=== PATIENT | female | born 1955 | race Caucasian/White ===

== ENCOUNTER 2017-07-12 09:55 | Emergency (ER) | payer OTHER, SELFPAY ==
[2017-07-12 10:14] VITALS: BP 141/66; PULSE 107; RESP 20; TEMP 37.5; O2SAT 97; BMI 23.5
[2017-07-12 10:26] LABS: UTC Influenza A Antigen Positive (Negative); UTC Influenza B Antigen Negative (Negative)
--- NOTE | 2017-07-12 11:08 | HMH.EDUTC ---
[facility] [place] Clinical Impression: Influenza A Disposition: Home, Self-Care Condition on Discharge: Good Instructions: DI for Influenza -- Adult Additional Instructions: * Start Tamiflu today if you are going to take it. Discussed risks, side effects, risk of allergic reaction, and possible benefits. We even discussed hallucinations and uncontrollable fevers. Encouraged to monitor closely.. * Lots of rest * Increase fluids, water, gatorade, powerade, pedialyte if /toddler/child * Monitor Temp. If fever develops, consider reevaluation since you have had no fever up until this point. Tylenol every 4 hours as needed no more then 5 times a day or 4000mg in 24 hours and/or ibuprofen every 6 hours as needed no more then 3200mg in 24 hours (as long as your primary care doctor has told you that it is ok to take both) for fever/aches/pain. ER if fever no less than 101 despite tylenol and Ibuprofen * OTC cold/flu/sinus medication is ok but pick one. Do not take multiple different ones as they have similar ingredients and you can overdose on cold medication. * You (or your child) are contagious until no fever, aches, chills x 24 hours without medication for symptoms. Prescriptions: Oseltamivir Phosphate [Tamiflu 75mg Capsule] 75 mg PO BID #10 cap Referrals: Colt Monge MD [Primary Care Provider] - (IMMEDIATELY for new or worsening symptoms, improvement followed by suddenly feeling worse OR no noticeable improvement over the next 48-72 hours. 911 for difficulty breathing ) Time of Disposition: 11:12 Medical Decision Making Vital Signs: 07/12/17 10:14 Temperature 99.5 F Temperature Source Temporal Artery Scan Pulse Rate [Right Brachial] 107 H Respiratory Rate 20 Blood Pressure [Right Arm] 141/66 Blood Pressure Mean [Right Arm] 91 Blood Pressure Source [Right Arm] Automatic Cuff Blood Pressure Position [Right Arm] Sitting 02 Sat by Pulse Oximetry 97 Oxygen Delivery Method Room Air - Lab Data Lab results reviewed: Yes: I reviewed the patient's lab results. Lab Results 07/12/17 10:11: Influenza Type A Ag Positive A, Influenza Type B Ag Negative - Charlie Inquiry Pt receiving controlled substance: No [facility] [place] - General Stated complaint: sick for 3 days weak achey Time Seen by Provider: 07/12/17 10:45 Mode of Arrival: Ambulatory Source of Information: Patient Limitations: No Limitations Description of Symptoms (Recalled from Triage Doc. by RN): Pt c/o flu-like symptoms x3 days HEENT Symptoms (Recalled from RN notes): No Resp Symptoms (Recalled from RN notes): Yes (Flu-like symptoms) Skin Symptoms (Recalled from RN notes): No MS Symptoms (Recalled from RN notes): No Functional Status (Recalled from RN notes): n/a - History of Present Illness Provider Complaint: c/o bodyaches, chills, fatigue since day before yesterday. I think I have the flu . Latanya with flu around 2-3 weeks ago. Robitussin and nyquil have helped. No fever. - Related Data Previous Rx's Medication Instructions Recorded Oseltamivir Phosphate [Tamiflu 75 mg PO BID #10 cap 07/12/17 75mg Capsule] - Worker's Comp Is this a Worker's Comp case?: No [facility] History I have reviewed the patient's past medical history: Yes Medical History: Denies:: Cancer, Diabetes Mellitus Type 1, Diabetes Mellitus Type 2, MRSA Other Medical History: Reports: Other (overactive bladder) Other Surgeries: Yes: No Previous Surgery Amputation: No Fractures: No - *Social History Smoking Status: Never smoker Alcohol Intake: never - Psychiatric History Expresses thoughts of harming self/others: None Suicide Plan Description: No Plan ROS Obtained: Yes Systems reviewed as appropriate & no additional complaints - Constitutional Constitutional: Reports as per HPI, Denies difficulty sleeping - Eyes Eyes: Denies eye discharge, Denies eye pain (eye pain) - ENT Ears, Nose, Mouth, and Throat: Denies difficulty swallowing, Denies otalgia, Reports na
--- NOTE | 2017-07-12 11:12 | ED_ITS ---
[facility] [place] Clinical Impression: Influenza A Disposition: Home, Self-Care Condition on Discharge: Good Instructions: DI for Influenza -- Adult Additional Instructions: * Start Tamiflu today if you are going to take it. Discussed risks, side effects , risk of allergic reaction, and possible benefits. We even discussed hallucinations and uncontrollable fevers. Encouraged to monitor closely.. * Lots of rest * Increase fluids, water, gatorade, powerade, pedialyte if infant/toddler/child * Monitor Temp. If fever develops, consider reevaluation since you have had no fever up until this point. Tylenol every 4 hours as needed no more then 5 times a day or 4000mg in 24 hours and/or ibuprofen every 6 hours as needed no more then 3200mg in 24 hours (as long as your primary care doctor has told you that it is ok to take both) for fever/aches/pain. ER if fever no less than 101 despite tylenol and Ibuprofen * OTC cold/flu/sinus medication is ok but pick one. Do not take multiple different ones as they have similar ingredients and you can overdose on cold medication. * You (or your child) are contagious until no fever, aches, chills x 24 hours without medication for symptoms. Prescriptions: Oseltamivir Phosphate [Tamiflu 75mg Capsule] 75 mg PO BID #10 cap Referrals: Colt Monge MD [Primary Care Provider] - (IMMEDIATELY for new or worsening symptoms, improvement followed by suddenly feeling worse OR no noticeable improvement over the next 48-72 hours. 911 for difficulty breathing ) Time of Disposition: 11:12 Medical Decision Making Vital Signs: 07/12/17 10:14 Temperature 99.5 F Temperature Source Temporal Artery Scan Pulse Rate [Right Brachial] 107 H Respiratory Rate 20 Blood Pressure [Right Arm] 141/66 Blood Pressure Mean [Right Arm] 91 Blood Pressure Source [Right Arm] Automatic Cuff Blood Pressure Position [Right Arm] Sitting 02 Sat by Pulse Oximetry 97 Oxygen Delivery Method Room Air - Lab Data Lab results reviewed: Yes: I reviewed the patient's lab results. Lab Results 07/12/17 10:11: Influenza Type A Ag Positive A, Influenza Type B Ag Negative - Charlie Inquiry Pt receiving controlled substance: No [facility] [place] - General Stated complaint: sick for 3 days weak achey Time Seen by Provider: 07/12/17 10:45 Mode of Arrival: Ambulatory Source of Information: Patient Limitations: No Limitations Description of Symptoms (Recalled from Triage Doc. by RN): Pt c/o flu-like symptoms x3 days HEENT Symptoms (Recalled from RN notes): No Resp Symptoms (Recalled from RN notes): Yes (Flu-like symptoms) Skin Symptoms (Recalled from RN notes): No MS Symptoms (Recalled from RN notes): No Functional Status (Recalled from RN notes): n/a - History of Present Illness Provider Complaint: c/o bodyaches, chills, fatigue since day before yesterday. I think I have the flu . Grandson with flu around 2-3 weeks ago. Robitussin and nyquil have helped. No fever. - Related Data Previous Rx's Medication Instructions Recorded Oseltamivir Phosphate [Tamiflu 75 mg PO BID #10 cap 07/12/17 75mg Capsule] - Worker's Comp Is this a Worker's Comp case?: No [facility] History I have reviewed the patient's past medical history: Yes Medical History: Denies:: Cancer, Diabetes Mellitus Type 1, Diabetes Mellitus Type 2, MRSA Other Medical History: Reports: Other (overactive bladder) Other Surgeries: Yes: No Previous Surgery Amp
[2017-07-12 11:17] VITALS: BP 128/82; PULSE 77; RESP 20; TEMP 37.1; O2SAT 99
== END 2017-07-12 11:18 | disposition home or self-care (01) ==
PROVIDERS: Emergency Provider Nurse Practitioner Family; Family Provider Family Medicine; PCP Family Medicine
DX: J10.1 Influenza due to other identified influenza virus with other respiratory manifestations (principal)
CPT/HCPCS: 87804; 99201

== ENCOUNTER → 2017-12-12 10:00 | Outpatient (CLI) | payer OTHER, SELFPAY ==
--- NOTE | 2017-12-12 10:08 | XR_ITS ---
XR knee LT 3V HISTORY: Pain and swelling following injury ITS.REASON: knee pain ORDERING PHYSICIAN: Maxwell Cruz MD PATIENT AGE: 62 years COMPARISON: None FINDINGS: There is mild osteoarthritis of the medial compartment. No fracture or dislocation. No lytic or blastic change. IMPRESSION: Mild osteoarthritis of the medial compartment, no acute fracture
== END ==
PROVIDERS: PCP Family Medicine; Visit Provider Emergency Medicine
DX: M25.562 Pain in left knee (principal)
CPT/HCPCS: 73562

== ENCOUNTER 2018-01-03 23:36 | Observation (INO) ==
[2018-01-04 00:13] LABS: Basophils # 0.1 K/mm3 (0-0.2); Basophils % 0.6 % (0.1-2.0); Eosinophils # 0.2 K/mm3 (0.0-0.4); Eosinophils % 1.4 % (0.1-12.0); Hematocrit 40.6 % (37.0-47.0); Hemoglobin 13.4 g/dL (12.2-16.2); Lymphocytes # 1.7 K/mm3 (0.7-4.5); Lymphocytes % 12.1 K/mm3 (10-50); Mean Corpuscular HGB Conc 33.1 g/dL (31.8-35.4); Mean Corpuscular Hemoglobin 29.5 pg (27.0-31.2); Mean Corpuscular Volume 89.2 fl (81-99); Mean Platelet Volume 6.9 fl (7.4-10.4); Monocytes # 0.5 K/mm3 (0.1-1.0); Monocytes % 3.7 % (1.7-9.3); Neutrophils # 11.7 K/mm3 (1.8-7.8); Neutrophils % 82.3 % (37.0-80.0); Platelet Count 323 K/mm3 (142-424); Red Blood Count 4.55 M/mm3 (4.20-5.40); Red Cell Distribution Width 12.7 % (11.5-17.5); White Blood Count 14.2 K/mm3 (4.8-10.8)
[2018-01-04 00:17] LABS: Appearance,Urine CLEAR (Clear); Bilirubin,Urine Negative (Negative); Blood, Urine Negative (Negative); Color,Urine YELLOW (Yellow); Glucose,Urine (UA) Negative (Negative); Ketones,Urine Negative (Negative); Leukocyte Esterase,Urine TRACE (Negative); Microscopic, Urine URINE MICROSCOPIC (MICROSCOPIC); PH,Urine 8.5 (5.0-8.5); Protein,Urine Negative (Negative); Specific Gravity, Urine 1.015 (1.005-1.030); Urobilinogen,Urine 0.2 EU/dl (0.2)
[2018-01-04 00:22] LABS: Albumin Level 4.2 gm/dL (3.4-5.0); Anion Gap 8.9 mEq/L (5-15); Bilirubin,Total 0.3 mg/dL (0.2-1.0); Calcium 9.3 mg/dL (8.5-10.1); Globulin 4.3 gm/dl (1.3-3.2); Potassium 3.9 mmoL/L (3.5-5.1); Total Protein,Serum 8.5 gm/dL (6.4-8.2)
[2018-01-04 00:27] LABS: Amorphous Sediment,Urine 1+ /lpf; Bacteria,Urine 1+ /lpf
--- NOTE | 2018-01-04 01:43 | Emergency Department Note ---
ED Disposition Clinical Impression: Appendicitis Qualifiers: Appendicitis type: acute appendicitis Acute appendicitis type: unspecified acute appendicitis type Qualified Code(s): K35.80 - Unspecified acute appendicitis Disposition: Admitted as Observation Condition on Discharge: Good Time of Disposition: 01:43 - Critical Care Critical Care Time: No Attestation: On 01/03/18, the high probability of a clinically significant, sudden or life threatening deterioration of the following system(s) required my full and direct attention, intervention and personal management. The time I documented below is in addition to time spent performing reported procedures but includes the following listed in this critical care notation. Medical Decision Making - Medical Records Medical records reviewed: Yes: I reviewed the patient's medical records. - Charlie Inquiry Pt receiving controlled substance: No Vital Signs: 01/03/18 23:43 01/04/18 01:19 01/04/18 01:53 Temperature 98.9 F 98.9 F Temperature Source Oral Pulse Rate 85 Pulse Rate [Right Brachial] 89 68 Respiratory Rate 16 16 16 Blood Pressure 175/89 Blood Pressure [Right Arm] 155/101 181/86 Blood Pressure Mean [Right Arm] 119 117 Blood Pressure Source [Right Arm] Automatic Cuff Blood Pressure Position [Right Arm] Sitting 02 Sat by Pulse Oximetry 99 99 Oxygen Delivery Method Room Air Room Air - Lab Data Lab results reviewed: Yes: I reviewed the patient's lab results. Lab Results 01/03/18 00:12: Urine Color Yellow, Urine Appearance Clear, Urine pH 8.5, Ur Specific [place] 1.015, Urine Protein Negative, Urine Glucose (UA) Negative, Urine Ketones Negative, Urine Blood Negative, Urine Nitrate Negative, Urine Bilirubin Negative, Urine Urobilinogen 0.2, Ur Leukocyte Esterase Trace, Urine WBC 3-5, Amorphous Sediment 1+, Urine Bacteria 1+ 01/03/18 23:55: WBC 14.2 H, RBC 4.55, Hgb 13.4, Hct 40.6, MCV 89.2, MCH 29.5, MCHC 33.1, RDW 12.7, Plt Count 323, MPV 6.9 L, Neut % (Auto) 82.3 H, Lymph % ( Auto) 12.1, [place] % (Auto) 3.7, Eos % (Auto) 1.4, Baso % (Auto) 0.6, Neut # (Auto ) 11.7 H, Lymph # (Auto) 1.7, [place] # (Auto) 0.5, Eos # (Auto) 0.2, Baso # (Auto ) 0.1 01/03/18 23:55: Sodium 136, Potassium 3.9, Chloride 101, Carbon Dioxide 30, Anion Gap 8.9, BUN 11, Creatinine 0.89, Estimated Creat Clear 76, Estimated GFR 65, Est GFR ( Amer) 78, Glucose 132 H, Calcium 9.3, Total Bilirubin 0.3, AST 10 L, ALT 20, Alkaline Phosphatase 123 H, Total Protein 8.5 H, Albumin 4.2, Globulin 4.3 H, Albumin/Globulin Ratio 1.0 L, Amylase 44, Lipase 159 01/04/18 00:00: Lactate 0.8 Result diagrams: 01/03/18 23:55 01/03/18 23:55 Orders (Tests/Meds): ED MEDICATIONS Generic Name Dose Route Start Last Admin Trade Name Freq PRN Reason Stop Dose Admin Piperacillin Sod/Tazobactam 100 mls @ 200 mls/hr 01/04/18 07:30 Sod 3.375 gm/ Sodium Chloride IV 01/18/18 01:29 Q6H ROSINA Protocol Sodium Chloride 1,000 mls @ 125 mls/hr 01/04/18 01:50 01/04/18 02:48 Sod Chlor 0.9% 1000ml Bag IV 02/03/18 01:49 125 mls/hr .Q8H ROSINA Administration Morphine Sulfate 2 mg 01/04/18 01:50 01/04/18 02:54 Morphine 2mg/Ml Syringe IV 02/03/18 01:49 2 mg Q4HP PRN Administration Severe Pain Ondansetron HCl 4 mg 01/04/18 01:50 Zofran 4mg/2ml Vial IV 02/03/18 01:49 Q4HP PRN Nausea Sodium Chloride 10 ml 01/04/18 01:50 Saline Flush 10ml Syringe IV 02/03/18 01:49 NEEDED PRN Maintain IV Site Discontinued Medications Generic Name Dose Route Start Last Admin Trade Name Freq PRN Reason Stop Dose Admin Sodium Chloride 1,000 mls @ 999 mls/hr 01/03/18 23:45 01/03/18 23:56 Sod Chlor 0.9% 1000ml Bag IV 01/04/18 00:45 999 mls/hr .Q1H1M ROSINA Administration Piperacillin Sod/Tazobactam 100 mls @ 200 mls/hr 01/04/18 01:30 01/04/18 01: 17 Sod 3.375 gm/ Sodium Chloride IV 01/18/18 01:29 200 mls/hr Q6H ROSINA Administration Protocol Sodium Chloride 1,000 mls @ 999 mls/hr 01/04/18 01:45 01/04/18 01:38 Sod Chlor 0.9% 1000ml Bag IV 01/04/18 02:45 999 mls/hr .Q1H1M ROSINA Administration Ketorolac Tromethamine 30 mg 01/03/18 23:47 01/03/18 23:56 Toradol 30mg/Ml Vial IV 01/03/18 23:48 30 mg ONCE ONE Administration Morphine Sulfate 2 mg 01/03/18 23:56 01/04/18 00:02 Morphine 2mg/2ml Syringe IV 01/03/18 23:57 2 mg ONCE ONE Administration Ondansetron HCl 4 mg 01/03/18 23:47 01/03/18 23:56 Zofran 4mg/2ml Vial IV 01/03/18 23:48 4 mg ONCE ONE Administration ORDERS Category Date Time Status CT abdomen pelvis wo con Stat Cat Scan 01/04/18 23:47 Taken Blood Culture Stat Micro 01/04/18 01:08 Stop Req - CT Data CT Scan: Abdomen, Pelvis Time Received: 01:[address] Reviewed: Yes: I have reviewed the patient's CT results, I discussed the CT results w/the radiologist, I have viewed the radiologist's interpretation Preliminary Findings: Abnormal Findings Narrative: + acute appendicitis / per V Rad - Physician Consults Physician Consulted: Dr Colin Negro Time: 01:20 Reason -: Admission, Pt condition - Reevaluation(s) Time: 01:16 Reevaluation #1: Upon evaluation patient appears medically stable, in mild distress only, denies any need for pain medications at this time, no further nausea or vomiting. Advised of results obtained, also need to undergo laparoscopic appendectomy within a few hours as discussed with Dr. Negro. Abdominal Pain HPI - General Chief Complaint: Abdominal Pain Stated Complaint: Stomach pains, vomiting Time Seen by Provider: 01/03/18 23:50 Mode of Arrival: Ambulatory Limitations: No Limitations Description of Symptoms (Recalled from ER Triage Doc. by RN): REPORTS SHE HAD AN EGD ON SUNDAY, WHICH SHOWED DIVERTICULOSIS. REPORTS SHE WAS DOING FINE UNTIL SUPPER TONIGHT WHEN SHE ATE, AND STARTED ABOUT AN HOUR AFTERWARDS WITH SEVERE ABDOMINAL PAIN AND VOMITING. STATES SHE CANNOT KEEP ANYTHING DOWN. - History of Present Illness HPI narrative: Patient is a 62-year-old male patient presenting to the emergency room with suprapubic pain, sudden onset around 7 PM, with single episode of nausea and vomiting. Patient advised that she has had some epigastric pain for the past 2 months that she has seen a outside machinist, Dr. Jett Sanchez, who has performed an EGD and colonoscopy, as well as a H. pylori test, and she was diagnosed with diverticulosis, as well as irritable bowel syndrome. Patient's suprapubic pain appears to be a new complaint, different from the epigastric pain the patient has had for the past 2 months. MD complaint: abdominal pain - Related Data Home Medications Medication Instructions Recorded Confirmed Darifenacin Hydrobromide 15 mg PO DAILY 12/31/17 01/03/18 [Darifenacin ER] Allergies Allergy/AdvReac Type Severity Reaction Status Date / Time clindamycin Allergy Verified 12/31/17 12:30 [facility] History I have reviewed the patient's past medical history: Yes Medical History: Denies:: Cancer, Diabetes Mellitus Type 1, Diabetes Mellitus Type 2, Internal Pacemaker, Lung Disease, MRSA, Seizures Other Medical History: Reports: Other (overactive bladder) Other Surgeries: Yes: No Previous Surgery. No: Pacemaker Amputation: No Fractures: No - Social History Smoking Status: Never smoker Alcohol Intake: never - Psychiatric History Expresses thoughts of harming self/others: None Suicide Plan Description: No Plan ROS Obtained: Yes All systems reviewed & no additional complaints, Yes Systems reviewed as appropriate & no additional complaints - Gastrointestinal Gastrointestingal: Reports: as per HPI, abdominal pain, nausea, vomiting Physical Exam - General General appearance: alert, in distress (mild) - Head Head exam: atraumatic, normocephalic, normal inspection - Neck Neck exam: Present: normal inspection, full ROM, trachea midline. Absent: meningismus, lymphadenopathy - Chest Chest inspection: Present: normal inspection, symmetric chest wall rise. Absent : tenderness - Respiratory Respiratory exam: Present: normal lung sounds bilaterally. Absent: respiratory distress - Cardiovascular Cardiovascular exam: Present: regular rate, normal rhythm. Absent: JVD - Abdominal Exam Abdominal exam: Present: soft, tenderness (suprapubic), guarding (suprapubic), rebound (suprapubic), normal bowel sounds. Absent: distention - Extremities Exam Extremities exam: Present: normal inspection, full ROM, normal capillary refill. Absent: calf tenderness - Back Exam Back exam: Present: normal inspection. Absent: tenderness - Neurological Exam Neurological exam: Present: alert, oriented X3 - Psychiatric Psychiatric exam: Present: normal affect, normal mood - Skin Skin exam: Present: warm, dry, intact, normal color
--- NOTE | 2018-01-04 06:26 | History & Physical Report ---
HPI HPI: This is a 62-year-old female who presented to the emergency department with pain of the mid-abdomen and right lower quadrant. She describes the pain as "sharp and crampy". Severity moderate. Duration "since 7:00 last night". Some nausea with an episode of emesis. No definitive fevers. Decreased appetite. Evaluation in the emergency department included a CT scan which revealed changes consistent with early appendicitis. Her white blood cell count was just over 14,000. [facility] History Medical History: Denies:: Cancer, Diabetes Mellitus Type 1, Diabetes Mellitus Type 2, Internal Pacemaker, Lung Disease, MRSA, Seizures Other Medical History: Reports: Other (overactive bladder) Other Surgeries: Yes: No Previous Surgery, Colonoscopy, EGD, Tubal Ligation. No : Pacemaker Amputation: No Fractures: No - *Social History Educational Level: Completed High School Smoking Status: Never smoker Alcohol Intake: never Occupational Status: retired Housing: house Household Members: family, children - Psychiatric History Expresses thoughts of harming self/others: None Suicide Plan Description: No Plan *Family Hx:: Cancer, Coronary Artery Disease, Diabetes, Heart Attack, Stroke, Tuberculosis Review of Systems - Constitutional Reports anorexia, Denies body ache(s) - Eyes Denies change in vision - ENT Denies change in voice - *Cardiovascular Denies chest pain - *Respiratory Denies cough - *Gastrointestinal Reports abdominal pain, Reports nausea, Reports vomiting, Denies bright, red blood in stools - *Genitourinary Denies abnormal vaginal bleeding - *Musculoskeletal Denies abnormal walking - Integumentary/Breasts Denies hair loss - *Neurologic Denies abnormal movements - Psychiatric Denies abnormal sleep pattern - Endocrine Denies cold intolerance - Hematologic/Lymphatic Denies easy bleeding - Allergic/Immunologic Denies GI upset with certain foods Meds Home Medications Medication Instructions Recorded Confirmed Type Darifenacin Hydrobromide 15 mg PO DAILY 12/31/17 01/03/18 History [Darifenacin ER] Allergies Allergy/AdvReac Type Severity Reaction Status Date / Time clindamycin Allergy Verified 12/31/17 12:30 Exam Vital signs and Labs for Last 24 Hours: Temp Pulse Resp BP Pulse Ox 98.6 F 82 16 133/50 98 01/04/18 04:00 01/04/18 04:00 01/04/18 04:00 01/04/18 04:00 01/04/18 04:00 Laboratory Results - last 24 hr 01/03/18 00:12: Urine Color Yellow, Urine Appearance Clear, Urine pH 8.5, Ur Specific [place] 1.015, Urine Protein Negative, Urine Glucose (UA) Negative, Urine Ketones Negative, Urine Blood Negative, Urine Nitrate Negative, Urine Bilirubin Negative, Urine Urobilinogen 0.2, Ur Leukocyte Esterase Trace, Urine WBC 3-5, Amorphous Sediment 1+, Urine Bacteria 1+ 01/03/18 23:55: WBC 14.2 H, RBC 4.55, Hgb 13.4, Hct 40.6, MCV 89.2, MCH 29.5, MCHC 33.1, RDW 12.7, Plt Count 323, MPV 6.9 L, Neut % (Auto) 82.3 H, Lymph % ( Auto) 12.1, [place] % (Auto) 3.7, Eos % (Auto) 1.4, Baso % (Auto) 0.6, Neut # (Auto ) 11.7 H, Lymph # (Auto) 1.7, [place] # (Auto) 0.5, Eos # (Auto) 0.2, Baso # (Auto ) 0.1 01/03/18 23:55: Sodium 136, Potassium 3.9, Chloride 101, Carbon Dioxide 30, Anion Gap 8.9, BUN 11, Creatinine 0.89, Estimated Creat Clear 76, Estimated GFR 65, Est GFR ( Amer) 78, Glucose 132 H, Calcium 9.3, Total Bilirubin 0.3, AST 10 L, ALT 20, Alkaline Phosphatase 123 H, Total Protein 8.5 H, Albumin 4.2, Globulin 4.3 H, Albumin/Globulin Ratio 1.0 L, Amylase 44, Lipase 159 01/04/18 00:00: Lactate 0.8 I & O for Last 24 hours: Intake & Output 01/01/18 01/02/18 01/03/18 01/04/18 11:59 11:59 11:59 11:59 Intake Total 2386 / 2386 Balance 2386 / 2386 Weight 166 lb 8 oz - Constitutional no acute distress - *Routine HEENT Exam Head: Present: normocephalic - *Routine Neck Exam Present: full ROM - Routine Chest/Breast/Axilla Exam Chest wall: Absent: tenderness - *Routine Respiratory Exam Absent: respiratory distress - *Routine Cardiovascular Exam Present: RRR - *Routine Abdominal Exam Present: soft, tenderness (RLQ) Comments: RLQ - *Routine Extremities Exam Present: full ROM. Absent: cyanosis, clubbing, edema - Routine Back/Spine/Pelvis Exam Back/Spine: Present: full ROM - *Routine Skin Exam Present: intact - *Routine Neurological Exam Present: alert, oriented X3 - Routine Psychiatric Exam Present: normal affect Results - Results Lab Results Last 24 Hours:: Laboratory Results - last 24 hr 01/03/18 00:12: Urine Color Yellow, Urine Appearance Clear, Urine pH 8.5, Ur Specific [place] 1.015, Urine Protein Negative, Urine Glucose (UA) Negative, Urine Ketones Negative, Urine Blood Negative, Urine Nitrate Negative, Urine Bilirubin Negative, Urine Urobilinogen 0.2, Ur Leukocyte Esterase Trace, Urine WBC 3-5, Amorphous Sediment 1+, Urine Bacteria 1+ 01/03/18 23:55: WBC 14.2 H, RBC 4.55, Hgb 13.4, Hct 40.6, MCV 89.2, MCH 29.5, MCHC 33.1, RDW 12.7, Plt Count 323, MPV 6.9 L, Neut % (Auto) 82.3 H, Lymph % ( Auto) 12.1, [place] % (Auto) 3.7, Eos % (Auto) 1.4, Baso % (Auto) 0.6, Neut # (Auto ) 11.7 H, Lymph # (Auto) 1.7, [place] # (Auto) 0.5, Eos # (Auto) 0.2, Baso # (Auto ) 0.1 01/03/18 23:55: Sodium 136, Potassium 3.9, Chloride 101, Carbon Dioxide 30, Anion Gap 8.9, BUN 11, Creatinine 0.89, Estimated Creat Clear 76, Estimated GFR 65, Est GFR ( Amer) 78, Glucose 132 H, Calcium 9.3, Total Bilirubin 0.3, AST 10 L, ALT 20, Alkaline Phosphatase 123 H, Total Protein 8.5 H, Albumin 4.2, Globulin 4.3 H, Albumin/Globulin Ratio 1.0 L, Amylase 44, Lipase 159 01/04/18 00:00: Lactate 0.8 CT scan - abdomen: report reviewed, image reviewed CT scan - pelvis: report reviewed, image reviewed Assessment and Plan (1) Appendicitis Current visit: Yes Status: Acute Qualifiers: Appendicitis type: acute appendicitis Acute appendicitis type: unspecified acute appendicitis type Qualified Code(s): K35.80 - Unspecified acute appendicitis Category: Surgical Code(s): K37 - Unspecified appendicitis Laparoscopic appendectomy-I have discussed the risks and benefits and she agrees to proceed
--- NOTE | 2018-01-04 07:21 | Pharmacy Consult Notes ---
[facility] Pharmacy VTE Monitoring - Patient Demographics Admission date: 01/04/18 Report Date: 01/04/18 Time: 07:21 Allergies/Adverse Reactions: Patient Allergies clindamycin Allergy (Verified 12/31/17 12:30) Height: 1.7 m Weight: 75.523 kg Patient Problems: Current Active Problems Appendicitis (Acute) - VTE Risk Labs: VTE Related Lab Results Hgb 13.4 g/dL (12.2-16.2) 01/03/18 23:55 Hct 40.6 % (37.0-47.0) 01/03/18 23:55 Plt Count 323 K/mm3 (142-424) 01/03/18 23:55 BUN 11 mg/dL (7-18) 01/03/18 23:55 Creatinine 0.89 mg/dL (0.55-1.02) 01/03/18 23:55 Estimated Creat Clear 76 mL/min (0-300) 01/03/18 23:55 Was VTE Risk Assessment Performed: No VTE Risk Level: Low Risk - Prophylaxis VTE Prophylaxis Ordered?: Yes Types of VTE Prophylaxis: TEDS Knee High Location of Applied Device: Bilateral Lower Extremeties - VTE Diagnosis Confirmed Treatment or plan recommended: Continue Current Treatment
--- NOTE | 2018-01-04 07:36 | Progress Note ---
[facility] Anesthesia Checklist - Patient Identification Patient Identification: Arm Band - Structural Data Admitted From: Inpatient Planned Operative Procedure/s: laparoscopic appendectomy Consent for Planned Operative Procedure(s) Verified: Yes Verified Documents: Surgical Consent, History and Physical - NPO Status Verified Time NPO: 00:00 - Additional verifications Anesthesia Reactions: No - Airway Assessment C-Spine Mobility Assessed: Yes (mp2) TMJ Mobility Assessed: Yes Dentition: Good Dentition - Neurological Assessment Level of Consciousness: Awake, Alert - Anesthesia Plan Anesthesia Risk discussed: Yes Anesthesia Plan: Verified ASA Class: I (e) Anesthesia Type: General [facility] Anesthesia HX I have reviewed the patient's past medical history: Yes Medical History: Denies:: Cancer, Diabetes Mellitus Type 1, Diabetes Mellitus Type 2, Internal Pacemaker, Lung Disease, MRSA, Seizures Other Medical History: Reports: Other (overactive bladder) Other Surgeries: Yes: Colonoscopy, EGD, Tubal Ligation. No: Pacemaker Amputation: No Fractures: No *Family Hx:: Cancer, Coronary Artery Disease, Diabetes, Heart Attack, Stroke, Tuberculosis
--- NOTE | 2018-01-04 09:27 | Operative Note ---
Date of procedure: 01/04/18 Pre-op Diagnosis:: Appendicitis Post-op Diagnosis:: Appendicitis with mild focal suppurative changes along the mid and distal appendix Procedure performed:: Laparoscopic appendectomy Surgeon:: Ciriol Negro MD ALGEBRA TEACHER:: Dirk Saucedo Anesthesia: GETA Estimated blood loss (mL): 10 Operative findings:: Inflamed/enlarged appendix (mid and distal) with focal mild suppurative changes No sign of perforation Operative note:: After informed consent was obtained, the patient was taken to the operating room and placed in the supine position. General anesthesia was induced and her abdomen was prepped and draped in a sterile fashion. After infiltration with local anesthetic an infraumbilical incision was made. A Veress needle was placed in position, but no loss of resistance was noted. The decision was made to proceed with a small stab incision in the left upper quadrant. The Veress needle was placed in position and the abdomen was insufflated. A 12 mm optical trocar was utilized to enter at the infraumbilical incision. Under direct visualization a 5 mm trocar was placed in the suprapubic position and an additional 5 mm trocar was placed in the left lower quadrant. The appendix was carefully elevated. Significant inflammation and enlargement was nylon the mid and distal appendix. Mild focal suppurative changes were noted. No perforation was seen. A smaller was made in the mesoappendix at the base and a BEATRICE stapler was utilized to transect at this site. A BEATRICE stapler was also utilized to take the mesoappendix. The appendix was placed in a retrieval bag and removed through the infraumbilical trocar site. Right lower quadrant was thoroughly irrigated. No active bleeding or sign of injury was noted. No areas of purulence were seen. The fascia at the infraumbilical trocar site was reapproximated with 0 Ethibond. All wounds were irrigated and skin was closed with 4-0 Monocryl. Sterile dressings were applied. The patient's anesthetic agents were reversed and she was extubated prior to transfer to recovery. Condition: stable Disposition: PACU Specimens:: Appendix Complications:: No immediate
--- NOTE | 2018-01-04 09:32 | Progress Note ---
[facility] Anesthesia Record Part II Discharge Time: 10:00 Destination: 2nd floor PACU nurse assessment reviewed?: Yes Patient Condition:: Good Anesthesia Complications:: None
--- NOTE | 2018-01-04 09:32 | Progress Note ---
[facility] Anesthesia Record Part I Intake, IV Amount: 1,400 Estimated blood loss (mL): 10 Urine output (mL): 50 Blood Pressure: 162/92 SaO2: 96 Pulse Rate: 90 Respiratory Rate: 16 Temperature: 97.8 F Patient is:: Drowsy, Stable Stable to PACU at:: 09:30
--- NOTE | 2018-01-04 15:51 | Discharge Summary ---
General - General Admission date:: 01/04/18 Discharge date: 01/04/18 HPI HPI: This is a 62-year-old female who presented to the emergency department with pain of the mid-abdomen and right lower quadrant. She describes the pain as "sharp and crampy". Severity moderate. Duration "since 7:00 last night". Some nausea with an episode of emesis. No definitive fevers. Decreased appetite. Evaluation in the emergency department included a CT scan which revealed changes consistent with early appendicitis. Her white blood cell count was just over 14,000. Hospital Course Hospital Course: The patient had a laparoscopic appendectomy. Please see operative report for detail. Postoperatively she progressed well. She remained afebrile with stable normal vital signs and was deemed appropriate for discharge on the afternoon of her operative day. Note: The patient did have focal suppurative changes and the decision to continue with a short course of p.o. antibiotics at discharge was made. Objective Vital signs: Temp Pulse Resp BP Pulse Ox 97.9 F 63 16 115/58 96 01/04/18 13:50 01/04/18 13:50 01/04/18 13:50 01/04/18 13:50 01/04/18 13:50 no acute distress - *Routine HEENT Exam Head: Present: normocephalic, atraumatic - *Routine Neck Exam Present: full ROM - Routine Chest/Breast/Axilla Exam Chest wall: Absent: tenderness - *Routine Respiratory Exam Absent: respiratory distress - *Routine Cardiovascular Exam Present: RRR - *Routine Abdominal Exam Present: soft, tenderness Comments: RLQ - *Routine Extremities Exam Present: full ROM. Absent: cyanosis, clubbing, edema - Routine Back/Spine/Pelvis Exam Back/Spine: Present: full ROM - *Routine Skin Exam Present: intact - *Routine Neurological Exam Present: alert, oriented X3 - Routine Psychiatric Exam Present: normal affect Results Labs on day of discharge: Labs from last 24 hours 01/04/18 01/04/18 01/03/18 Unknown 00:00 23:55 WBC RBC Hgb Hct MCV MCH MCHC RDW Plt Count MPV Neut % (Auto) Lymph % (Auto) Mason % (Auto) Eos % (Auto) Baso % (Auto) Neut # (Auto) Lymph # (Auto) Mason # (Auto) Eos # (Auto) Baso # (Auto) Sodium 136 Potassium 3.9 Chloride 101 Carbon Dioxide 30 Anion Gap 8.9 BUN 11 Creatinine 0.89 Estimated Creat Clear 76 Estimated GFR 65 Est GFR ( Amer) 78 Glucose 132 H Lactate 0.8 Calcium 9.3 Total Bilirubin 0.3 AST 10 L ALT 20 Alkaline Phosphatase 123 H Total Protein 8.5 H Albumin 4.2 Globulin 4.3 H Albumin/Globulin Ratio 1.0 L Amylase 44 Lipase 159 Urine Color Yellow Urine Appearance Clear Urine pH 8.0 Ur Specific Spencer 1.020 Urine Protein Negative Urine Glucose (UA) Negative Urine Ketones Negative Urine Blood Trace-i Urine Nitrate Negative Urine Bilirubin Negative Urine Urobilinogen 0.2 Ur Leukocyte Esterase Negative Urine RBC Occasional Urine WBC Occasional Ur Squamous Epith Cells None Amorphous Sediment Urine Bacteria Trace 01/03/18 01/03/18 23:55 00:12 WBC 14.2 H RBC 4.55 Hgb 13.4 Hct 40.6 MCV 89.2 MCH 29.5 MCHC 33.1 RDW 12.7 Plt Count 323 MPV 6.9 L Neut % (Auto) 82.3 H Lymph % (Auto) 12.1 Mason % (Auto) 3.7 Eos % (Auto) 1.4 Baso % (Auto) 0.6 Neut # (Auto) 11.7 H Lymph # (Auto) 1.7 Mason # (Auto) 0.5 Eos # (Auto) 0.2 Baso # (Auto) 0.1 Sodium Potassium Chloride Carbon Dioxide Anion Gap BUN Creatinine Estimated Creat Clear Estimated GFR Est GFR ( Amer) Glucose Lactate Calcium Total Bilirubin AST ALT Alkaline Phosphatase Total Protein Albumin Globulin Albumin/Globulin Ratio Amylase Lipase Urine Color Yellow Urine Appearance Clear Urine pH 8.5 Ur Specific Spencer 1.015 Urine Protein Negative Urine Glucose (UA) Negative Urine Ketones Negative Urine Blood Negative Urine Nitrate Negative Urine Bilirubin Negative Urine Urobilinogen 0.2 Ur Leukocyte Esterase Trace Urine RBC Urine WBC 3-5 Ur Squamous Epith Cells Amorphous Sediment 1+ Urine Bacteria 1+ DS: Diagnosis - Discharge Diagnosis (1) Appendicitis Status: Acute Problem details: Focal suppurative changes with no perforation Discharge Plan - Patient Discharge Instructions ACTIVITY: No heavy lifting DIET: advance to your usual diet - Follow up Plan Follow up with: Cirilo Negro MD [Staff Physician] - 01/15/18 Disposition: Home, Self-[facility] Medications: Home Medications Medication Instructions Recorded Confirmed Type Darifenacin Hydrobromide 15 mg PO DAILY 12/31/17 01/03/18 History [Darifenacin ER] Buspirone HCl [Buspar 5mg tablet] 5 mg PO DAILY 01/04/18 01/04/18 History Prescriptions/Medication Reconciliation: Continue Darifenacin Hydrobromide [Darifenacin ER] 15 mg PO DAILY Buspirone HCl [Buspar 5mg tablet] 5 mg PO DAILY
== END 2018-01-04 17:45 | disposition home or self-care (01) ==
LOC: 2ND 23:36 → ER 23:36 → 2ND 01-04 01:54
PROVIDERS: ADMIT Surgery; ATTEND Surgery
DX: K35.89 Other acute appendicitis

== ENCOUNTER → 2018-05-20 18:03 | Outpatient (CLI) | payer OTHER, SELFPAY | PROVIDERS: Visit Provider Nurse Practitioner Obstetrics & Gynecology | DX: Z01.419 Encounter for gynecological examination (general) (routine) without abnormal findings (principal) | CPT/HCPCS: 87086; 87088; 87186 ==

== ENCOUNTER → 2018-05-21 09:04 | Outpatient (CLI) | payer OTHER, SELFPAY ==
--- NOTE | 2018-05-21 09:06 | MM_ITS ---
MM Dig screening mamm BI w/CAD ORDERING PHYSICIAN : Inocente Davies MD PATIENT AGE: 63 years GENDER: Female COMPARISON: April 2016, May INDICATION: ITS.REASON: Routine Screening Mammogram No hormones. No new complaints. Laboratory family history TECHNIQUE: Standard CC and MLO images were obtained. R2 CAD reviewed. FINDINGS: Moderate residual fibroglandular elements most evident towards the superior breast. Overall pattern similar to prior study. Bilateral follow-up in one year be adequate. . IMPRESSION:...... Stable bilateral mammogram no new areas of concern BI-RADS Category: 1 Negative RECOMMENDED FOLLOW-UP: 1YR 1 YEAR FOLLOW-UP (A letter has been sent to the patient regarding results of the study.)
== END ==
PROVIDERS: PCP Family Medicine; Visit Provider Nurse Practitioner Obstetrics & Gynecology
DX: Z12.31 Encounter for screening mammogram for malignant neoplasm of breast (principal)
CPT/HCPCS: 77067

== ENCOUNTER 2018-11-14 12:30 | Outpatient (CLI) | payer OTHER, SELFPAY ==
[2018-11-14 12:43] VITALS: BMI 24.9
== END 2018-11-14 13:02 | disposition home or self-care (01) ==
PROVIDERS: PCP Family Medicine; Visit Provider Nurse Practitioner Family
DX: Z23 Encounter for immunization (principal)
CPT/HCPCS: 90471; 90632; 99201

== ENCOUNTER → 2019-06-02 10:51 | Outpatient (POV) | payer OTHER, SELFPAY | PROVIDERS: Visit Provider Nurse Practitioner Family | DX: Z00.00 Encounter for general adult medical examination without abnormal findings (principal) ==

== ENCOUNTER → 2019-07-02 10:55 | Outpatient (CLI) | payer OTHER, SELFPAY ==
--- NOTE | 2019-07-02 10:56 | MM_ITS ---
PROCEDURE: MM DIG SCREENING MAMM BI W/CAD CLINICAL INDICATION: screening mammogram There is no personal or family history of breast cancer COMPARISON: [facility] DIG MAMM-SCREEN GREGOR from 04/05/2016 [facility] DIG MAMM-SCREEN GREGOR W/CAD from 05/07/2017 [facility] MM Dig screening mamm BI w/CAD from 05/21/2018 TECHNIQUE: Standard CC and MLO images and 3D Tomosinthisis was obtained. R2 CAD reviewed. FINDINGS: Scattered fibroglandular densities are seen in the central portions of both breasts and the findings of bilateral and symmetrical. Jama images were reviewed showing no suspicious abnormality. There are no suspicious microcalcifications. IMPRESSION: Fibrofatty parenchyma with no suspicious lesions seen BI-RAD Category: 1 Negative FOLLOW-UP: 1YR 1 Year Follow-up (A letter has been sent to the patient regarding results of the study.) Dictated by: Dr. Je Mendoza MD 07/02/2019 12:[address] Je Mendoza MD in [place] 07/02/2019 12:29
== END ==
PROVIDERS: PCP Family Medicine; Visit Provider Nurse Practitioner Obstetrics & Gynecology
DX: Z12.31 Encounter for screening mammogram for malignant neoplasm of breast (principal)
CPT/HCPCS: 77063; 77067

== ENCOUNTER → 2020-09-01 16:42 | Outpatient (CLI) | payer OTHER, SELFPAY ==
--- NOTE | 2020-09-01 16:42 | MM_ITS ---
PROCEDURE: MM DIG SCREENING MAMM BI W/CAD Digital Breast Tomosynthesis Included CLINICAL INDICATION: screening xmg There is no personal or family history of breast cancer. COMPARISON: MG [facility] MM Dig screening mamm BI w/CAD from 05/21/2018 MG MM DIG SCREENING MAMM BI W/CAD from 07/02/2019 TECHNIQUE: Standard CC and MLO images and 3D Tomosynthesis was obtained. R2 CAD reviewed. FINDINGS: Moderate fibroglandular densities are seen in the central portions of both breasts and the findings of bilateral and symmetrical. A CAD marking right breast was reviewed and appears to be asymmetric glandular elements confirmed with libra images. There is no suspicious lesion in either breast and no suspicious microcalcifications IMPRESSION: Moderate breast density with no suspicious lesions seen BI-RAD Category: 1 Negative FOLLOW-UP: 1YR 1 Year Follow-up (A letter has been sent to the patient regarding results of the study.) Dictated by: Dr. Je Mendoza MD 09/08/2020 10:22 Dr. Je Mendoza MD in [place] 09/08/2020 10:22
== END ==
PROVIDERS: PCP Family Medicine; Visit Provider Nurse Practitioner Obstetrics & Gynecology
DX: Z12.31 Encounter for screening mammogram for malignant neoplasm of breast (principal)
CPT/HCPCS: 77063; 77067

== ENCOUNTER → 2020-09-14 08:13 | Outpatient (CLI) | payer OTHER, SELFPAY ==
[2020-09-14 08:45] LABS: Basophils # 0.1 K/mm3 (0-0.2); Basophils % 1.4 % (0.1-2.0); Eosinophils # 0.3 K/mm3 (0.0-0.4); Eosinophils % 4.7 % (0.1-12.0); Hemoglobin 12.8 g/dL (12.2-16.2); Lymphocytes # 1.9 K/mm3 (0.7-4.5); Lymphocytes % 36.5 % (10-50); Mean Corpuscular HGB Conc 32.9 g/dL (31.8-35.4); Mean Corpuscular Hemoglobin 29.9 pg (27.0-31.2); Mean Platelet Volume 7.4 fl (7.4-10.4); Monocytes # 0.3 K/mm3 (0.1-1.0); Monocytes % 5.5 % (1.7-9.3); Neutrophils # 2.8 K/mm3 (1.8-7.8); Neutrophils % 51.9 % (37.0-80.0); Platelet Count 270 K/mm3 (142-424); Red Blood Count 4.28 M/mm3 (4.20-5.40); Red Cell Distribution Width 12.5 % (11.5-17.5); White Blood Count 5.3 K/mm3 (4.8-10.8)
[2020-09-14 09:27] LABS: Chloride 106 mmol/L (98-107); Potassium 4.3 mmoL/L (3.5-5.1); Sodium 140 mmol/L (136-145)
[2020-09-14 09:29] LABS: Alanine Aminotransferase 12 U/L (12-78); Anion Gap 11.3 mEq/L (5-15); Aspartate Amino Transferase 21 U/L (14-36); Blood Urea Nitrogen 10 mg/dl (7-17); Carbon Dioxide 27 mmol/L (22.0-30.0); Estimated Glomerular Filt Rate 63 ml/min (>60); GFR (African American) 77 ML/MIN (>60)
[2020-09-14 09:30] LABS: Albumin Level 4.5 g/dl (3.5-5.0); Albumin/Globulin Ratio 1.5 (1.1-1.8); Alkaline Phosphatase 96 U/L (38-126); Bilirubin,Total 0.5 mg/dl (0.2-1.3); Calcium 9.4 mg/dl (8.4-10.2); Chol/HDL Ratio 3.2 (1-3.5); Cholesterol 234 mg/dl (140-200); Globulin 3.1 g/dL (1.3-3.2); Glucose 102 mg/dl (74-100); HDL Cholesterol 73 mg/dl (40-60); Total Protein,Serum 7.6 g/dl (6.3-8.2); Triglycerides 64 mg/dl (30-150); VLDL Cholesterol 13 mg/dL (0-40)
[2020-09-14 09:41] LABS: Direct LDL Cholesterol 123.02 mg/dL (100-129)
== END ==
PROVIDERS: Visit Provider Nurse Practitioner Obstetrics & Gynecology
DX: Z01.419 Encounter for gynecological examination (general) (routine) without abnormal findings (principal)
CPT/HCPCS: 36415; 80053; 80061; 85025

== ENCOUNTER → 2021-06-22 17:47 | Outpatient (CLI) | payer OTHER, SELFPAY ==
[2021-06-22 17:50] LABS: Adenovirus,PCR Not Detected (NotDetected); Bordetella Pertussis Not Detected (NotDetected); Chlamydophila Pneumoniae, PCR Not Detected (NotDetected); Coronavirus 229E Not Detected (NotDetected); Coronavirus NL63 Not Detected (NotDetected); Coronavirus OC43 Not Detected (NotDetected); Coronovirus HKU1,PCR Not Detected (NotDetected); Human Metapneumovirus Not Detected (NotDetected); Influenza A, PCR Not Detected (NotDetected); Influenza AH1, 2009 Not Detected (NotDetected); Influenza AH1, PCR Not Detected (NotDetected); Influenza AH3,PCR Not Detected (NotDetected); Influenza B, PCR Not Detected (NotDetected); Mycoplasma Pneumoniae, PCR Not Detected (NotDetected); Parainfluenza 1, PCR Not Detected (NotDetected); Parainfluenza 2, PCR Not Detected (NotDetected); Parainfluenza 3, PCR Not Detected (NotDetected); Parainfluenza 4, PCR Not Detected (NotDetected); Respiratory Syncytial Virus Not Detected (NotDetected); Rhinovirus/Enterovirus Not Detected (NotDetected)
[2021-06-22 20:07] LABS: Coronavirus 19, PCR Detected (NotDetected)
== END ==
PROVIDERS: Visit Provider Emergency Medicine
DX: U07.1 COVID-19 (principal); R05.9 Cough, unspecified
CPT/HCPCS: 87581; 87632; 87798; C9803; U0003; U0005

== ENCOUNTER → 2021-07-26 11:55 | Outpatient (CLI) | payer OTHER, SELFPAY ==
--- NOTE | 2021-07-26 12:04 | XR_ITS ---
FINAL REPORT TECHNIQUE: Chest PA & Lateral CLINICAL HISTORY: chest pain FINDINGS: 2 views of the chest were performed. The heart size is normal. The mediastinum is within normal limits. There is scarring or atelectasis in the medial right lung base. There are no pleural effusions. There is no pneumothorax. The bony thorax appears intact. IMPRESSION: Right base scarring or atelectasis. Reviewed, Interpreted and Dictated by Darwin Herrera MD Transcribed by Camilo Jacobs Authenticated by Darwin Herrera MD on 07/26/2021 01:31:46 PM [facility]
[2021-07-26 12:45] LABS: Basophils # 0.1 K/mm3 (0-0.2); Basophils % 1.8 % (0.1-2.0); Eosinophils # 0.1 K/mm3 (0.0-0.4); Eosinophils % 1.6 % (0.1-12.0); Hematocrit 39.7 % (37.0-47.0); Lymphocytes # 1.9 K/mm3 (0.7-4.5); Lymphocytes % 30.9 % (10-50); Mean Corpuscular HGB Conc 32.8 g/dL (31.8-35.4); Mean Corpuscular Hemoglobin 30.5 pg (27.0-31.2); Mean Corpuscular Volume 93.2 fl (81-99); Mean Platelet Volume 7.9 fl (7.4-10.4); Monocytes # 0.4 K/mm3 (0.1-1.0); Monocytes % 6.3 % (1.7-9.3); Neutrophils # 3.6 K/mm3 (1.8-7.8); Neutrophils % 59.5 % (37.0-80.0); Platelet Count 319 K/mm3 (142-424); Red Blood Count 4.26 M/mm3 (4.20-5.40); Red Cell Distribution Width 13.9 % (11.5-17.5); White Blood Count 6.1 K/mm3 (4.8-10.8)
[2021-07-26 13:16] LABS: Alanine Aminotransferase 17 U/L (12-78); Albumin Level 4.2 g/dl (3.5-5.0); Alkaline Phosphatase 98 U/L (38-126); Aspartate Amino Transferase 28 U/L (14-36); Bilirubin,Direct 0.1 mg/dl (0.0-0.4); Bilirubin,Indirect 0.3 mg/dL (0.0-0.9); Bilirubin,Total 0.4 mg/dl (0.2-1.3); Bilirubin,Unconjugated 0.3 mg/dL (0.0-1.1); Blood Urea Nitrogen 11 mg/dl (7-17); Calcium 8.7 mg/dl (8.4-10.2); Carbon Dioxide 29 mmol/L (22.0-30.0); Chloride 105 mmol/L (98-107); Chol/HDL Ratio 3.5 (1-3.5); Cholesterol 232 mg/dl (140-200); Estimated Glomerular Filt Rate 84 ml/min (>60); GFR (African American) 102 ML/MIN (>60); Glucose 91 mg/dl (74-100); HDL Cholesterol 67 mg/dl (40-60); Sodium 139 mmol/L (136-145); Total Protein,Serum 6.9 g/dl (6.3-8.2); Triglycerides 97 mg/dl (30-150); VLDL Cholesterol 19 mg/dL (0-40)
[2021-07-26 13:28] LABS: Direct LDL Cholesterol 137.44 mg/dL (100-129)
[2021-07-26 13:32] LABS: 25-OH Vitamin D, Total 38.1 ng/mL (30-100)
[2021-07-26 13:34] LABS: Free T4 (Free Thyroxine) 1.21 ng/dl (0.78-2.19)
[2021-07-26 13:48] LABS: Thyroid Stimulating Hormone 2.52 uIU/mL (0.465-4.68)
--- NOTE | 2021-07-26 13:59 | CA_ITS ---
APPROVED REPORT EXAM: Comprehensive 2D, Doppler, and color-flow Echocardiogram Manager Field Sales: Caroline Morrison RCS, RVS Ht: 5 ft 7 in Wt: 159lbs BSA: 1.83 BP: 157/84 mmHg Indications: s/p COVID, CP, Family hx-HD 2D Dimensions LVOT 1.97 cm (M/F) 1.5-2.5 LA Volume 41.40 mL LA Volume Index 22.60 mL/m2 (M/F) 16-34 M-Mode Dimensions RVDd 3.77 cm (0.9-2.6) LA Diam 3.22 cm (1.9-4.0) LVDd 4.21 cm (3.5-5.7) Ao Diam 2.49 cm (2.0-3.7) LVDs 3.05 cm (3.5-5.7) IVSd 1.20 cm (0.6-1.1) PWd 0.96 cm (0.6-1.1) EF (Teich) 53.90% EPSs 0.89 cm FS 27.60% EDV (Teich) 79.00 mL TAPSE 1.92 (<1.7) ESV (Teich) 36.40 mL LV Diastology E Decel Time 180.00 (160-240 msec) E/A Ratio 1.04 MED E' 8.90 (< 7 cm/sec) MED A' 10.20 cm/s E'/MED E' Ratio 9.34 (>14) LAT E' 11.80 (<10 cm/sec) LAT A' 8.90 cm/s E/LAT E' Ratio 7.04 (>14) Aortic Valve LVOT Max 98.00 (70-110 cm/s) LVOT VTI 21.86 cm AoV Peak Remigio. 214.00 (50-130 cm/s) AO Peak GR. 18.30 mmHg AO Mean GR. 9.00 (<5 mmHg) AO VTI 45.02 (18-25 cm) SHIRLEY (VTI) 1.48 (2.5-4.5 cm2) Mitral Valve MV A Velocity 80.00 (40-130 cm/s) E/A Ratio 1.04 MV Decel. Time 180.00 (160-240 ms) Pulmonary Valve PV Peak Velocity 76.00 (50-150 cm/s) Tricuspid Valve TR P. Velocity 215.00 cm/s Left Ventricle Left atrium normal size, left ventricle is normal size, there is no concentric left ventricular hypertrophy, visually estimated ejection fraction 55% with no regional wall motion abnormality, diastolic parameters are within normal range. Right Ventricle Right atrium and right ventricle are normal size and contractility. Aortic Valve Aortic valve is minimally thickened and fibrosed, there is no aortic stenosis or aortic insufficiency. Mitral Valve Mitral valve grossly normal, there is trace mitral regurgitation. Tricuspid Valve Tricuspid grossly normal, there is trace tricuspid regurgitation, tricuspid regurgitation jet velocity is inadequate for calculation of the right ventricular systolic pressure. Pulmonic Valve Pulmonic valve is poorly visualized. Great Vessels Aortic root is normal size. Inferior vena cava is poorly visualized. Pericardium No significant pericardial effusion noted. Conclusion 1. Normal left ventricular size, preserved left ventricular systolic function, visually estimated ejection fraction 55% with no regional wall motion abnormality, diastolic parameters are within normal range. 2. Trace mitral and tricuspid regurgitation. 3. No significant pericardial effusion. 4. Inferior vena cava is poorly visualized. Electronically signed by : Corwin Rubin MD 07/26/2021 21:07:25
== END ==
PROVIDERS: PCP Family Medicine; Visit Provider Internal Medicine
DX: R07.89 Other chest pain (principal); I45.10 Unspecified right bundle-branch block; R94.31 Abnormal electrocardiogram [ECG] [EKG]; I63.9 Cerebral infarction, unspecified; E11.9 Type 2 diabetes mellitus without complications; I11.9 Hypertensive heart disease without heart failure
CPT/HCPCS: 36415; 71046; 80048; 80061; 80076; 82306; 84439; 84443; 85025; 93306

== ENCOUNTER → 2021-07-29 10:46 | Outpatient (CLI) | payer OTHER, SELFPAY ==
--- NOTE | 2021-07-29 | CA_ITS ---
APPROVED REPORT Exam: Exercise Treadmill Technologist: Roseline Prince, Ht: 5 ft 7 in Wt: 155 lbs BSA: 1.81 m2 HR: 50 bpm BP: 175/88 mmHg Rhythm: NSR, RBBB Medical History Medical History: Diabetes Medications: EnABLEX,,,,, Allergies: CLINDAMYCIN Cardiac Risk Factors: Diabetes , FHX of CAD Stress Test Details Test: Manual Treadmill, Exercise stress testing was performed using a modified Gama protocol. HR Resting HR: 73 bpm Max Heart Rate (APMHR): 156.444353 bpm Max HR Achieved: 140 bpm Target HR (85% APMHR): 132.028619 bpm % of APMHR: 89.74 Recovery HR: 67 bpm BP Resting BP: 175/88 mmHg Max BP: 199/75 mmHg Recovery BP: 199.0/67.0 mmHg ECG Resting ECG: NSR, RBBB Clinical Reason for Termination: Dyspnea Exercise duration: 07:31 min Highest Stage Achieved: Exercise capacity: 10.1 METs Stress ECG Conclusion MAX HR: 140 MAX B/P: 200/95 METS: 10.1 TEST STOPPED DUE TO: SOA NO CP. FREQUENT PVXS <1.[address] SEGMENT CHANGES. NEGATIVE STRESS. Test Summary Stage 3 01:31 0.0 2.0 163 . . . Protocol changed to Manual Treadmill REST . . . . . . . Sitting REST 11:15 0.0 1.2 73 . 175/ 88 . . Stage 1 01:00 10.0 1.7 94 . . . . Stage 1 02:00 10.0 1.7 102 . . . . Stage 1 03:00 10.0 1.7 103 . 170/ 90 . . Stage 2 01:00 12.0 2.5 109 . . . . Stage 2 02:00 12.0 2.5 118 . . . . Stage 2 03:00 12.0 2.5 119 . 185/ 90 . . Stage 3 01:00 14.0 3.4 170 . . . . Stage 3 . . . . . . . Protocol changed to Manual Treadmill Stage 3 01:31 0.0 2.0 163 . . . Stop exercise at 07:31 RECOVERY 01:00 0.0 0.0 105 . . . . RECOVERY 02:00 0.0 0.0 90 . . . . RECOVERY 03:00 0.0 0.0 71 . . . . RECOVERY 04:00 0.0 0.0 70 . . . . RECOVERY 05:00 0.0 0.0 66 . . . . RECOVERY 06:00 0.0 0.0 72 . 199/ 75 . . RECOVERY 06:59 0.0 0.0 69 . 199/ 75 . . Electronically signed by : Corwin Rubin MD 07/29/2021 15:32:26
--- NOTE | 2021-07-29 10:51 | NM_ITS ---
APPROVED REPORT Exam: Nuclear Stress Test Indication: chest pain Patient Location: Outpatient Stress Tech: Roseline Prince IA Tech:RIA Lobo RT(R)(N) Ht: 57 ft 0 in Wt: 155 lbs Bra Size: b HR: 50 bpm BP: 175/100 mmHg BSA: 9.78 m2 Procedure: Patient exercised on Gama protocol 7:31 minutes and sec, resting heart rate 50 bpm, resting blood pressure 175/100 mmHg, with exercise maximum heart rate achived was 140 bpm which is 111 % of the maximum predicted heart rate and blood pressure was 200/95 mmHg. Test was stopped due to SOA. Patient denied any complaint of chest pain. Patient has good exercise capacity, achieved 10.1 METs of workload on treadmill, the blood pressure response to exercise was Hypertensive. Electrocardiogram Resting electrocardiogram shows sinus rhythm right bundle branch block, with exercise there is less than 1.[address] segment depression noted from the baseline EKG. The EKG portion of the exercise Myoview is negative for ischemia. Cardiac Stress and Resting SPECT Images: Cardiac Stress and Resting SPECT images were obtained using technetium 99m Myoview 30.9 mCi stress and 10.67 mCi at rest. Gated SPECT for analysis of segmental wall motion and calculation of the ejection fraction also done. Cardiac stress and resting SPECT images show uniform myocardial activity without segmental perfusion abnormality, computer derived ejection fraction is 45% with no regional wall motion abnormality, right ventricle is mildly enlarged with normal contractility. Conclusion: 1. The EKG portion of the exercise Myoview is negative for ischemia, patient has good exercise capacity achieved 10.1 METs of workload on treadmill, the blood pressure response to exercise hypertensive, there was no exercise-induced chest discomfort. 2. No scintigraphic evidence of reversible ischemia seen, compared right ejection fraction 45% with no regional wall motion abnormality, right ventricle is mildly enlarged with normal contractility. Electronically signed by : Corwin Rubin MD 07/29/2021 15:35:15
== END ==
PROVIDERS: PCP Family Medicine; Visit Provider Internal Medicine
DX: R07.89 Other chest pain (principal); I45.10 Unspecified right bundle-branch block; R94.31 Abnormal electrocardiogram [ECG] [EKG]
CPT/HCPCS: 78452; 93017; A9502

== ENCOUNTER → 2021-09-22 11:04 | Outpatient (CLI) | payer OTHER, SELFPAY ==
--- NOTE | 2021-09-22 11:04 | MM_ITS ---
PROCEDURE INFORMATION: Exam: MG Bilateral Screening 3D Mammography Exam date and time: 09/22/2021 11:00 AM Age: 66 years old Clinical indication: Screening examination TECHNIQUE: Imaging protocol: Bilateral Screening tomosynthesis and 2D mammography including computer-aided detection (CAD) when performed. COMPARISON: 1. MG MM DIG SCREENING MAMM BI W/CAD 09/01/2020 4:40 PM 2. MG MM DIG SCREENING MAMM BI W/CAD 07/02/2019 11:05 AM FINDINGS: MAMMOGRAPHY: Breast composition: The breasts are heterogeneously dense, which may obscure small masses. Mass: None. Architectural distortion: None. Calcifications: No suspicious calcifications. Asymmetric density: None. Skin thickening: None. Axillary adenopathy: None. IMPRESSION: No mammographic evidence of malignancy. Annual screening is recommended unless otherwise clinically indicated. ASSESSMENT: BI-RADS Category 1: Negative
== END ==
PROVIDERS: PCP Family Medicine; Visit Provider Nurse Practitioner Obstetrics & Gynecology
DX: Z12.31 Encounter for screening mammogram for malignant neoplasm of breast (principal)
CPT/HCPCS: 77063; 77067

== ENCOUNTER → 2021-09-26 12:31 | Outpatient (CLI) | payer OTHER, SELFPAY ==
[2021-09-26 13:46] LABS: Alanine Aminotransferase 19 U/L (12-78); Albumin Level 4.3 g/dl (3.5-5.0); Alkaline Phosphatase 95 U/L (38-126); Aspartate Amino Transferase 26 U/L (14-36); Bilirubin,Direct 0.1 mg/dl (0.0-0.4); Bilirubin,Indirect 0.4 mg/dL (0.0-0.9); Bilirubin,Total 0.5 mg/dl (0.2-1.3); Bilirubin,Unconjugated 0.5 mg/dL (0.0-1.1); Chol/HDL Ratio 2.3 (1-3.5); Cholesterol 162 mg/dl (140-200); HDL Cholesterol 70 mg/dl (40-60); Total Protein,Serum 7.2 g/dl (6.3-8.2); Triglycerides 86 mg/dl (30-150); VLDL Cholesterol 17 mg/dL (0-40)
[2021-09-26 13:57] LABS: Direct LDL Cholesterol 62.74 mg/dL (100-129)
== END ==
PROVIDERS: PCP Family Medicine; Visit Provider Physician Assistant
DX: I11.9 Hypertensive heart disease without heart failure (principal); E11.9 Type 2 diabetes mellitus without complications
CPT/HCPCS: 36415; 80061; 80076

== ENCOUNTER → 2022-07-05 19:08 | Outpatient (CLI) | payer MEDICARE, OTHER, SELFPAY | PROVIDERS: PCP Emergency Medicine; Visit Provider Emergency Medicine | DX: R82.90 Unspecified abnormal findings in urine (principal); B96.29 Other Escherichia coli [E. coli] as the cause of diseases classified elsewhere | CPT/HCPCS: 87086; 87088; 87186 ==

== ENCOUNTER → 2022-07-13 10:47 | Outpatient (CLI) | payer MEDICARE, OTHER, SELFPAY ==
--- NOTE | 2022-07-13 10:55 | XR_ITS ---
FINAL REPORT CLINICAL HISTORY: dyspnea COMPARISON: 07/06/2021 FINDINGS: Two views of the chest show lungs to be clear. Pulmonary vascularity is normal. Heart and mediastinum are unremarkable. No pleural effusion is present. IMPRESSION: No active disease. Reviewed, Interpreted and Dictated by Darwin Herrera MD Transcribed by Fela Maloney Authenticated and [facility]
--- NOTE | 2022-07-13 11:20 | CA_ITS ---
APPROVED REPORT EXAM: Comprehensive 2D, Doppler, and color-flow Echocardiogram Client Support Professional: Hannah Veloz RVT Ht: 5 ft 7 in Wt: 157lbs BSA: 1.82 BP: 111/57 mmHg Indications: SOA,FATIGUE,HTN,RBBB,HX OF COVID 2D Dimensions LVOT 2.11 cm (M/F) 1.5-2.5 LA Volume 35.00 mL LA Volume Index 19.13 mL/m2 (M/F) 16-34 M-Mode Dimensions RVDd 3.00 cm (0.9-2.6) LA Diam 3.64 cm (1.9-4.0) LVDd 3.75 cm (3.5-5.7) Ao Diam 2.51 cm (2.0-3.7) LVDs 2.47 cm (3.5-5.7) IVSd 1.18 cm (0.6-1.1) PWd 0.68 cm (0.6-1.1) EF (Teich) 63.80% FS 34.10% EDV (Teich) 60.00 mL TAPSE 2.78 (<1.7) ESV (Teich) 21.70 mL LV Diastology E Decel Time 207.00 (160-240 msec) E/A Ratio 1.1 MED E' 6.60 (< 7 cm/sec) E'/MED E' Ratio 9.88 (>14) LAT E' 8.90 (<10 cm/sec) E/LAT E' Ratio 7.33 (>14) Aortic Valve LVOT Max 85.00 (70-110 cm/s) LVOT VTI 19.90 cm AoV Peak Remigio. 191.00 (50-130 cm/s) AO Peak GR. 14.60 mmHg AO Mean GR. 6.90 (<5 mmHg) AO VTI 40.61 (18-25 cm) SHIRLEY (VTI) 1.71 (2.5-4.5 cm2) Mitral Valve MV E Max Remigio. 65.00 (40-130 cm/s) MV A Velocity 60.00 (40-130 cm/s) E/A Ratio 1.09 MV Decel. Time 207.00 (160-240 ms) MV PHT 61.00 ms Pulmonary Valve PV Peak Velocity 96.00 (50-150 cm/s) Tricuspid Valve TR P. Velocity 177.00 cm/s RAP Estimate 10.00 mmHg RVSP 22.50 mmHg Left Ventricle Left atrium is mildly enlarged, left ventricular normal size, mild concentric left ventricular hypertrophy, estimated ejection fraction of 55% with no regional wall motion abnormality, grade 1 diastolic dysfunction seen without tissue Doppler evidence of a stopped atrial pressure. Right Ventricle Right atrium and right ventricular mildly large with normal contractility. Aortic Valve Aortic valve is minimally thickened and fibrosed there is no aortic stenosis or aortic insufficiency. Mitral Valve Mitral valve grossly normal, there is trace mitral regurgitation. Tricuspid Valve Tricuspid valve grossly normal, there is trace tricuspid regurgitation, tricuspid regurgitation jet velocity is inadequate for calculation of the right ventricular systolic pressure. Pulmonic Valve Pulmonic valve is poorly visualized. Great Vessels Aortic root is normal size. Inferior vena cava is poorly visualized. Pericardium No significant pericardial effusion noted. Conclusion 1. Mild biatrial enlargement, normal left ventricular size, mild concentric left ventricular hypertrophy, estimated ejection fraction 55% with no regional wall motion abnormality, grade 1 diastolic dysfunction seen without tissue Doppler evidence of late left atrial pressure. 2. Trace mitral and tricuspid regurgitation. 3. Mildly in the right ventricle with normal contractility. 4. No significant pericardial effusion noted. 5. Inferior vena cava is poorly visualized. Electronically signed by : Corwin Rubin MD 07/14/2022 17:57:46
== END ==
PROVIDERS: PCP Emergency Medicine; Visit Provider Physician Assistant
DX: I10 Essential (primary) hypertension (principal); I45.10 Unspecified right bundle-branch block; R06.00 Dyspnea, unspecified; R94.31 Abnormal electrocardiogram [ECG] [EKG]
CPT/HCPCS: 71046; 93306

== ENCOUNTER → 2022-07-25 09:41 | Outpatient (CLI) | payer MEDICARE, OTHER, SELFPAY ==
--- NOTE | 2022-07-25 09:41 | CT_ITS ---
FINAL REPORT TECHNIQUE: Axial images of the chest was performed with and without contrast by computed tomography. Sagittal and coronal reformatted images were obtained and reviewed. This study was performed with techniques to keep radiation doses as low as reasonably achievable (ALARA). Individualized dose reduction techniques using automated exposure control or adjustment of mA and/or kV according to the patient's size were employed. 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 There is mild pulmonary scarring in this region. No definite sequestration is identified. There is a calcified granuloma in the right upper lobe. There is no pleural or pericardial effusion. There is mild scarring the left lung base. 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 No acute abnormality identified. Reviewed, Interpreted and Dictated by Jevon Leija III, MD Transcribed by Fela Maloney Authenticated and [facility]
[2022-07-25 10:08] LABS: Blood Urea Nitrogen 15 mg/dl (7-17); Estimated Glomerular Filt Rate 63 ml/min (>60); GFR (African American) 76 ML/MIN (>60)
== END ==
PROVIDERS: PCP Emergency Medicine; Visit Provider Physician Assistant
DX: R07.89 Other chest pain (principal)
CPT/HCPCS: 36415; 71270; 82565; 84520; Q9967

== ENCOUNTER → 2022-10-25 12:58 | Outpatient (CLI) | payer MEDICARE, OTHER, SELFPAY ==
--- NOTE | 2022-10-25 12:58 | MM_ITS ---
PROCEDURE INFORMATION: Exam: MG Bilateral Screening 3D Mammography Exam date and time: 10/25/2022 12:49 PM Age: 67 years old Clinical indication: Screening examination; Additional info: Screening mammogram TECHNIQUE: Imaging protocol: Bilateral Screening tomosynthesis and 2D mammography including computer-aided detection (CAD) when performed. COMPARISON: 1. MG MM DIG SCREENING MAMM BI W/CAD 09/22/2021 11:00 AM 2. MG MM DIG SCREENING MAMM BI W/CAD 09/01/2020 4:40 PM 3. MG MM DIG SCREENING MAMM BI W/CAD 07/02/2019 11:05 AM FINDINGS: MAMMOGRAPHY: Breast composition: The breasts are heterogeneously dense, which may obscure small masses. Mass: No suspicious masses. Architectural distortion: No suspicious distortion. Calcifications: No suspicious calcifications. Asymmetric density: None. Skin thickening: None. Axillary adenopathy: None. IMPRESSION: No mammographic evidence of malignancy. Annual screening is recommended unless otherwise clinically indicated. ASSESSMENT: BI-RADS Category 1: Negative
== END ==
PROVIDERS: PCP Emergency Medicine; Visit Provider Nurse Practitioner Obstetrics & Gynecology
DX: Z12.31 Encounter for screening mammogram for malignant neoplasm of breast (principal)
CPT/HCPCS: 77063; 77067

== ENCOUNTER → 2023-01-12 14:25 | Outpatient (CLI) | payer MEDICARE, OTHER, SELFPAY ==
[2023-01-12 12:28] LABS: Basophils % 0.6 % (0.1-2.0); Eosinophils # 0.2 K/mm3 (0.0-0.4); Eosinophils % 3.3 % (0.1-12.0); Hematocrit 37.8 % (37.0-47.0); Lymphocytes # 1.6 K/mm3 (0.7-4.5); Lymphocytes % 32.8 % (10-50); Mean Corpuscular HGB Conc 31.7 g/dL (31.8-35.4); Mean Corpuscular Volume 91.5 fl (81-99); Mean Platelet Volume 7.9 fl (7.4-10.4); Monocytes # 0.3 K/mm3 (0.1-1.0); Monocytes % 6.4 % (1.7-9.3); Neutrophils # 2.8 K/mm3 (1.8-7.8); Platelet Count 271 K/mm3 (142-424); Red Blood Count 4.14 M/mm3 (4.20-5.40); Red Cell Distribution Width 13.2 % (11.5-17.5)
[2023-01-12 12:41] LABS: Alanine Aminotransferase 20 U/L (12-78); Albumin Level 4.3 g/dl (3.5-5.0); Albumin/Globulin Ratio 1.2 (1.1-1.8); Alkaline Phosphatase 116 U/L (38-126); Anion Gap 12.6 mEq/L (5-15); Aspartate Amino Transferase 25 U/L (14-36); Bilirubin,Total 0.5 mg/dl (0.2-1.3); Blood Urea Nitrogen 16 mg/dl (7-17); Calcium 9.4 mg/dl (8.4-10.2); Carbon Dioxide 28 mmol/L (22.0-30.0); Chloride 106 mmol/L (98-107); Chol/HDL Ratio 2.6 (1-3.5); Cholesterol 168 mg/dl (140-200); Estimated Glomerular Filt Rate 72 ml/min (>60); GFR (African American) 87 ML/MIN (>60); Globulin 3.5 g/dL (1.3-3.2); Glucose 88 mg/dl (74-100); HDL Cholesterol 64 mg/dl (40-60); Potassium 4.6 mmoL/L (3.5-5.1); Sodium 142 mmol/L (136-145); Total Protein,Serum 7.8 g/dl (6.3-8.2); Triglycerides 88 mg/dl (30-150); VLDL Cholesterol 18 mg/dL (0-40)
[2023-01-12 12:52] LABS: Direct LDL Cholesterol 72.01 mg/dL (100-129)
[2023-01-12 12:56] LABS: Free T4 (Free Thyroxine) 1.03 ng/dl (0.78-2.19)
[2023-01-12 12:57] LABS: T4 (Thyroxine) 10.7 ug/dl (5.53-11.0)
[2023-01-12 13:10] LABS: Thyroid Stimulating Hormone 3.05 uIU/mL (0.465-4.68)
== END ==
PROVIDERS: PCP Emergency Medicine; Visit Provider Emergency Medicine
DX: N39.0 Urinary tract infection, site not specified (principal); I10 Essential (primary) hypertension; E55.9 Vitamin D deficiency, unspecified; B96.29 Other Escherichia coli [E. coli] as the cause of diseases classified elsewhere
CPT/HCPCS: 80053; 80061; 82306; 84436; 84439; 84443; 85025; 87086; 87088; 87186

== ENCOUNTER → 2023-01-26 16:35 | Outpatient (CLI) | payer MEDICARE, OTHER, SELFPAY ==
[2023-02-01 16:54] LABS: Calprotectin, Fecal 14 ug/g (0-120)
[2023-02-02 00:09] LABS: Fats, Neutral Normal (.); Fats, Total Normal (.)
[2023-02-07 22:20] LABS: Pancreatic Elastase, Fecal 77 (>200)
== END ==
PROVIDERS: PCP Emergency Medicine; Visit Provider Nurse Practitioner
DX: K58.9 Irritable bowel syndrome, unspecified (principal); R19.7 Diarrhea, unspecified; F41.9 Anxiety disorder, unspecified; R10.10 Upper abdominal pain, unspecified
CPT/HCPCS: 82656; 82705; 83993; 87205

== ENCOUNTER → 2023-04-03 09:35 | Outpatient (CLI) | payer MEDICARE, OTHER, SELFPAY ==
[2023-04-03 09:42] LABS: Microscopic, Urine URINE MICROSCOPIC (MICROSCOPIC)
[2023-04-03 09:57] LABS: Bilirubin,Urine Negative (Negative); Blood, Urine TRACE-I (Negative); Color,Urine YELLOW (Yellow); Glucose,Urine (UA) Negative (Negative); Ketones,Urine Negative (Negative); Leukocyte Esterase,Urine 2+ (Negative); Nitrate,Urine POSITIVE (Negative); Protein,Urine Negative (Negative); Specific Gravity, Urine >= 1.030 (1.005-1.030); Urobilinogen,Urine 0.2 EU/dl (0.2)
[2023-04-03 10:08] LABS: Appearance,Urine Slightly Cloudy (Clear)
[2023-04-03 10:10] LABS: Bacteria,Urine 3+ /lpf; Squamous Epithelial Cell,Urine Occasional #/hpf (0-5)
== END ==
PROVIDERS: PCP Emergency Medicine; Visit Provider Emergency Medicine
DX: R30.0 Dysuria (principal); R82.90 Unspecified abnormal findings in urine; R06.09 Other forms of dyspnea; B96.1 Klebsiella pneumoniae [K. pneumoniae] as the cause of diseases classified elsewhere
CPT/HCPCS: 81001; 87086; 94060; 94618; 94640; 94727; 94729

== ENCOUNTER → 2023-05-23 11:51 | Outpatient (CLI) | payer MEDICARE, OTHER, SELFPAY | LOC: LAB.DROPOF 11:52 | PROVIDERS: PCP Internal Medicine; Visit Provider Internal Medicine | DX: R82.90 Unspecified abnormal findings in urine (principal); B96.1 Klebsiella pneumoniae [K. pneumoniae] as the cause of diseases classified elsewhere | CPT/HCPCS: 87086 ==

== ENCOUNTER 2023-06-20 19:16 | Outpatient (CLI) | payer MEDICARE, OTHER, SELFPAY ==
[2023-06-20 21:22] LABS: Benzodiazepines Screen,Urine Negative ng/ml (<200)
[2023-06-20 21:23] LABS: Barbiturates Screen,Urine Negative ng/ml (<200)
[2023-06-20 21:24] LABS: Cannabinoid Screen,Urine Negative ng/ml (<50); Cocaine Screen,Urine Negative ng/ml (<300)
[2023-06-20 21:25] LABS: Methadone Screen,Urine Negative ng/ml (<300)
[2023-06-20 21:26] LABS: Opiate Screen,Urine Negative ng/ml (<300); Phencyclidine Screen,Urine Negative ng/ml (<25)
[2023-06-20 21:32] LABS: Amphetamine/Metha Screen,Urine Negative ng/ml (<1000)
[2023-06-24 15:12] LABS: Alprazolam Negative (Cutoff=100); Benzodiazepines Positive ng/mL (Cutoff=100); Clonazepam Positive (.); Clonazepam Confirm 543 ng/mL (Cutoff=100); Flurazepam Negative (Cutoff=100); Lorazepam Negative (Cutoff=100); Midazolam Negative (Cutoff=100); Temazepam Negative (Cutoff=100); Triazolam Negative (Cutoff=100)
== END 2023-06-20 23:59 ==
LOC: LAB.DROPOF 19:16
PROVIDERS: PCP Nurse Practitioner Family; Visit Provider Nurse Practitioner Family
DX: Z79.899 Other long term (current) drug therapy (principal)
CPT/HCPCS: 80307; 80346

== ENCOUNTER 2023-06-29 20:34 | Outpatient (CLI) | payer MEDICARE, OTHER, SELFPAY | END 2023-06-29 23:59 | LOC: LAB.DROPOF 20:35 | PROVIDERS: PCP Family Medicine; Visit Provider Family Medicine | DX: N39.0 Urinary tract infection, site not specified (principal); B96.29 Other Escherichia coli [E. coli] as the cause of diseases classified elsewhere | CPT/HCPCS: 87086 ==

== ENCOUNTER 2023-10-19 14:40 | Outpatient (CLI) | payer MEDICARE, OTHER, SELFPAY | END 2023-10-19 23:59 | disposition home or self-care (01) | LOC: LAB.DROPOF 10-22 14:42 | PROVIDERS: PCP Family Medicine; Visit Provider Family Medicine | DX: N39.0 Urinary tract infection, site not specified (principal); B96.29 Other Escherichia coli [E. coli] as the cause of diseases classified elsewhere | CPT/HCPCS: 87086; 87088; 87186 ==

== ENCOUNTER 2023-11-22 14:42 | Outpatient (CLI) | payer MEDICARE, OTHER, SELFPAY ==
--- NOTE | 2023-11-22 14:44 | MM_ITS ---
PROCEDURE INFORMATION: Exam: MG Bilateral Screening 3D Mammography Exam date and time: 11/22/2023 2:34 PM Age: 68 years old Clinical indication: Screening examination TECHNIQUE: Imaging protocol: Bilateral Screening tomosynthesis and 2D mammography including computer-aided detection (CAD) when performed. COMPARISON: 1. MG MM DIG SCREENING MAMM BI W/CAD 10/25/2022 12:49 PM 2. MG MM DIG SCREENING MAMM BI W/CAD 09/22/2021 11:00 AM FINDINGS: MAMMOGRAPHY: Breast composition: The breasts are heterogeneously dense, which may obscure small masses. Mass: None. Architectural distortion: None. Calcifications: No suspicious calcifications. Asymmetric density: None. Skin thickening: None. Axillary adenopathy: None. IMPRESSION: No mammographic evidence of malignancy. Annual screening is recommended unless otherwise clinically indicated. ASSESSMENT: BI-RADS Category 1: Negative
== END 2023-11-22 23:59 | disposition home or self-care (01) ==
LOC: RAD 14:44
PROVIDERS: PCP Family Medicine; Visit Provider Nurse Practitioner Obstetrics & Gynecology
DX: Z12.31 Encounter for screening mammogram for malignant neoplasm of breast (principal)
CPT/HCPCS: 77063; 77067

== ENCOUNTER 2023-12-25 11:26 | Outpatient (CLI) | payer MEDICARE, SELFPAY | END 2023-12-25 23:59 | disposition home or self-care (01) | LOC: LAB.DROPOF 12-26 11:27 | PROVIDERS: PCP Family Medicine; Visit Provider Family Medicine | DX: N39.0 Urinary tract infection, site not specified (principal); B95.2 Enterococcus as the cause of diseases classified elsewhere | CPT/HCPCS: 87086; 87088; 87186 ==

== ENCOUNTER 2024-02-28 19:40 | Outpatient (CLI) | payer MEDICARE, SELFPAY | END 2024-02-28 23:59 | disposition home or self-care (01) | LOC: LAB.DROPOF 19:45 | PROVIDERS: PCP Family Medicine; Visit Provider Family Medicine | DX: N39.0 Urinary tract infection, site not specified (principal) | CPT/HCPCS: 87086; 87088; 87186 ==

== ENCOUNTER 2024-03-10 20:23 | Emergency (ER) | payer MEDICARE, SELFPAY ==
[2024-03-10] VITALS (9 sets, daily range): BP systolic 174–217; BP diastolic 86–125; PULSE 71–156; RESP 12–18; TEMP 36.8; O2SAT 96–99; BMI 23.5
--- NOTE | 2024-03-10 20:38 | CT_ITS ---
PROCEDURE INFORMATION: Exam: CT Abdomen And Pelvis With Contrast Exam date and time: 03/10/2024 9:59 PM Age: 69 years old Clinical indication: Abdominal pain; Additional info: Suprapubic pain TECHNIQUE: Imaging protocol: Computed tomography of the abdomen and pelvis with contrast. Radiation optimization: All CT scans at this facility use at least one of these dose optimization techniques: automated exposure control; mA and/or kV adjustment per patient size (includes targeted exams where dose is matched to clinical indication); or iterative reconstruction. 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 This is unchanged. Liver: Scattered liver granulomas identified. Otherwise liver normal. Gallbladder and biliary ducts: The gallbladder is normal. There is no evidence of biliary ductal dilation. Pancreas: The pancreas is normal. Spleen: Splenic granulomas noted. Otherwise spleen normal. Adrenal glands: The adrenal glands appear within normal limits. Kidneys and ureters: The kidneys are normal. Stomach and bowel: Unremarkable. No obstruction. No mucosal thickening. Appendix: No evidence of appendicitis. Intraperitoneal space: No free air. No evidence for focal fluid collection or ascites. No evidence for omental thickening. Vasculature: Unremarkable. No abdominal aortic aneurysm. Lymph nodes: Unremarkable. No pathologically enlarged lymph nodes are identified. Urinary bladder: The bladder appears within normal limits. No wall thickening. Reproductive: The uterus and adnexal structures appear normal. Bones/joints: Unremarkable. No acute fracture. Soft tissues: The visualize subcutaneous soft tissues and abdominal wall and flank wall appear unremarkable. IMPRESSION: 1. 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 This is unchanged. 2. No acute abnormalities are identified.
--- NOTE | 2024-03-10 20:42 | ECG_ITS ---
APPROVED REPORT Exam: Resting ECG HR:94 bpm ECG Measurements Heart Rate 94 AXES KS 160 P 67 QRSd 141 QRS 92 QT 369 T 13 QTc 421 Conclusion Sinus rhythm Right bundle branch block Electronically signed by : STAN ANDERS, 03/10/2024 21:01:38
--- NOTE | 2024-03-10 20:44 | ED_ITS ---
Discharge Plan Disposition Patient Disposition: Home, Self-Care Prescriptions Prescriptions: New cefdinir 300 mg capsule 300 mg PO BID 7 Days Qty: 14 0RF No Action Premarin 0.625 mg/gram cream 0.625 mg vaginal .twice weekly Qty: 30 2RF Rx Instructions: blueberry sized amount twice weekly clonazepam 0.5 mg tablet 0.5 mg PO DAILY Qty: 14 0RF aspirin [Angus Low Dose Aspirin] 81 mg tablet,delayed release (DR/EC) 81 mg PO DAILY atorvastatin 20 mg tablet See Rx Instructions .ROUTE .COMPLEX Qty: 90 5RF Dose Instruction: TAKE ONE TABLET BY MOUTH EVERY DAY Rx Instructions: TAKE ONE TABLET BY MOUTH EVERY DAY Creon 36,000-114,000- 180,000 unit capsule,delayed release(DR/EC) 1 cap PO QID 90 Days Qty: 360 4RF Rx Instructions: administer with meals and/or snacks losartan 50 mg tablet See Rx Instructions .ROUTE .COMPLEX Qty: 90 3RF Dose Instruction: TAKE ONE TABLET BY MOUTH EVERY DAY Rx Instructions: TAKE ONE TABLET BY MOUTH EVERY DAY dicyclomine 20 mg tablet See Rx Instructions .ROUTE .COMPLEX Qty: 90 5RF Dose Instruction: TAKE ONE TABLET BY MOUTH THREE TIMES DAILY Rx Instructions: TAKE ONE TABLET BY MOUTH THREE TIMES DAILY darifenacin 15 mg tablet extended release 24 hr See Rx Instructions .ROUTE .COMPLEX Qty: 30 5RF Dose Instruction: TAKE ONE TABLET BY MOUTH EVERY DAY Rx Instructions: TAKE ONE TABLET BY MOUTH EVERY DAY bisoprolol fumarate 5 mg tablet See Rx Instructions .ROUTE .COMPLEX Qty: 90 3RF Dose Instruction: TAKE ONE TABLET BY MOUTH EVERY DAY Rx Instructions: TAKE ONE TABLET BY MOUTH EVERY DAY Vraylar 1.5 mg capsule See Rx Instructions .ROUTE .COMPLEX Qty: 30 2RF Dose Instruction: TAKE ONE CAPSULE BY MOUTH EVERY DAY Rx Instructions: TAKE ONE CAPSULE BY MOUTH EVERY DAY amitriptyline 10 mg tablet 20 mg PO HS Qty: 60 2RF nitrofurantoin monohyd/m-cryst [Macrobid] 100 mg capsule 100 mg PO Q12H 10 Days Qty: 20 0RF Rx Instructions: must administer with a meal/food ondansetron 4 mg tablet,disintegrating 4 mg PO Q6H PRN (Reason: nausea and vomiting) Qty: 30 1RF Referrals Follow up/Referrals: Andrés,Nena, ADMINISTRATIVE SECRETARY [Primary Care Provider] - See instructions Activity Restrictions/Add. Instructions Additional Instructions/Restrictions: You were evaluated in the ER and are appropriate for discharge at this time. Continue taking all home medications as prescribed. Specifically, the dicyclomine that has been previously prescribed to you is for cramping and abdominal pain. Take the newly prescribed antibiotic as directed, do not skip doses, do not stop taking this early. Continue taking your blood pressure medications and make an appointment with your primary care doctor as soon as possible to reevaluate your blood pressure. They should also recheck your urine for infection. Also follow-up with GI for reevaluation. Return to the ER with new, worsening, or otherwise concerning symptoms Clinical Impressions Clinical Impression: HTN (hypertension), Abdominal pain, UTI (urinary tract infection) Instructions Patient Instructions: DI for Acute Abdominal Pain Print Language Print Language: Qatari Discharge ED Provider: Parviz Machado General Adult HPI <Praviz Machado MD - Last Filed: 03/10/24 23:07> General Chief complaint: Abdominal Pain Stated complaint: abd pain Time Seen by Provider: 03/10/24 20:29 History of Present Illness HPI narrative: Please note that above description of symptoms, in this electronic medical record under categorization of recalled from ER triage doctor by RN are reflective of an initial nursing assessment, however, is not reflective of my full history and physical exam that was personally taken and clarified. Consequentially, this preceding description of symptoms, which may include the patient's categorized chief complaint in the EMR, do not reflect my personal clinical impression, and the ultimate description of history of present illness and patient stated complaints should be deferred to this section of the note. Unless stated otherwise or congruent with this section of the note, additional signs, symptoms, or incongruence should be interpreted as inaccurate with my clinical impression. Related Data Home Medications ?Medication ?Instructions ?Recorded ?Confirmed aspirin 81 mg tablet,delayed 81 mg PO DAILY 10/25/22 03/03/24 release (Angus Low Dose Aspirin) Previous Rx's ?Medication ?Instructions ?Recorded atorvastatin 20 mg tablet See Rx Instructions .Route 04/16/23 .COMPLEX #90 tabs fpnnod-gkbduyvt-sohbyih 1 cap PO QID GE 3 months #360 caps 06/12/23 36,000-114,000-180,000 unit capsule,delay rel (Creon) losartan 50 mg tablet See Rx Instructions .Route 09/17/23 .COMPLEX #90 tabs dicyclomine 20 mg tablet See Rx Instructions .Route 11/02/23 .COMPLEX #90 tabs darifenacin 15 mg tablet,extended See Rx Instructions .Route 11/03/23 release 24 hr .COMPLEX #30 tabs bisoprolol fumarate 5 mg tablet See Rx Instructions .Route 11/13/23 .COMPLEX #90 tabs conjugated estrogens 0.625 mg/gram 0.625 mg vaginal .twice weekly #30 11/22/23 vaginal cream (Premarin) grams cariprazine 1.5 mg capsule See Rx Instructions .Route 01/11/24 (Vraylar) .COMPLEX #30 caps amitriptyline 10 mg tablet 20 mg (2 x 10 mg) PO HS #60 tabs 01/21/24 nitrofurantoin 100 mg PO Q12H 10 days #20 caps 02/28/24 monohydrate/macrocrystals 100 mg capsule (Macrobid) clonazepam 0.5 mg tablet 0.5 mg PO DAILY #14 tabs 03/03/24 ondansetron 4 mg disintegrating 4 mg PO Q6H PRN nausea and 03/05/24 tablet vomiting #30 tabs cefdinir 300 mg capsule 300 mg PO BID 7 days #14 caps 03/10/24 Allergies Allergy/AdvReac Type Severity Reaction Status Date / Time clindamycin Allergy Verified 03/03/24 09:06 [facility] <Parviz Machado MD - Last Filed: 03/10/24 23:07> [facility] Disclaimer: The information contained in this section may have been updated after the patient was seen, as this information can be updated by other users. 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 Dyspnea HTN (hypertension) Right bundle branch block Abnormal electrocardiography Chest pain Surgical History History of appendectomy Family History Other Diabetes Social History Smoking Status: Never smoker alcohol intake: never substance use type: denies use current occupational status: retired Travel in the last 8 weeks: None household members: family and children housing: house caffeine: Yes Other Medical History Have you received the Flu Vaccine for this season: No Have you received the Pneumonia Vaccine: No <Parviz Machado MD - Last Filed: 03/10/24 23:07> ROS Obtained: Yes All systems reviewed & no additional complaints except as documented Physical Exam <Parviz Machado MD - Last Filed: 03/10/24 23:07> General General appearance: alert Head Head exam: atraumatic and normocephalic Eye Eye exam: Present normal appearance, PERRL and EOMI Neck Neck exam: Present normal inspection, full ROM and trachea midline Respiratory Respiratory exam: Absent respiratory distress, wheezes, stridor, accessory muscle use or prolonged expiratory phase Cardiovascular Cardiovascular exam: Present normal rhythm, tachycardia and other (Pulses equal symmetric in upper and lower extremities) Abdominal Exam Abdominal exam: Present soft; Absent distention, tenderness, guarding, rebound, rigidity or pulsatile mass Extremities Exam Extremities exam: Absent edema Neurological Exam Neurological exam: Present alert, oriented X3 and CN II-XII intact; Absent motor sensory deficit Skin Skin exam: Present warm and dry; Absent diaphoresis or erythema Medical Decision Making <Parviz Machado MD - Last Filed: 03/10/24 23:07> Medical Records Medical records reviewed: Yes I reviewed the patient's medical records. Screening: Per USPSTF and CDC recommendations, given the prevalence of disease in our region, it is our hospital?s policy to screen for HIV and viral Hepatitis for all patients aged 18 and over and those with ongoing risk factors. Charlie Inquiry Pt receiving controlled substance: No Charlie was queried for this patient: No Vital Signs: 03/10/24 20:37 03/10/24 20:40 03/10/24 21:00 Temperature 98.2 F Temperature Source Oral Pulse Rate 78 152 H Pulse Rate [Left Radial] 156 H Respiratory Rate 18 Blood Pressure 209/121 H 197/117 H Blood Pressure [Right Arm] 174/125 H Blood Pressure Mean [Right Arm] 141 Blood Pressure Source [Right Arm] Automatic Cuff Blood Pressure Position [Right Arm] Sitting 02 Sat by Pulse Oximetry 97 97 97 Oxygen Delivery Method Room Air 03/10/24 21:31 03/10/24 22:06 03/10/24 22:31 Temperature Temperature Source Pulse Rate 71 86 72 Pulse Rate [Left Radial] Respiratory Rate 15 14 Blood Pressure 217/110 H 194/86 H 208/113 H Blood Pressure [Right Arm] Blood Pressure Mean [Right Arm] Blood Pressure Source [Right Arm] Blood Pressure Position [Right Arm] 02 Sat by Pulse Oximetry 98 96 97 Oxygen Delivery Method 03/10/24 23:00 03/10/24 23:23 Temperature Temperature Source Pulse Rate 80 Pulse Rate [Left Radial] Respiratory Rate 12 Blood Pressure 217/94 H 217/94 H Blood Pressure [Right Arm] Blood Pressure Mean [Right Arm] Blood Pressure Source [Right Arm] Blood Pressure Position [Right Arm] 02 Sat by Pulse Oximetry 99 Oxygen Delivery Method Lab Data Lab Results 03/10/24 20:55: Urine Color Yellow, Urine Appearance Clear, Urine pH 6.0, Ur Specific [place] 1.025, Urine Protein Trace, Urine Glucose (UA) Negative, Urine Ketones Negative, Urine Blood 1+ A, Urine Nitrate Positive, Urine Bilirubin Negative, Urine Urobilinogen 0.2, Ur Leukocyte Esterase 1+ A, Urine RBC None, Urine WBC 10-20, Ur Squamous Epith Cells 3-5, Urine Bacteria 3+, Urine Opiates Screen Negative, Urine Methadone Screen Negative, Ur Barbituates Screen Negative, Ur Phencyclidine Scrn Negative, Ur Amphetamines Screen Negative, U Benzodiazepines Scrn Negative, Urine Cocaine Screen Negative, U Marijuana (THC) Screen Negative 03/10/24 21:10: WBC 7.5, RBC 4.89, Hgb 14.7, Hct 43.2, MCV 88.4, MCH 30.1, MCHC 34.1, RDW 13.2, Plt Count 263, MPV 7.3 L, Neut % (Auto) 70.0, Lymph % (Auto) 21.7, [place] % (Auto) 6.9, Eos % (Auto) 0.3, Baso % (Auto) 1.1, Neut # (Auto) 5.3, Lymph # (Auto) 1.6, [place] # (Auto) 0.5, Eos # (Auto) 0.0, Baso # (Auto) 0.1, PT 10.8, INR 0.96, APTT 22.0 L, Sodium 139, Potassium 3.6, Chloride 100, Carbon Dioxide 27, Anion Gap 15.6 H, BUN 12, Creatinine 1.20 H, Estimated Creat Clear 49, Estimated GFR 45 L, Est GFR ( Amer) 54 L, Glucose 139 H, Lactate 1.3, Calcium 9.8, Total Bilirubin 0.8, AST 40 H, ALT 38, Alkaline Phosphatase 138 H, Troponin I < 0.01, Total Protein 9.1 H, Albumin 4.9, Globulin 4.2 H, Albumin/Globulin Ratio 1.2, Lipase 88 03/10/24 21:10 03/10/24 21:10 Orders (Tests/Meds): ED MEDICATIONS Generic Name Dose Route Start Last Admin Trade Name Freq PRN Reason Stop Dose Admin Sodium Chloride 10 ml 03/10/24 22:03 03/10/24 22:04 Sodium Chloride 0.9% 10ml Syr (Rad Only) IV 04/09/24 22:02 10 ml NEEDED PRN Administration Maintain IV Site Discontinued Medications Generic Name Dose Route Start Last Admin Trade Name Freq PRN Reason Stop Dose Admin Acetaminophen 1,000 mg 03/10/24 20:37 03/10/24 21:02 Acetaminophen 500mg Tab PO 03/10/24 20:38 1,000 mg ONCE ONE Administration Sodium Chloride 1,000 mls @ 999 mls/hr 03/10/24 20:37 03/10/24 21:03 Sod Chlor 0.9% 1000ml Bag IV 03/10/24 21:37 999 mls/hr .Q1H1M ONE Administration Iopamidol 75 ml 03/10/24 22:03 03/10/24 22:04 Iopamidol-370 (76%);100ml Bottle IV 03/10/24 22:04 75 ml ONCE ONE Administration Ketorolac Tromethamine 15 mg 03/10/24 20:37 03/10/24 21:03 Ketorolac 30mg/Ml Vial IV 03/10/24 20:38 15 mg ONCE ONE Administration Labetalol HCl 10 mg 03/10/24 23:16 03/10/24 23:23 Labetalol 20mg/4ml Syringe IV 03/10/24 23:17 10 mg ONCE ONE Administration ORDERS Category Date Time Status CT abdomen pelvis w con Stat Cat Scan 03/10/24 20:38 Completed Complete Blood Count Auto Diff Stat Lab 03/10/24 21:10 Completed Comprehensive Metabolic Panel Stat Lab 03/10/24 21:10 Completed HIV (1&2) Antibody Rapid Stat Lab 03/10/24 21:10 Received Hep C Ab with Reflex to RNA Stat Lab 03/10/24 21:10 Received Lactic Acid Stat Lab 03/10/24 21:10 Completed Lipase Stat Lab 03/10/24 21:10 Completed PT INR [Prothrombin Time INR] Stat Lab 03/10/24 21:10 Completed PTT [Activated Partial Thrombo Time] Stat Lab 03/10/24 21:10 Completed Troponin I Q3H Lab 03/11/24 02:45 Ordered Troponin I Stat Lab 03/10/24 21:10 Completed UDS [Drug Screen,Urine] Stat Lab 03/10/24 20:55 Completed Urinalysis and Microscopic Stat Lab 03/10/24 20:55 Completed Blood Culture Stat Micro 03/10/24 20:41 Ordered Urine Culture Stat Micro 03/10/24 20:55 Received Medical Decision Narrative: 69-year-old female history of hypertension, hyperlipidemia, depression, IBS, pancreatic insufficiency, presenting with abdominal pain. Patient states that she thinks it was possibly due to a virus. States that multiple of her grandchildren had viral syndromes over the past week, thought it was related. She never had any vomiting or diarrhea. No fevers or chills, but was seen by family practitioner, diagnosed with urinary tract infection and given Macrobid and Zofran. Patient states that last bowel movement was 5 days prior to this, still passing gas. Abnormal for her. She usually has a bowel movement every single day. Has not taken any stool softeners or laxatives to aid with this problem. It is mild, constant, does not radiate. No other associated symptoms. History was obtained via conversation with patient. On arrival, patient hemodynamically stable, alert, oriented x4, appropriate, GCS 15, moving all extremities spontaneously, pupils equal and reactive to light. Full physical exam performed and significant for anxious appearing female who is in no acute distress. She is hypertensive, tachycardic, otherwise normal cardiac exam. Constantly rubbing her gums and stating she has dry mouth. Abdomen is soft, nontender, nondistended. No overlying skin changes. Unremarkable exam overall. Differential includes constipation, diverticulitis, nephrolithiasis, pyelonephritis, cystitis, pancreatitis, fecal impaction, less likely to be aortic pathology, SBO, cholecystitis, among others. Patient placed on continuous cardiac monitoring and continuous pulse ox with initial blood pressure 174/125, heart rate 86, saturation 97% on room air. Independent interpretation of EKG shows sinus rhythm 94 beats a minute right bundle branch block morphology with CO 160, QRS 141, QTc 421. Borderline rightward axis. Patient was given Toradol and normal saline bolus for symptomatic management and correction of underlying abnormalities. Workup independently interpreted and significant for nonactionable CBC. Patient with mild JEB creatinine 1.2, given p.o. fluids for this. On independent interpretation of imaging, no acute intra-abdominal abnormality, possible proctitis versus rectosigmoid inflammation. Prior to final read, care handed off to oncoming physician. Pulp Bleacher disclaimer Much of this encounter note is an electronic performance improvement analyst spoken language to printed text. Electronic performance improvement analyst of the spoken language may permit errors. Although I have reviewed the note, some errors may still exist. <Dinesh Vieira MD - Last Filed: 03/10/24 23:44> Vital Signs: 03/10/24 20:37 03/10/24 20:40 03/10/24 21:00 Temperature 98.2 F Temperature Source Oral Pulse Rate 78 152 H Pulse Rate [Left Radial] 156 H Respiratory Rate 18 Blood Pressure 209/121 H 197/117 H Blood Pressure [Right Arm] 174/125 H Blood Pressure Mean [Right Arm] 141 Blood Pressure Source [Right Arm] Automatic Cuff Blood Pressure Position [Right Arm] Sitting 02 Sat by Pulse Oximetry 97 97 97 Oxygen Delivery Method Room Air 03/10/24 21:31 03/10/24 22:06 03/10/24 22:31 Temperature Temperature Source Pulse Rate 71 86 72 Pulse Rate [Left Radial] Respiratory Rate 15 14 Blood Pressure 217/110 H 194/86 H 208/113 H Blood Pressure [Right Arm] Blood Pressure Mean [Right Arm] Blood Pressure Source [Right Arm] Blood Pressure Position [Right Arm] 02 Sat by Pulse Oximetry 98 96 97 Oxygen Delivery Method 03/10/24 23:00 03/10/24 23:23 Temperature Temperature Source Pulse Rate 80 Pulse Rate [Left Radial] Respiratory Rate 12 Blood Pressure 217/94 H 217/94 H Blood Pressure [Right Arm] Blood Pressure Mean [Right Arm] Blood Pressure Source [Right Arm] Blood Pressure Position [Right Arm] 02 Sat by Pulse Oximetry 99 Oxygen Delivery Method Lab Data Lab Results 03/10/24 20:55: Urine Color Yellow, Urine Appearance Clear, Urine pH 6.0, Ur Specific [place] 1.025, Urine Protein Trace, Urine Glucose (UA) Negative, Urine Ketones Negative, Urine Blood 1+ A, Urine Nitrate Positive, Urine Bilirubin Negative, Urine Urobilinogen 0.2, Ur Leukocyte Esterase 1+ A, Urine RBC None, Urine WBC 10-20, Ur Squamous Epith Cells 3-5, Urine Bacteria 3+, Urine Opiates Screen Negative, Urine Methadone Screen Negative, Ur Barbituates Screen Negative, Ur Phencyclidine Scrn Negative, Ur Amphetamines Screen Negative, U Benzodiazepines Scrn Negative, Urine Cocaine Screen Negative, U Marijuana (THC) Screen Negative 03/10/24 21:10: WBC 7.5, RBC 4.89, Hgb 14.7, Hct 43.2, MCV 88.4, MCH 30.1, MCHC 34.1, RDW 13.2, Plt Count 263, MPV 7.3 L, Neut % (Auto) 70.0, Lymph % (Auto) 21.7, [place] % (Auto) 6.9, Eos % (Auto) 0.3, Baso % (Auto) 1.1, Neut # (Auto) 5.3, Lymph # (Auto) 1.6, [place] # (Auto) 0.5, Eos # (Auto) 0.0, Baso # (Auto) 0.1, PT 10.8, INR 0.96, APTT 22.0 L, Sodium 139, Potassium 3.6, Chloride 100, Carbon Dioxide 27, Anion Gap 15.6 H, BUN 12, Creatinine 1.20 H, Estimated Creat Clear 49, Estimated GFR 45 L, Est GFR ( Amer) 54 L, Glucose 139 H, Lactate 1.3, Calcium 9.8, Total Bilirubin 0.8, AST 40 H, ALT 38, Alkaline Phosphatase 138 H, Troponin I < 0.01, Total Protein 9.1 H, Albumin 4.9, Globulin 4.2 H, Albumin/Globulin Ratio 1.2, Lipase 88 Orders (Tests/Meds): ED MEDICATIONS Generic Name Dose Route Start Last Admin Trade Name Freq PRN Reason Stop Dose Admin Sodium Chloride 10 ml 03/10/24 22:03 03/10/24 22:04 Sodium Chloride 0.9% 10ml Syr (Rad Only) IV 04/09/24 22:02 10 ml NEEDED PRN Administration Maintain IV Site Discontinued Medications Generic Name Dose Route Start Last Admin Trade Name Gloria PRN Reason Stop Dose Admin Acetaminophen 1,000 mg 03/10/24 20:37 03/10/24 21:02 Acetaminophen 500mg Tab PO 03/10/24 20:38 1,000 mg ONCE ONE Administration Sodium Chloride 1,000 mls @ 999 mls/hr 03/10/24 20:37 03/10/24 21:03 Sod Chlor 0.9% 1000ml Bag IV 03/10/24 21:37 999 mls/hr .Q1H1M ONE Administration Iopamidol 75 ml 03/10/24 22:03 03/10/24 22:04 Iopamidol-370 (76%);100ml Bottle IV 03/10/24 22:04 75 ml ONCE ONE Administration Ketorolac Tromethamine 15 mg 03/10/24 20:37 03/10/24 21:03 Ketorolac 30mg/Ml Vial IV 03/10/24 20:38 15 mg ONCE ONE Administration Labetalol HCl 10 mg 03/10/24 23:16 03/10/24 23:23 Labetalol 20mg/4ml Syringe IV 03/10/24 23:17 10 mg ONCE ONE Administration ORDERS Category Date Time Status CT abdomen pelvis w con Stat Cat Scan 03/10/24 20:38 Completed Complete Blood Count Auto Diff Stat Lab 03/10/24 21:10 Completed Comprehensive Metabolic Panel Stat Lab 03/10/24 21:10 Completed HIV (1&2) Antibody Rapid Stat Lab 03/10/24 21:10 Received Hep C Ab with Reflex to RNA Stat Lab 03/10/24 21:10 Received Lactic Acid Stat Lab 03/10/24 21:10 Completed Lipase Stat Lab 03/10/24 21:10 Completed PT INR [Prothrombin Time INR] Stat Lab 03/10/24 21:10 Completed PTT [Activated Partial Thrombo Time] Stat Lab 03/10/24 21:10 Completed Troponin I Q3H Lab 03/11/24 02:45 Ordered Troponin I Stat Lab 03/10/24 21:10 Completed UDS [Drug Screen,Urine] Stat Lab 03/10/24 20:55 Completed Urinalysis and Microscopic Stat Lab 03/10/24 20:55 Completed Blood Culture Stat Micro 03/10/24 20:41 Ordered Urine Culture Stat Micro 03/10/24 20:55 Received Medical Decision Narrative: 69-year-old female history of hypertension, hyperlipidemia, depression, IBS, pancreatic insufficiency, presenting with abdominal pain. Patient states that she thinks it was possibly due to a virus. States that multiple of her grandchildren had viral syndromes over the past week, thought it was related. She never had any vomiting or diarrhea. No fevers or chills, but was seen by family practitioner, diagnosed with urinary tract infection and given Macrobid and Zofran. Patient states that last bowel movement was 5 days prior to this, still passing gas. Abnormal for her. She usually has a bowel movement every single day. Has not taken any stool softeners or laxatives to aid with this problem. It is mild, constant, does not radiate. No other associated symptoms. History was obtained via conversation with patient. On arrival, patient hemodynamically stable, alert, oriented x4, appropriate, GCS 15, moving all extremities spontaneously, pupils equal and reactive to light. Full physical exam performed and significant for anxious appearing female who is in no acute distress. She is hypertensive, tachycardic, otherwise normal cardiac exam. Constantly rubbing her gums and stating she has dry mouth. Abdomen is soft, nontender, nondistended. No overlying skin changes. Unremarkable exam overall. Differential includes constipation, diverticulitis, nephrolithiasis, pyelonephritis, cystitis, pancreatitis, fecal impaction, less likely to be aortic pathology, SBO, cholecystitis, among others. Patient placed on continuous cardiac monitoring and continuous pulse ox with initial blood pressure 174/125, heart rate 86, saturation 97% on room air. Independent interpretation of EKG shows sinus rhythm 94 beats a minute right bundle branch block morphology with CO 160, QRS 141, QTc 421. Borderline rightward axis. Patient was given Toradol and normal saline bolus for symptomatic management and correction of underlying abnormalities. Workup independently interpreted and significant for nonactionable CBC. Patient with mild JEB creatinine 1.2, given p.o. fluids for this. On independent interpretation of imaging, no acute intra-abdominal abnormality, possible proctitis versus rectosigmoid inflammation. Prior to final read, care handed off to oncoming physician. Pulp Bleacher disclaimer Much of this encounter note is an electronic performance improvement analyst spoken language to printed text. Electronic performance improvement analyst of the spoken language may permit errors. Although I have reviewed the note, some errors may still exist. Vieira: Upon my assumption of care patient is stable. I agree with the assessment and plan from Dr. Machado. Patient has been persistently hypertensive in the ED so she received a dose of labetalol which offered moderate but appropriate response. Since she is asymptomatic from her hypertension I believe outpatient follow-up for this is appropriate. Review of urinalysis demonstrates patient has persistent urinary tract infection despite having been on nitrofurantoin for over 10 days. I reviewed most recent urine culture which demonstrated patient's urine should have been susceptible to the nitrofurantoin she was prescribed, however patient explained she was not initially taking this medication appropriately. This makes me concerned that her current urinalysis is still demonstrating active infection. Patient is taking her last dose of nitrofurantoin tonight, so I prescribed cefdinir for outpatient management of ongoing UTI. She was given instructions on antibiotic use. CT abdomen pelvis personally interpreted did not demonstrate acute intra- abdominal abnormality, I believe the low pelvic inflammation is likely related to patient's persistent urinary tract infection. See radiology read for final interpretation. Incidental findings on CT are stable from prior Patient is tolerating oral intake and is ambulatory in the ER. Her blood pressure has improved, cefdinir prescribed, she is appropriate for outpatient follow-up at this time. I instructed her to continue taking dicyclomine which has been already prescribed to her and to follow-up closely with her GI team as well as primary care doctor for reevaluation of her ongoing abdominal symptoms, blood pressure, and urinary tract infection. Patient was given instructions on symptomatic management, follow up instructions, and return precautions for the emergency department. Patient indicated understanding and was discharged in stable condition. Critical Care <Parviz Machado MD - Last Filed: 03/10/24 23:07> Critical Care Time Critical Care Time: No
[2024-03-10 21:00] LABS: Microscopic, Urine URINE MICROSCOPIC (MICROSCOPIC)
[2024-03-10] MEDS: ACETAMINOPHEN 500MG TAB 1000 MG PO (21:02)
[2024-03-10] MEDS: KETOROLAC 30MG/ML VIAL 15 MG IV (21:03)
[2024-03-10] MEDS: 0.9 % SODIUM CHLORIDE 1000ML 1,000 ML 999 ML IV (21:03)
[2024-03-10 21:14] LABS: Appearance,Urine CLEAR (Clear); Bilirubin,Urine Negative (Negative); Blood, Urine 1+ (Negative); Color,Urine YELLOW (Yellow); Glucose,Urine (UA) Negative (Negative); Ketones,Urine Negative (Negative); Leukocyte Esterase,Urine 1+ (Negative); Nitrate,Urine POSITIVE (Negative); Protein,Urine TRACE (Negative); Specific Gravity, Urine 1.025 (1.005-1.030); Urobilinogen,Urine 0.2 EU/dl (0.2)
[2024-03-10 21:24] LABS: Amphetamine/Metha Screen,Urine Negative ng/ml (<1000); Barbiturates Screen,Urine Negative ng/ml (<200)
[2024-03-10 21:25] LABS: Benzodiazepines Screen,Urine Negative ng/ml (<200)
[2024-03-10 21:26] LABS: Cannabinoid Screen,Urine Negative ng/ml (<50); Cocaine Screen,Urine Negative ng/ml (<300)
[2024-03-10 21:27] LABS: Methadone Screen,Urine Negative ng/ml (<300)
[2024-03-10 21:28] LABS: Opiate Screen,Urine Negative ng/ml (<300); Phencyclidine Screen,Urine Negative ng/ml (<25)
[2024-03-10 21:32] LABS: Basophils # 0.1 K/mm3 (0-0.2); Basophils % 1.1 % (0.1-2.0); Eosinophils % 0.3 % (0.1-12.0); Hematocrit 43.2 % (37.0-47.0); Hemoglobin 14.7 g/dL (12.2-16.2); Lymphocytes # 1.6 K/mm3 (0.7-4.5); Lymphocytes % 21.7 % (10-50); Mean Corpuscular HGB Conc 34.1 g/dL (31.8-35.4); Mean Corpuscular Hemoglobin 30.1 pg (27.0-31.2); Mean Corpuscular Volume 88.4 fl (81-99); Mean Platelet Volume 7.3 fl (7.4-10.4); Monocytes # 0.5 K/mm3 (0.1-1.0); Monocytes % 6.9 % (1.7-9.3); Neutrophils # 5.3 K/mm3 (1.8-7.8); Platelet Count 263 K/mm3 (142-424); Red Blood Count 4.89 M/mm3 (4.20-5.40); Red Cell Distribution Width 13.2 % (11.5-17.5); White Blood Count 7.5 K/mm3 (4.8-10.8)
[2024-03-10 21:43] LABS: Albumin Level 4.9 g/dl (3.5-5.0); Chloride 100 mmol/L (98-107); Potassium 3.6 mmoL/L (3.5-5.1); Sodium 139 mmol/L (136-145)
[2024-03-10 21:46] LABS: Bacteria,Urine 3+ /lpf
[2024-03-10 21:46] LABS: Alanine Aminotransferase 38 U/L (12-78); Albumin/Globulin Ratio 1.2 (1.1-1.8); Alkaline Phosphatase 138 U/L (38-126); Anion Gap 15.6 mEq/L (5-15); Aspartate Amino Transferase 40 U/L (14-36); Bilirubin,Total 0.8 mg/dl (0.2-1.3); Blood Urea Nitrogen 12 mg/dl (7-17); Calcium 9.8 mg/dl (8.4-10.2); Carbon Dioxide 27 mmol/L (22.0-30.0); Creatinine Clearance Estimated 49 mL/min (50-200); Estimated Glomerular Filt Rate 45 ml/min (>60); GFR (African American) 54 ML/MIN (>60); Globulin 4.2 g/dL (1.3-3.2); Glucose 139 mg/dl (74-100); Lactic Acid 1.3 mmol/L (0.7-2.1); Lipase 88 U/L (23-300); Total Protein,Serum 9.1 g/dl (6.3-8.2)
--- NOTE | 2024-03-10 21:52 | PC.NURSE ---
Pt to ct scan via wheelchair
[2024-03-10 21:55] LABS: INR 0.96 (0.9-1.1); Prothrombin Time 10.8 seconds (10.1-12.5)
[2024-03-10 22:00] LABS: Troponin I < 0.01 ng/ml (0.00-0.034)
[2024-03-10] MEDS: IOPAMIDOL-370 (76%);100ML BOTTLE 75 ML IV (22:04)
[2024-03-10] MEDS: SODIUM CHLORIDE 0.9% 10ML SYR (RAD ONLY) 10 ML IV (22:04)
--- NOTE | 2024-03-10 22:04 | PC.NURSE ---
Pt back from CT
[2024-03-10] MEDS: LABETALOL 20MG/4ML SYRINGE 10 MG IV (23:23)
--- NOTE | 2024-03-10 23:28 | PC.NURSE ---
Pt reports having pain. MD aware. No new orders at this time.
--- NOTE | 2024-03-12 08:19 | PC.NURSE ---
discussed urine culture with cefdinir, ntd
[2024-03-12 09:15] LABS: HCV Ab Non Reactive (Non Reactive)
[2024-03-12 10:14] LABS: HIV Screen 4th Generation wRfx Non Reactive (Non Reactive)
== END 2024-03-11 00:01 | disposition home or self-care (01) ==
PROVIDERS: Emergency Provider Emergency Medicine; PCP Family Medicine
DX: R10.9 Unspecified abdominal pain (principal); I10 Essential (primary) hypertension; N39.0 Urinary tract infection, site not specified
CPT/HCPCS: 74177; 80053; 80307; 81001; 83605; 83690; 84484; 85025; 85610; 85730; 86703; 86803; 87040; 87086; 87088; 87186; 87389; 93005; 96361; 96374; 96375; 99285; G0432; J1885; J7030; Q9967

== ENCOUNTER 2024-03-17 09:52 | Outpatient (CLI) | payer MEDICARE, SELFPAY ==
[2024-03-17 15:37] LABS: Microscopic, Urine URINE MICROSCOPIC (MICROSCOPIC)
[2024-03-17 16:16] LABS: Appearance,Urine CLEAR (Clear); Bilirubin,Urine Negative (Negative); Blood, Urine TRACE-I (Negative); Color,Urine YELLOW (Yellow); Glucose,Urine (UA) Negative (Negative); Ketones,Urine Negative (Negative); Leukocyte Esterase,Urine Negative (Negative); Nitrate,Urine Negative (Negative); Protein,Urine Negative (Negative); Specific Gravity, Urine 1.015 (1.005-1.030); Urobilinogen,Urine 0.2 EU/dl (0.2)
[2024-03-17 17:13] LABS: Bacteria,Urine 1+ /lpf
== END 2024-03-17 23:59 | disposition home or self-care (01) ==
LOC: LAB.DROPOF 03-18 09:53
PROVIDERS: PCP Urology; Visit Provider Urology
DX: N39.0 Urinary tract infection, site not specified (principal)
CPT/HCPCS: 81001; 87086

== ENCOUNTER 2024-04-03 09:50 | Outpatient (CLI) | payer MEDICARE, SELFPAY ==
--- NOTE | 2024-04-08 13:20 | PC.NURSE ---
PATIENT UNABLE TO PERFORM PFT TESTING. SENT PATIENT TO ER.
== END 2024-04-03 23:59 | disposition home or self-care (01) ==
LOC: RT 09:50
PROVIDERS: PCP Urology; Visit Provider Internal Medicine Pulmonary Disease
DX: R06.02 Shortness of breath (principal)

== ENCOUNTER 2024-04-03 10:47 | Emergency (ER) | payer MEDICARE, SELFPAY ==
[2024-04-03 10:48] VITALS: BP 93/70; PULSE 88; RESP 16; TEMP 36.8; O2SAT 97; BMI 21.9
[2024-04-03 11:05] VITALS: BP 136/83; PULSE 80; O2SAT 100
--- NOTE | 2024-04-03 11:18 | XR_ITS ---
PROCEDURE INFORMATION: Exam: XR Chest Exam date and time: 04/03/2024 11:21 AM Age: 69 years old Clinical indication: Shortness of breath and other: Weakness; Additional info: SOA, weak TECHNIQUE: Imaging protocol: Radiologic exam of the chest. Views: 1 view. COMPARISON: CT CHEST WO/W CON 07/25/2022 10:23 AM FINDINGS: Lungs: Opacity in the right lung base likely represents scarring as noted on the prior CT. Pleural spaces: Unremarkable. No pleural effusion. No pneumothorax. Heart/Mediastinum: Unremarkable. No cardiomegaly. Bones/joints: Unremarkable. IMPRESSION: No acute findings. Opacity in the right lung base likely represents scarring as noted on the prior CT.
[2024-04-03 11:22] LABS: Microscopic, Urine URINE MICROSCOPIC (MICROSCOPIC)
--- NOTE | 2024-04-03 11:22 | HMH.EDGENADL ---
Discharge Plan Disposition Patient Disposition: Home, Self-Care Chief Complaint: Dizziness Prescriptions Prescriptions: No Action Premarin 0.625 mg/gram cream 0.625 mg vaginal .twice weekly Qty: 30 2RF Rx Instructions: blueberry sized amount twice weekly aspirin [Angus Low Dose Aspirin] 81 mg tablet,delayed release (DR/EC) 81 mg PO DAILY trimethoprim 100 mg tablet 100 mg PO DAILY 30 Days Qty: 30 1RF oxybutynin chloride 10 mg tablet extended release 24hr 10 mg PO DAILY 90 Days Qty: 90 1RF estradiol 0.01 % (0.1 mg/gram) cream See Rx Instructions vaginal .COMPLEX Qty: 42.5 2RF Rx Instructions: Using finger technique daily for two weeks and then twice weekly vaginally; fluoride (sodium) [[employer]ent 5000 Dry Mouth] 1.1 % paste 1 applic dental HS Qty: 100 2RF bisoprolol fumarate 10 mg tablet 10 mg PO DAILY Qty: 90 3RF atorvastatin 20 mg tablet See Rx Instructions .ROUTE .COMPLEX Qty: 90 5RF Dose Instruction: TAKE ONE TABLET BY MOUTH EVERY DAY Rx Instructions: TAKE ONE TABLET BY MOUTH EVERY DAY Creon 36,000-114,000- 180,000 unit capsule,delayed release(DR/EC) 1 cap PO QID 90 Days Qty: 360 4RF Rx Instructions: administer with meals and/or snacks losartan 50 mg tablet See Rx Instructions .ROUTE .COMPLEX Qty: 90 3RF Dose Instruction: TAKE ONE TABLET BY MOUTH EVERY DAY Rx Instructions: TAKE ONE TABLET BY MOUTH EVERY DAY dicyclomine 20 mg tablet See Rx Instructions .ROUTE .COMPLEX Qty: 90 5RF Dose Instruction: TAKE ONE TABLET BY MOUTH THREE TIMES DAILY Rx Instructions: TAKE ONE TABLET BY MOUTH THREE TIMES DAILY darifenacin 15 mg tablet extended release 24 hr See Rx Instructions .ROUTE .COMPLEX Qty: 30 5RF Dose Instruction: TAKE ONE TABLET BY MOUTH EVERY DAY Rx Instructions: TAKE ONE TABLET BY MOUTH EVERY DAY Vraylar 1.5 mg capsule See Rx Instructions .ROUTE .COMPLEX Qty: 30 2RF Dose Instruction: TAKE ONE CAPSULE BY MOUTH EVERY DAY Rx Instructions: TAKE ONE CAPSULE BY MOUTH EVERY DAY amitriptyline 10 mg tablet 20 mg PO HS Qty: 60 2RF ondansetron 4 mg tablet,disintegrating 4 mg PO Q6H PRN (Reason: nausea and vomiting) Qty: 30 1RF Referrals Follow up/Referrals: Provider,Referral, MD [Primary Care Provider] - See instructions Pranay Ruiz MD [Staff Physician] - See instructions Activity Restrictions/Add. Instructions Additional Instructions/Restrictions: Call your family doctor to establish care for this visit to the emergency department and schedule follow-up within 48 hours to ensure improvement. If you have any worsening of your condition or any other concerning signs or symptoms, return to the emergency department or your primary care doctor for further evaluation. Call cardiology to follow further for your elevated BNP (sign of early heart failure) and further management Clinical Impressions Clinical Impression: Weakness, Shortness of breath Print Language Print Language: Hungarian Discharge ED Provider: Parviz Machado General Adult HPI General Chief complaint: Dizziness Stated complaint: weakness/dizziness Time Seen by Provider: 04/03/24 10:58 Mode of Arrival: Wheelchair Source of Information: Patient Limitations: No Limitations Description of Symptoms (Recalled from ER Triage Doc. by RN): Patient reports going for a PFT test and becoming weak and lightheaded. States she has been on medication for UTI for some time now and is currently on her third antibiotic. History of Present Illness HPI narrative: Please note that above description of symptoms, in this electronic medical record under categorization of recalled from ER triage doctor by RN are reflective of an initial nursing assessment, however, is not reflective of my full history and physical exam that was personally taken and clarified. Consequentially, this preceding description of symptoms, which may include the patient's categorized chief complaint in the EMR, do not reflect my personal clinical impression, and the ultimate description of history of present illness and patient stated complaints should be deferred to this section of the note. Unless stated otherwise or congruent with this section of the note, additional signs, symptoms, or incongruence should be interpreted as inaccurate with my clinical impression. Related Data Home Medications ?Medication ?Instructions ?Recorded ?Confirmed aspirin 81 mg tablet,delayed 81 mg PO DAILY 10/25/22 03/17/24 release (Angus Low Dose Aspirin) Previous Rx's ?Medication ?Instructions ?Recorded atorvastatin 20 mg tablet See Rx Instructions .Route 04/16/23 .COMPLEX #90 tabs [id number] 1 cap PO QID GE 3 months #360 caps 06/12/23 36,000-114,000-180,000 unit capsule,delay rel (Creon) losartan 50 mg tablet See Rx Instructions .Route 09/17/23 .COMPLEX #90 tabs dicyclomine 20 mg tablet See Rx Instructions .Route 11/02/23 .COMPLEX #90 tabs darifenacin 15 mg tablet,extended See Rx Instructions .Route 11/03/23 release 24 hr .COMPLEX #30 tabs conjugated estrogens 0.625 mg/gram 0.625 mg vaginal .twice weekly #30 11/22/23 vaginal cream (Premarin) grams cariprazine 1.5 mg capsule See Rx Instructions .Route 01/11/24 (Vraylar) .COMPLEX #30 caps amitriptyline 10 mg tablet 20 mg (2 x 10 mg) PO HS #60 tabs 01/21/24 ondansetron 4 mg disintegrating 4 mg PO Q6H PRN nausea and 03/05/24 tablet vomiting #30 tabs bisoprolol fumarate 10 mg tablet 10 mg PO DAILY #90 tabs 03/13/24 fluoride (sodium) 1.1 % dental 1 applic dental HS #100 mL 03/13/24 paste (PreviDent 5000 Dry Mouth) estradiol 0.01% (0.1 mg/gram) See Rx Instructions vaginal 03/17/24 vaginal cream .COMPLEX #42.5 grams oxybutynin chloride 10 mg 10 mg PO DAILY 90 days #90 tabs 03/17/24 tablet,extended release 24 hr trimethoprim 100 mg tablet 100 mg PO DAILY 30 days #30 tabs 03/17/24 Allergies Allergy/AdvReac Type Severity Reaction Status Date / Time clindamycin Allergy Verified 03/17/24 13:55 [facility] Disclaimer: The information contained in this section may have been updated after the patient was seen, as this information can be updated by other users. 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 Dyspnea HTN (hypertension) Right bundle branch block Abnormal electrocardiography Chest pain Surgical History History of appendectomy Family History Other Diabetes Social History Smoking Status: Never smoker alcohol intake: never substance use type: denies use current occupational status: retired Travel in the last 8 weeks: None household members: family and children housing: house caffeine: Yes Other Medical History Have you received the Flu Vaccine for this season: No Have you received the Pneumonia Vaccine: No ROS Obtained: Yes All systems reviewed & no additional complaints except as documented Physical Exam General General appearance: alert Head Head exam: atraumatic and normocephalic Eye Eye exam: Present normal appearance, PERRL and EOMI Neck Neck exam: Present normal inspection, full ROM and trachea midline Respiratory Respiratory exam: Absent respiratory distress, wheezes, stridor, accessory muscle use or prolonged expiratory phase Cardiovascular Cardiovascular exam: Present other (Pulses equal symmetric in upper and lower extremities) Abdominal Exam Abdominal exam: Present soft; Absent distention, tenderness or pulsatile mass Extremities Exam Extremities exam: Absent edema Neurological Exam Neurological exam: Present alert, oriented X3 and CN II-XII intact; Absent motor sensory deficit Skin Skin exam: Present warm and dry; Absent diaphoresis or erythema Medical Decision Making Medical Records Medical records reviewed: Yes I reviewed the patient's medical records. Screening: Per USPSTF and CDC recommendations, given the prevalence of disease in our region, it is our hospital?s policy to screen for HIV and viral Hepatitis for all patients aged 18 and over and those with ongoing risk factors. Charlie Inquiry Pt receiving controlled substance: No Charlie was queried for this patient: No Vital Signs: 04/03/24 10:48 04/03/24 11:05 04/03/24 11:30 Temperature 98.3 F Temperature Source Oral Pulse Rate 80 79 Pulse Rate [Radial] 88 Respiratory Rate 16 Blood Pressure 136/83 Blood Pressure [Right Arm] 93/70 L Blood Pressure Mean [Right Arm] 77 Blood Pressure Source [Right Arm] Automatic Cuff Blood Pressure Position [Right Arm] Sitting 02 Sat by Pulse Oximetry 97 100 99 Oxygen Delivery Method Room Air Room Air Room Air 04/03/24 12:00 Temperature Temperature Source Pulse Rate 81 Pulse Rate [Radial] Respiratory Rate Blood Pressure Blood Pressure [Right Arm] Blood Pressure Mean [Right Arm] Blood Pressure Source [Right Arm] Blood Pressure Position [Right Arm] 02 Sat by Pulse Oximetry 100 Oxygen Delivery Method Room Air Lab Data Lab Results 04/03/24 11:00: Urine Color Yellow, Urine Appearance Clear, Urine pH 6.0, Ur Specific [place] 1.010, Urine Protein Negative, Urine Glucose (UA) Negative, Urine Ketones Negative, Urine Blood Negative, Urine Nitrate Negative, Urine Bilirubin Negative, Urine Urobilinogen 0.2, Ur Leukocyte Esterase 2+ A, Urine RBC None, Urine WBC 20-50, Ur Squamous Epith Cells 10-20, Urine Bacteria Trace 04/03/24 11:18: VBG pH 7.43 H, VBG pCO2 37.0, VBG pO2 48.9 H, VBG HCO3 23.8, VBG Total CO2 25.0, VBG O2 Saturation 87.7 H, VBG Base Excess -0.5, VBG Lactic Acid 1.6 04/03/24 11:22: WBC 7.1, RBC 4.38, Hgb 13.3, Hct 39.3, MCV 89.7, MCH 30.5, MCHC 34.0, RDW 13.3, Plt Count 253, MPV 7.4, Neut % (Auto) 72.8, Lymph % (Auto) 17.2, [place] % (Auto) 7.6, Eos % (Auto) 1.8, Baso % (Auto) 0.7, Neut # (Auto) 5.2, Lymph # (Auto) 1.2, Kem[place] # (Auto) 0.5, Eos # (Auto) 0.1, Baso # (Auto) 0.1, Sodium 136, Potassium 4.5, Chloride 103, Carbon Dioxide 25, Anion Gap 12.5, BUN 10, Creatinine 1.30 H, Estimated Creat Clear 42, Estimated GFR 41 L, Est GFR ( Amer) 49 L, Glucose 109 H, Calcium 9.2, Total Bilirubin 0.8, AST 39 H, ALT 33, Alkaline Phosphatase 135 H, Troponin I < 0.01, NT-Pro-B Natriuret Pep 552 H, Total Protein 7.4, Albumin 4.1, Globulin 3.3 H, Albumin/Globulin Ratio 1.2, TSH 5.13 H, Thyroxine (T4) 14.9 H 04/03/24 11:22 04/03/24 11:22 Orders (Tests/Meds): ORDERS Category Date Time Status CXR --portable [XR chest portable] Stat Exams 04/03/24 11:18 Completed CBC w/Auto Diff [Complete Blood Count Auto Diff] Stat Lab 04/03/24 11:22 Completed CMP [Comprehensive Metabolic Panel] Stat Lab 04/03/24 11:22 Completed HIV (1&2) Antibody Rapid Stat Lab 04/03/24 11:07 Ordered Hep C Ab with Reflex to RNA Stat Lab 04/03/24 11:07 Ordered NT Pro Brain Natriuretic Pep. Stat Lab 04/03/24 11:22 Completed T4 (Thyroxine) Stat Lab 04/03/24 11:22 Completed TSH [Thyroid Stimulating Hormone] Stat Lab 04/03/24 11:22 Completed Trop I [Troponin I] Stat Lab 04/03/24 11:22 Completed Troponin I Q3H Lab 04/03/24 14:30 Ordered Troponin I Q3H Lab 04/03/24 17:30 Ordered UA [Urinalysis and Microscopic] Stat Lab 04/03/24 11:00 Completed Urine Culture Stat Micro 04/03/24 11:00 Received VBG [Venous Blood Gas] Stat RT 04/03/24 11:18 Completed HEART Score History (anamnesis): Slightly suspicious ECG: Normal Age: >65 years Risk factors: 3 or more risk factors Troponin: </= normal limit HEART Score: 4 Medical Decision Narrative: 69-year-old female history of hypertension, recurrent UTIs, anxiety presenting with generalized weakness. Patient states that she has had a urinary tract infection on and off for about a month at this point. Currently on what sounds like maintenance Macrobid. States that she was also recently cycled off of her anxiety medications by primary care provider in the last few weeks and since then its all been downhill. States that she has felt generally weak, but denies fevers, chills, nausea, vomiting, diarrhea, constipation. She has been eating and tolerating p.o. intake without issue. Urinating and having bowel movements as normal. States that she went to have breathing/PFTs done today and was having weakness while doing this, so sent to the emergency department for further evaluation. No chest pain, syncope, or any other concerns. History was obtained via conversation with patient. On arrival, patient hemodynamically stable, alert, oriented x4, appropriate, GCS 15, moving all extremities spontaneously, pupils equal and reactive to light. Full physical exam performed and significant for well-appearing female no acute distress. Lungs are clear to auscultation bilaterally. Cardiac exam without murmurs gallops or rubs. No lower extremity edema. Pulses equal and symmetric in upper and lower extremities. Grossly neurologically intact and ambulatory. Differential includes dehydration, metabolic, infectious, UTI versus pneumonia, ACS, HI, CAD, among others. Patient placed on continuous cardiac monitoring and continuous pulse ox with initial blood pressure 93/70 with repeat shortly thereafter 136/83 without intervention, heart rate 88, saturation 97% on room air. Independent interpretation of EKG shows sinus rhythm with right bundle branch block morphology 77 bpm. AK 168, QRS 149, QTc 426. Workup independently interpreted and significant for mild JEB with creatinine 1.3 up from normal baseline. Otherwise normal chemistry nonactionable. Patient's troponin negative, but BNP elevated at 552, could be related patient's symptoms. She also curiously has elevated TSH and T4, neither high enough to treat at this time. On independent interpretation of imaging, no acute cardiopulmonary airspace disease, no evidence of pulm edema pleural effusions. See radiology read for full review of final results. Heart score 4. Further conversation had with family, they feel this is likely related to near abrupt benzodiazepine cessation. Patient was taken off of 2 mg of Klonopin daily over the period of 3 weeks. Since that time, has had functional decline. I feel this is less likely given patient's stable hemodynamics, no agitation, psychologically intact, not responding to internal stimuli or hallucinating, etc. Could be related, but recommended follow-up with family doctor. On reevaluation, patient still states that she is feeling well, tolerating p.o. intake, but also still at rest. Given patient presentation, workup, history, this most likely represents dehydration as well as new onset mild CHF. Discussion was had with patient regarding need for cardiology follow-up, she voiced understanding. Also conversation had regarding diuretic. I feel at this point I am opting not to prescribe diuretic because of patient's level of dehydration as well. I prefer to have her follow-up with cardiology for further guidance regarding this. Patient brother voiced understanding because patient at baseline without signs or symptoms of clinical decompensation, deemed appropriate for discharge. Results were relayed to patient who voiced understanding and were agreeable to outpatient management and follow up. I discussed my clinical impression with patient and answered all questions. At this time, the evidence for any other entities in the differential is insufficient to warrant any further testing or ED observation. This was explained as well. Advisory was given that persistent or worsening symptoms require further evaluation. I confirmed the understanding of this discussion. Route Vending Machine Servicer disclaimer Much of this encounter note is an electronic house mover spoken language to printed text. Electronic house mover of the spoken language may permit errors. Although I have reviewed the note, some errors may still exist. Critical Care Critical Care Time Critical Care Time: No
[2024-04-03 11:30] VITALS: PULSE 79; O2SAT 99
[2024-04-03 11:31] LABS: Appearance,Urine CLEAR (Clear); Bilirubin,Urine Negative (Negative); Blood, Urine Negative (Negative); Color,Urine YELLOW (Yellow); Glucose,Urine (UA) Negative (Negative); Ketones,Urine Negative (Negative); Leukocyte Esterase,Urine 2+ (Negative); Nitrate,Urine Negative (Negative); Protein,Urine Negative (Negative); Urobilinogen,Urine 0.2 EU/dl (0.2)
[2024-04-03 11:35] LABS: Basophils # 0.1 K/mm3 (0-0.2); Basophils % 0.7 % (0.1-2.0); Eosinophils # 0.1 K/mm3 (0.0-0.4); Eosinophils % 1.8 % (0.1-12.0); Hematocrit 39.3 % (37.0-47.0); Hemoglobin 13.3 g/dL (12.2-16.2); Lymphocytes # 1.2 K/mm3 (0.7-4.5); Lymphocytes % 17.2 % (10-50); Mean Corpuscular Hemoglobin 30.5 pg (27.0-31.2); Mean Corpuscular Volume 89.7 fl (81-99); Mean Platelet Volume 7.4 fl (7.4-10.4); Monocytes # 0.5 K/mm3 (0.1-1.0); Monocytes % 7.6 % (1.7-9.3); Neutrophils # 5.2 K/mm3 (1.8-7.8); Neutrophils % 72.8 % (37.0-80.0); Platelet Count 253 K/mm3 (142-424); Red Blood Count 4.38 M/mm3 (4.20-5.40); Red Cell Distribution Width 13.3 % (11.5-17.5); White Blood Count 7.1 K/mm3 (4.8-10.8)
--- NOTE | 2024-04-03 11:37 | PC.NURSE ---
Notified RT of VBG order
[2024-04-03 11:39] LABS: Alanine Aminotransferase 33 U/L (12-78); Albumin Level 4.1 g/dl (3.5-5.0); Albumin/Globulin Ratio 1.2 (1.1-1.8); Alkaline Phosphatase 135 U/L (38-126); Anion Gap 12.5 mEq/L (5-15); Aspartate Amino Transferase 39 U/L (14-36); Bilirubin,Total 0.8 mg/dl (0.2-1.3); Blood Urea Nitrogen 10 mg/dl (7-17); Calcium 9.2 mg/dl (8.4-10.2); Carbon Dioxide 25 mmol/L (22.0-30.0); Chloride 103 mmol/L (98-107); Creatinine Clearance Estimated 42 mL/min (50-200); Estimated Glomerular Filt Rate 41 ml/min (>60); GFR (African American) 49 ML/MIN (>60); Globulin 3.3 g/dL (1.3-3.2); Glucose 109 mg/dl (74-100); Potassium 4.5 mmoL/L (3.5-5.1); Sodium 136 mmol/L (136-145); Total Protein,Serum 7.4 g/dl (6.3-8.2)
[2024-04-03 11:41] LABS: Bacteria,Urine Trace /lpf; WBC,Urine 20-50 #/hpf (0-3)
--- NOTE | 2024-04-03 11:42 | ECG_ITS ---
APPROVED REPORT Exam: Resting ECG HR:77 bpm ECG Measurements Heart Rate 77 AXES MA 168 P 78 QRSd 149 QRS 91 QT 395 T 46 QTc 426 Conclusion SINUS RHYTHM RIGHT BUNDLE BRANCH BLOCK [120+ ms QRS DURATION, UPRIGHT V1, 40+ ms S IN I/aVL/V4/V5/V6] ABNORMAL ECG UNCONFIRMED REPORT Electronically signed by : YENI CURRAN, 04/05/2024 00:47:42
[2024-04-03 11:47] LABS: Lactate Venous 1.6 mmol/L (0.4-2.0); VBG Base Excess -0.5 mmol/L (-2.4-2.3); VBG HCO3 23.8 mmol/L (23-30); VBG Oxygen Saturation 87.7 % (50-70); VBG PH 7.43 mmol/L (7.31-7.41); VBG PO2 48.9 mmol/L (28-40)
[2024-04-03 11:57] LABS: T4 (Thyroxine) 14.9 ug/dl (5.53-11.0); Troponin I < 0.01 ng/ml (0.00-0.034)
[2024-04-03 12:00] VITALS: PULSE 81; O2SAT 100
--- NOTE | 2024-04-03 12:10 | PC.NURSE ---
DR ANDERS UPDATING DAUGHTER AT THIS TIME
[2024-04-03 12:11] LABS: Thyroid Stimulating Hormone 5.13 uIU/mL (0.465-4.68)
[2024-04-03 12:30] LABS: NT Pro Brain Natriuretic Pep. 552 pg/mL (0-125)
--- NOTE | 2024-04-03 12:42 | PC.NURSE ---
Dr. Machado at BS to update pt/family on results and POC
--- NOTE | 2024-04-03 12:42 | PC.NURSE ---
Dr. Machado at bedside
[2024-04-03 12:46] VITALS: BP 127/80; PULSE 69; RESP 16; TEMP 36.6
--- NOTE | 2024-04-06 16:54 | PC.NURSE ---
DR LOCKHART SPOKE WITH PT R/T URINE CULTURE. NO NEW ORDERS
--- NOTE | 2024-04-07 08:48 | PC.NURSE ---
urine culture discussed with dr lund. pt currently on trimethoprim. no new orders. pt to follow-up with dr manuel
== END 2024-04-03 12:52 | disposition home or self-care (01) ==
PROVIDERS: Emergency Provider Emergency Medicine
DX: R06.02 Shortness of breath (principal); R53.1 Weakness; R42 Dizziness and giddiness
CPT/HCPCS: 71045; 80053; 81001; 82803; 83880; 84436; 84443; 84484; 85025; 87086; 87088; 87186; 93005; 99284

== ENCOUNTER 2024-04-04 10:53 | Outpatient (CLI) | payer MEDICARE, SELFPAY ==
[2024-04-04 12:01] LABS: Iron 98 ug/dL (37-170)
[2024-04-04 12:12] LABS: Total Iron Binding Capacity 251 ug/dL (265-497)
[2024-04-04 12:37] LABS: Ferritin 190 ng/ml (11.1-264)
[2024-04-04 13:52] LABS: Vitamin B12 569 pg/mL (239-931)
[2024-04-04 14:01] LABS: Folate 3.82 ng/mL
[2024-04-15 15:12] LABS: 1,25 Dihydroxy Vitamin D 36 pg/mL (.); 1,25-Dihydroxy, Vitamin D-2 <10 pg/mL (.); 1,25-Dihydroxy, Vitamin D-3 36 pg/mL (.)
== END 2024-04-04 23:59 | disposition home or self-care (01) ==
LOC: LAB 10:54
PROVIDERS: Visit Provider Physician Assistant
DX: R00.0 Tachycardia, unspecified (principal); R06.02 Shortness of breath; R53.1 Weakness; I10 Essential (primary) hypertension; Z86.2 Personal history of diseases of the blood and blood-forming organs and certain disorders involving the immune mechanism; R63.0 Anorexia; F41.9 Anxiety disorder, unspecified
CPT/HCPCS: 36415; 82607; 82652; 82728; 82746; 83540; 83550; 93270

== ENCOUNTER 2024-04-16 13:33 | Outpatient (CLI) | payer MEDICARE, SELFPAY ==
--- NOTE | 2024-04-16 13:38 | CA_ITS ---
APPROVED REPORT EXAM: Comprehensive 2D, Doppler, and color-flow Echocardiogram Bench Tool Maker: Hannah Veloz RVT Ht: 5 ft 7 in Wt: 142lbs BSA: 1.75 BP: 119/70 mmHg Indications: SOA,TACHYCARDIA,RBBB,FATIGUE,CP,HTN 2D Dimensions IVSd 1.19 cm F: 0.6-1.0 LVEF (Visual) 74.90 % PWd 1.63 cm F: 0.6 - 1.0 LA Volume 14.50 mL LVDd 3.18 cm F: 3.9 - 5.3 LA Volume Index 8.29 mL/m2 (M/F) 16-34 LVDs 1.83 cm F: 2.2 - 3.5 M-Mode Dimensions LA Diam 3.05 cm (1.9-4.0) TAPSE 1.41 (<1.7) LV Diastology E Decel Time 157 (160-240 msec) E/A Ratio 0.7 Aortic Valve SHIRLEY Index 1.07 cm2/m2 AoV Peak Remigio. 208.0 (50-130 cm/s) AO Peak GR. 17.30 mmHg AO Mean GR. 7.70 (<5 mmHg) AO VTI 31.4 (18-25 cm) SHIRLEY (VTI) 1.91 (2.5-4.5 cm2) Mitral Valve MV E Max Remigio. 46.0 (40-130 cm/s) MV A Velocity 63.0 (40-130 cm/s) E/A Ratio 0.73 MV PHT 46.0 ms Pulmonary Valve PV Peak Velocity 111.0 (50-150 cm/s) Left Ventricle The left ventricle is normal size. The left ventricular systolic function is normal. The left ventricular ejection fraction is within the normal range. There is increased LV wall thickness. There is normal LV segmental wall motion. Transmitral Doppler flow pattern suggests impaired LV relaxation. LVEF is 60%. Right Ventricle The right ventricle is normal size. The right ventricular systolic function is normal. Atria The left atrium size is normal. The right atrium size is normal. There is no Doppler evidence of interatrial shunt. Aortic Valve The aortic valve is mildly thickened. There is no aortic valvular stenosis. No aortic regurgitation is present. Mitral Valve The mitral valve is normal in structure. No evidence of mitral valve stenosis. Trace mitral regurgitation. Tricuspid Valve The tricuspid valve leaflets are thin and pliable. Trace tricuspid regurgitation. There is insufficient TR jet to estimate RVSP. Trace pulmonic regurgitation. Pulmonic Valve The pulmonary valve is normal in structure. Great Vessels The aortic root is not well-visualized. IVC is normal in size and collapses >50% with inspiration. Pericardium There is no pericardial effusion. Other Information Study Quality: Fair Conclusion Normal biventricular systolic function. No significant valvular stenosis or regurgitation. Electronically signed by : Lashae Ceballos MD 04/17/2024 12:08:06
== END 2024-04-16 23:59 | disposition home or self-care (01) ==
LOC: RT 13:34
PROVIDERS: Visit Provider Physician Assistant
DX: R06.02 Shortness of breath (principal); R53.1 Weakness; I10 Essential (primary) hypertension; R00.0 Tachycardia, unspecified; Z86.2 Personal history of diseases of the blood and blood-forming organs and certain disorders involving the immune mechanism
CPT/HCPCS: 93306

== ENCOUNTER 2024-04-21 15:32 | Outpatient (CLI) | payer MEDICARE, SELFPAY ==
[2024-04-21 15:18] LABS: Microscopic, Urine URINE MICROSCOPIC (MICROSCOPIC)
[2024-04-21 15:40] LABS: Appearance,Urine CLEAR (Clear); Bilirubin,Urine Negative (Negative); Blood, Urine Negative (Negative); Color,Urine YELLOW (Yellow); Glucose,Urine (UA) Negative (Negative); Ketones,Urine Negative (Negative); Leukocyte Esterase,Urine Negative (Negative); Nitrate,Urine Negative (Negative); Protein,Urine Negative (Negative); Specific Gravity, Urine 1.015 (1.005-1.030); Urobilinogen,Urine 0.2 EU/dl (0.2)
[2024-04-21 16:06] LABS: WBC,Urine Occasional #/hpf (0-3)
== END 2024-04-21 23:59 | disposition home or self-care (01) ==
LOC: LAB.DROPOF 15:32
PROVIDERS: PCP Urology; Visit Provider Urology
DX: N39.0 Urinary tract infection, site not specified (principal)
CPT/HCPCS: 81001; 87086

== ENCOUNTER 2024-05-13 08:30 | Emergency (ER) | payer MEDICARE, SELFPAY ==
[2024-05-13 08:35] VITALS: BP 159/70; PULSE 91; RESP 20; TEMP 36.6; O2SAT 97; BMI 21.9
--- NOTE | 2024-05-13 08:43 | XR_ITS ---
FINAL REPORT CLINICAL HISTORY: PAIN, NO KNOWN INJURY COMPARISON: 03/14/2016 FINDINGS: Three views of the right knee reveal no evidence of fracture or dislocation. The bony alignment is normal. There are mild and moderate degenerative changes, worse involving the medial compartment. There is no evidence of joint effusion. No localized soft tissue abnormality is identified. IMPRESSION: Degenerative changes without acute abnormality Reviewed, Interpreted and Dictated by Jevon Leija III, MD Transcribed by Emely Luke Authenticated and [facility]
--- NOTE | 2024-05-13 09:16 | EXP.UTC ---
Discharge Plan Disposition Patient Disposition: Home, Self-Care Condition: Good Prescriptions Prescriptions: New methylprednisolone 4 mg Tablets,Dose Pack 4 mg PO DIRECTED 6 Days Qty: 21 0RF Rx Instructions: Take 1 pack as directed for 6 days No Action losartan 50 mg tablet 50 mg PO DAILY Patient Comments: TAKE ONE TABLET BY MOUTH EVERY DAY atorvastatin 20 mg tablet 20 mg PO DAILY Patient Comments: TAKE ONE TABLET BY MOUTH EVERY DAY oxybutynin chloride 10 mg tablet extended release 24hr 10 mg PO DAILY Patient Comments: TAKE ONE TABLET BY MOUTH EVERY DAY clonazepam 0.5 mg tablet 0.5 mg PO DAILY Patient Comments: TAKE ONE TABLET BY MOUTH THREE TIMES DAILY NEEDED FOR ANXIETY MAY CAUSE DROWSINESS trimethoprim 100 mg tablet 100 mg PO DAILY Patient Comments: TAKE ONE TABLET BY MOUTH EVERY DAY bisoprolol fumarate 10 mg tablet 10 mg PO DAILY Patient Comments: TAKE ONE TABLET BY MOUTH EVERY DAY estradiol 0.01 % (0.1 mg/gram) cream 1 applic VAGINAL DAILY Patient Comments: USING FINGER TECHNIQUE EVERY DAY FOR FOURTEEN DAYS AND THEN TWICE WEEKLY VAGINALLY Creon 36,000-114,000- 180,000 unit capsule,delayed release(DR/EC) 1 cap PO DAILY Patient Comments: TAKE ONE CAPSULE BY MOUTH FOUR TIMES DAILY FOR GE take with meals and/or snacks Vraylar 1.5 mg capsule 1.5 mg PO DAILY Referrals Follow up/Referrals: Srikanth Gramajo DO [Staff Physician] - See instructions Pranay Ta DO [Primary Care Provider] - See instructions Activity Restrictions/Add. Instructions Additional Instructions/Restrictions: Rest the extremity, apply ice for 15 minutes as tolerated three or four times per day, Wear the gama wrap for compression, Elevate the extremity as tolerated while you are resting. Take ibuprofen for pain. Follow up with Dr. Gramajo (orthopedics). I put in a referral but you need to call his office and schedule an appointment. Follow up with your regular doctor. GO TO THE ER FOR ANY WORSENING SYMPTOMS Clinical Impressions Clinical Impression: Knee pain, right Stand Alone Forms Stand Alone Forms: Work/School Release Instructions Patient Instructions: DI for Knee Pain, How to Apply an Elastic Wrap on Knee Print Language Print Language: Martiniquais Discharge ED Provider: Ayan Johnston [facility] General Stated complaint: knee pain Mode of Arrival: Ambulatory Source of Information: Patient Limitations: No Limitations Time Seen by Provider: 05/13/24 09:15 Description of Symptoms (Recalled from Triage Doc. by RN): PATIENT C/O RIGHT KNEE PAIN THAT STARTED 2 DAYS AGO, NO KNOWN INJURY. PATIENT STATES PAIN IS WORSE WITH MOVEMENT AND FLEXION OF FOOT. HEENT Symptoms (Recalled from RN notes): No Resp Symptoms (Recalled from RN notes): No Skin Symptoms (Recalled from RN notes): No MS Symptoms (Recalled from RN notes): Yes Functional Status (Recalled from RN notes): WNL Related Data Home Medications ?Medication ?Instructions ?Recorded ?Confirmed atorvastatin 20 mg tablet 20 mg PO DAILY 05/13/24 05/13/24 bisoprolol fumarate 10 mg tablet 10 mg PO DAILY 05/13/24 05/13/24 cariprazine 1.5 mg capsule 1.5 mg PO DAILY 05/13/24 05/13/24 (Vraylar) clonazepam 0.5 mg tablet 0.5 mg PO DAILY 05/13/24 05/13/24 estradiol 0.01% (0.1 mg/gram) 1 applic vaginal DAILY 05/13/24 05/13/24 vaginal cream [id number] 1 cap PO DAILY 05/13/24 05/13/24 36,000-114,000-180,000 unit capsule,delay rel (Creon) losartan 50 mg tablet 50 mg PO DAILY 05/13/24 05/13/24 oxybutynin chloride 10 mg 10 mg PO DAILY 05/13/24 05/13/24 tablet,extended release 24 hr trimethoprim 100 mg tablet 100 mg PO DAILY 05/13/24 05/13/24 Previous Rx's ?Medication ?Instructions ?Recorded methylprednisolone 4 mg tablets in 4 mg PO DIRECTED 6 days #21 tabs 05/13/24 a dose pack Allergies Allergy/AdvReac Type Severity Reaction Status Date / Time [facility] Allergy Unknown Verified 05/13/24 08:44 allergy reaction clindamycin Allergy Unknown Verified 05/13/24 08:44 allergy reaction Worker's Comp Is this a Worker's Comp case?: No [facility] Disclaimer: The information contained in this section may have been updated after the patient was seen, as this information can be updated by other users. 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 Dyspnea HTN (hypertension) Right bundle branch block Abnormal electrocardiography Chest pain Surgical History History of appendectomy Family History Other Diabetes Social History (Updated 04/24/24 @ 15:36 by JHONY Busby) Smoking Status: Never smoker alcohol intake: never substance use type: denies use current occupational status: retired Travel in the last 8 weeks: None household members: family and children housing: house caffeine: Yes ROS Obtained: Yes All systems reviewed & no additional complaints except as documented Constitutional Constitutional: Denies chills and Denies fever(s) Eyes Eyes: Denies eye discharge ENT Ears, Nose, Mouth, and Throat: Denies dizziness, Denies otalgia and Denies sore throat Cardiovascular Cardiovascular: Denies chest pain Respiratory Respiratory: Denies shortness of breath, Denies chest congestion, Denies cough, Denies stridor and Denies wheezing Gastrointestinal Gastrointestingal: Denies nausea or vomiting Musculoskeletal Musculoskeletal: Reports as per HPI Integumentary/Breasts Skin/Breast: Denies rash Neurologic Neurologic: Denies dizziness and Denies paresthesias Allergic/Immunologic Allergic/Immunologic: Denies wheezing Physical Exam General General appearance: alert and in no apparent distress Head Head exam: atraumatic, normocephalic and normal inspection Eye Eye exam: Present normal appearance, PERRL and EOMI ENT ENT exam: Present normal exam, normal oropharynx, mucous membranes moist, TM's normal bilaterally and normal external ear exam Neck Neck exam: Present normal inspection, full ROM and trachea midline; Absent meningismus or lymphadenopathy Chest Chest inspection: Present normal inspection and symmetric chest wall rise; Absent tenderness Respiratory Respiratory exam: Present normal lung sounds bilaterally; Absent respiratory distress Cardiovascular Cardiovascular exam: Present regular rate and normal rhythm; Absent JVD Abdominal Exam Abdominal exam: Present soft and normal bowel sounds; Absent distention, tenderness or guarding Extremities Exam Extremities exam: Present normal inspection, full ROM and normal capillary refill; Absent calf tenderness Back Exam Back exam: Present normal inspection; Absent tenderness Neurological Exam Neurological exam: Present alert and oriented X3 Psychiatric Psychiatric exam: Present normal affect and normal mood Skin Skin exam: Present warm, dry, intact and normal color Lymphatic Lymphatic Findings: no adenopathy Medical Decision Making Medical Records Medical records reviewed: No I reviewed the patient's medical records. Screening: Per USPSTF and CDC recommendations, given the prevalence of disease in our region, it is our hospital?s policy to screen for HIV and viral Hepatitis for all patients aged 18 and over and those with ongoing risk factors. Charlie Inquiry Pt receiving controlled substance: No Vital Signs: 05/13/24 08:35 Temperature 97.8 F Temperature Source Oral Pulse Rate [Left Brachial] 91 H Respiratory Rate 20 Blood Pressure [Left Arm] 159/70 H Blood Pressure Mean [Left Arm] 99 Blood Pressure Source [Left Arm] Automatic Cuff Blood Pressure Position [Left Arm] Sitting 02 Sat by Pulse Oximetry 97 Oxygen Delivery Method Room Air Orders (Tests/Meds): ORDERS Category Date Time Status Knee XR right 3 views [XR knee RT 3V] Stat Exams 05/13/24 08:43 Taken
[2024-05-13 10:22] VITALS: BP 159/70; PULSE 91; RESP 20; TEMP 36.6; O2SAT 97
== END 2024-05-13 10:27 | disposition home or self-care (01) ==
PROVIDERS: Emergency Provider Nurse Practitioner Family; PCP Internal Medicine
DX: M25.561 Pain in right knee (principal)
CPT/HCPCS: 73562; 99213; G0381

== ENCOUNTER 2024-05-19 04:46 | Emergency (ER) | payer MEDICARE, SELFPAY ==
[2024-05-19 04:56] VITALS: BP 159/86; PULSE 92; RESP 20; TEMP 36.6; O2SAT 99; BMI 21.1
--- NOTE | 2024-05-19 04:58 | XR_ITS ---
PROCEDURE INFORMATION: Exam: XR Chest Exam date and time: 05/19/2024 5:38 AM Age: 69 years old Clinical indication: Other: Abd pain radiating to chest TECHNIQUE: Imaging protocol: Radiologic exam of the chest. Views: 2 views. COMPARISON: CR XR CHEST PORTABLE 04/03/2024 11:21 AM FINDINGS: Lungs: Unremarkable. No consolidation. Pleural spaces: Unremarkable. No pleural effusion. No pneumothorax. Heart/Mediastinum: Unremarkable. No cardiomegaly. Bones/joints: Unremarkable. IMPRESSION: No acute findings.
--- NOTE | 2024-05-19 05:00 | HMH.EDGENADL ---
Discharge Plan Disposition Patient Disposition: Home, Self-Care Condition: Good Prescriptions Prescriptions: New ondansetron 4 mg tablet,disintegrating 4 mg PO Q6H PRN (Reason: nausea and vomiting) Qty: 10 0RF dicyclomine 10 mg capsule 10 mg PO BID PRN (Reason: abdominal pain) Qty: 7 0RF No Action losartan 50 mg tablet 50 mg PO DAILY Patient Comments: TAKE ONE TABLET BY MOUTH EVERY DAY atorvastatin 20 mg tablet 20 mg PO DAILY Patient Comments: TAKE ONE TABLET BY MOUTH EVERY DAY oxybutynin chloride 10 mg tablet extended release 24hr 10 mg PO DAILY Patient Comments: TAKE ONE TABLET BY MOUTH EVERY DAY clonazepam 0.5 mg tablet 0.5 mg PO DAILY Patient Comments: TAKE ONE TABLET BY MOUTH THREE TIMES DAILY NEEDED FOR ANXIETY MAY CAUSE DROWSINESS trimethoprim 100 mg tablet 100 mg PO DAILY Patient Comments: TAKE ONE TABLET BY MOUTH EVERY DAY bisoprolol fumarate 10 mg tablet 10 mg PO DAILY Patient Comments: TAKE ONE TABLET BY MOUTH EVERY DAY estradiol 0.01 % (0.1 mg/gram) cream 1 applic VAGINAL DAILY Patient Comments: USING FINGER TECHNIQUE EVERY DAY FOR FOURTEEN DAYS AND THEN TWICE WEEKLY VAGINALLY Creon 36,000-114,000- 180,000 unit capsule,delayed release(DR/EC) 1 cap PO DAILY Patient Comments: TAKE ONE CAPSULE BY MOUTH FOUR TIMES DAILY FOR GE take with meals and/or snacks Vraylar 1.5 mg capsule 1.5 mg PO DAILY methylprednisolone 4 mg Tablets,Dose Pack 4 mg PO DIRECTED 6 Days Qty: 21 0RF Rx Instructions: Take 1 pack as directed for 6 days Referrals Follow up/Referrals: Pranay Ta DO [Primary Care Provider] - See instructions Activity Restrictions/Add. Instructions Additional Instructions/Restrictions: You were evaluated in the ER and are appropriate for discharge at this time. Take the prescribed ondansetron if needed for nausea. Drink plenty of water. Take the prescribed dicyclomine if needed for cramping. If you are having problems with constipation, consider a single dose of a stool softener or mild laxative. Discuss this with your primary care doctor. Continue your other home medications as prescribed. Make an appointment with your primary care doctor for reevaluation in 2 to 3 days. Return to the ER with new, worsening, or otherwise concerning symptoms. Clinical Impressions Clinical Impression: Abdominal pain Instructions Patient Instructions: DI for Acute Abdominal Pain Print Language Print Language: Micronesian Discharge ED Provider: Dinesh Vieira Adult HPI General Chief complaint: Abdominal Pain Stated complaint: abd pain Time Seen by Provider: 05/19/24 04:49 Mode of Arrival: Ambulatory Source of Information: Patient Limitations: No Limitations Description of Symptoms (Recalled from ER Triage Doc. by RN): abdominal pain History of Present Illness HPI narrative: 69-year-old female presents to the ER with complaints of abdominal pain. Patient is a poor historian, but ultimately after discussion with her and her son at bedside, she described a recent history over the last few months of recurrent UTI that was resistant to antibiotics, she reports she is now on a daily antibiotic to keep the UTI suppressed. She reports she follows with Dr. Arriola. She reports over this time she has had decreased appetite and random episodes of abdominal pain. Tonight the patient ate dinner and around 6 PM started developing abdominal pain. She reports she has pain from her low mid abdomen all the way up to the abdomen and into the chest. She reports nausea but no vomiting, she does report lightheadedness that is associated with the pain and is worse with ambulation. She reports no known cardiac history though she does report having a bundle branch block she has never had a heart attack. She states she kept walking around her house attempting to relieve the pain but was not having significant success, and when she was persistently lightheaded with ambulation, she called her son to bring her to the ER because she was afraid she was going to pass out. She has no numbness, tingling, or localizing weakness. She reports she is not having dysuria or hematuria. She denies fevers, chills, difficulty breathing, or recent symptoms of being ill other than the ones described. She reports she has not had a bowel movement in 3 days which is atypical for her, she reports usually having daily bowel movements. Related Data Home Medications ?Medication ?Instructions ?Recorded ?Confirmed atorvastatin 20 mg tablet 20 mg PO DAILY 05/13/24 05/13/24 bisoprolol fumarate 10 mg tablet 10 mg PO DAILY 05/13/24 05/13/24 cariprazine 1.5 mg capsule 1.5 mg PO DAILY 05/13/24 05/13/24 (Vraylar) clonazepam 0.5 mg tablet 0.5 mg PO DAILY 05/13/24 05/13/24 estradiol 0.01% (0.1 mg/gram) 1 applic vaginal DAILY 05/13/24 05/13/24 vaginal cream [id number] 1 cap PO DAILY 05/13/24 05/13/24 36,000-114,000-180,000 unit capsule,delay rel (Creon) losartan 50 mg tablet 50 mg PO DAILY 05/13/24 05/13/24 oxybutynin chloride 10 mg 10 mg PO DAILY 05/13/24 05/13/24 tablet,extended release 24 hr trimethoprim 100 mg tablet 100 mg PO DAILY 05/13/24 05/13/24 Previous Rx's ?Medication ?Instructions ?Recorded methylprednisolone 4 mg tablets in 4 mg PO DIRECTED 6 days #21 tabs 05/13/24 a dose pack dicyclomine 10 mg capsule 10 mg PO BID PRN abdominal pain #7 05/19/24 caps ondansetron 4 mg disintegrating 4 mg PO Q6H PRN nausea and 05/19/24 tablet vomiting #10 tabs Allergies Allergy/AdvReac Type Severity Reaction Status Date / Time cefaclor (From [facility]) Allergy Unknown Verified 05/13/24 08:44 allergy reaction clindamycin Allergy Unknown Verified 05/13/24 08:44 allergy reaction [facility] Disclaimer: The information contained in this section may have been updated after the patient was seen, as this information can be updated by other users. Medical History Generalized anxiety disorder Elevated brain natriuretic peptide (BNP) level History of anemia Poor appetite Anxiety Sinus tachycardia Decreased diffusion capacity of lung Diarrhea Dyspnea on exertion Chronic [id number] syndrome Dyspnea HTN (hypertension) Right bundle branch block Abnormal electrocardiography Chest pain Surgical History History of appendectomy Family History Other Diabetes Social History (Updated 04/24/24 @ 15:36 by JHONY Busby) Smoking Status: Never smoker alcohol intake: never substance use type: denies use current occupational status: retired Travel in the last 8 weeks: None household members: family and children housing: house caffeine: Yes Have you lived/traveled outside [place] in past 30 days?: No Contact w/someone who lives/traveled outside [place] past 30 days?: No Exposure to someone with infectious disease in past 14 days?: No Do you have a fever (greater than 100.4 F or 38 C)?: No Have you tested positive for COVID-19: No Exposed to someone with COVID-19 in past 14 days?: No Do you have a sore throat?: No Do you have a cough?: No Do you have any weakness?: No Do you have any diarrhea?: No Are you experiencing any unusual bleeding?: No Do you have any muscle aches/pain?: No Do you have any abdominal pain?: Yes Are you experiencing loss of taste or smell?: Yes Other Medical History Have you received the Flu Vaccine for this season: No Have you received the Pneumonia Vaccine: No ROS Obtained: Yes Systems reviewed as appropriate & no additional complaints except as documented Per HPI Physical Exam General General appearance: alert and in no apparent distress Head Head exam: atraumatic and normocephalic Eye Eye exam: Present PERRL and EOMI ENT ENT exam: Present mucous membranes moist Neck Neck exam: Present normal inspection and full ROM Chest Chest inspection: Present symmetric chest wall rise Respiratory Respiratory exam: Present normal lung sounds bilaterally; Absent respiratory distress, wheezes or stridor Cardiovascular Cardiovascular exam: Present regular rate and normal rhythm Abdominal Exam Abdominal exam: Present soft and tenderness (Patient reports diffuse tenderness, however tenderness is maximal in the mid abdominal region); Absent distention, guarding or rebound Extremities Exam Extremities exam: Present full ROM Back Exam Back exam: Absent CVA tenderness (R) or CVA tenderness (L) Neurological Exam Neurological exam: Present alert, oriented X3, CN II-XII intact and normal gait; Absent motor sensory deficit Psychiatric Psychiatric exam: Present normal affect and normal mood Skin Skin exam: Present warm and dry Medical Decision Making Medical Records Medical records reviewed: Yes I reviewed the patient's medical records. Screening: Per USPSTF and CDC recommendations, given the prevalence of disease in our region, it is our hospital?s policy to screen for HIV and viral Hepatitis for all patients aged 18 and over and those with ongoing risk factors. MR Comment: Most recent progress note from urology demonstrates patient is on trimethoprim for 30 days Charlie Inquiry Pt receiving controlled substance: No Vital Signs: 05/19/24 04:56 05/19/24 05:30 Temperature 97.8 F Temperature Source Oral Pulse Rate 61 Pulse Rate [Right Brachial] 92 H Respiratory Rate 20 17 Blood Pressure 137/68 Blood Pressure [Right Arm] 159/86 H Blood Pressure Mean [Right Arm] 110 Blood Pressure Source [Right Arm] Automatic Cuff Blood Pressure Position [Right Arm] Sitting 02 Sat by Pulse Oximetry 99 97 Oxygen Delivery Method Room Air Lab Data Lab Results 05/19/24 05:06: WBC 8.8, RBC 4.21, Hgb 13.0, Hct 38.5, MCV 91.5, MCH 30.9, MCHC 33.8, RDW 14.5, Plt Count 336, MPV 7.4, Neut % (Auto) 63.7, Lymph % (Auto) 27.2, Grainger % (Auto) 7.0, Eos % (Auto) 1.0, Baso % (Auto) 1.1, Neut # (Auto) 5.6, Lymph # (Auto) 2.4, Grainger # (Auto) 0.6, Eos # (Auto) 0.1, Baso # (Auto) 0.1, PT 10.3, INR 0.91, Sodium 139, Potassium 3.3 L, Chloride 107, Carbon Dioxide 24, Anion Gap 11.3, BUN 10, Creatinine 1.40 H, Estimated Creat Clear 38, Estimated GFR 38 L, Est GFR ( Amer) 45 L, Glucose 125 H, Lactate 1.7, Calcium 9.8, Total Bilirubin 0.7, AST 37 H, ALT 33, Alkaline Phosphatase 80, Troponin I < 0.01, Total Protein 7.5, Albumin 4.5, Globulin 3.0, Albumin/Globulin Ratio 1.5, Lipase 172 05/19/24 05:12: Urine Color Yellow, Urine Appearance Clear, Urine pH 6.0, Ur Specific [place] 1.010, Urine Protein Negative, Urine Glucose (UA) Negative, Urine Ketones Negative, Urine Blood Negative, Urine Nitrate Negative, Urine Bilirubin Negative, Urine Urobilinogen 0.2, Ur Leukocyte Esterase 1+ A, Urine RBC None, Urine WBC Occasional, Ur Squamous Epith Cells 3-5, Urine Bacteria None 05/19/24 05:06 05/19/24 05:06 Orders (Tests/Meds): ED MEDICATIONS Generic Name Dose Route Start Last Admin Trade Name Freq PRN Reason Stop Dose Admin Potassium Chloride 20 meq 05/19/24 06:23 Potassium Chloride 20meq Tab PO 05/19/24 06:24 ONCE ONE Sodium Chloride 10 ml 05/19/24 05:53 05/19/24 05:55 Sodium Chloride 0.9% 10ml Syr (Rad Only) IV 06/18/24 05:52 10 ml NEEDED PRN Administration Maintain IV Site Discontinued Medications Generic Name Dose Route Start Last Admin Trade Name Freq PRN Reason Stop Dose Admin Dicyclomine HCl 20 mg 05/19/24 06:22 Dicyclomine 10mg Capsule PO 05/19/24 06:23 ONCE ONE Iopamidol 80 ml 05/19/24 05:53 05/19/24 05:55 Iopamidol-370 (76%);100ml Bottle IV 05/19/24 05:54 80 ml ONCE ONE Administration Morphine Sulfate 4 mg 05/19/24 04:58 05/19/24 05:10 Morphine 4mg/Ml Syringe IV 05/19/24 04:59 4 mg ONCE ONE Administration Ondansetron HCl 4 mg 05/19/24 04:58 05/19/24 05:10 Ondansetron 4mg/2ml Vial IV 05/19/24 04:59 4 mg ONCE ONE Administration Sodium Chloride 50 ml 05/19/24 05:53 05/19/24 05:55 0.9 % Sodium Chloride 50 Ml Vial IV 05/19/24 05:54 50 ml ONCE ONE Administration ORDERS Category Date Time Status CT angio abdomen pelvis Stat Cat Scan 05/19/24 05:16 Completed CXR 2 view (NOT portable) [XR chest 2V] Stat Exams 05/19/24 04:58 Completed Complete Blood Count Auto Diff Stat Lab 05/19/24 05:06 Completed Comprehensive Metabolic Panel Stat Lab 05/19/24 05:06 Completed Lactic Acid Stat Lab 05/19/24 05:06 Completed Lipase Stat Lab 05/19/24 05:06 Completed Prothrombin Time INR Stat Lab 05/19/24 05:06 Completed Troponin I Q3H Lab 05/19/24 08:00 Ordered Troponin I Q3H Lab 05/19/24 11:00 Ordered Troponin I Stat Lab 05/19/24 05:06 Completed Urinalysis and Microscopic Stat Lab 05/19/24 05:12 Completed Urine Culture Stat Micro 05/19/24 05:12 Received Medical Decision Narrative: In summary, this 69-year-old female presents to the emergency department today with abdominal pain radiating into the chest, lightheadedness. On initial evaluation patient is hemodynamically stable, afebrile, GCS 15, no neurologic deficits, cardiopulmonary exam benign, no chest wall tenderness, exam is notable for diffuse abdominal tenderness with maximal tenderness in the mid abdominal region without rebound or guarding. Differential diagnosis includes but is not limited to urinary tract infection, consider pyelonephritis but patient has no CVA tenderness, also consider the possibility of bowel obstruction, biliary pathology, pancreatitis, also considered possibility of mesenteric ischemia given patient describes the pain as severe but does not have very impressive exam, additionally I considered possibility of atypical presentation of ACS, esophageal spasm, constipation, bowel obstruction, among others. Based on these concerns, I ordered serum labs, cardiac workup, chest x-ray, CT angiography abdomen pelvis, urine studies. ECG personally interpreted demonstrates normal sinus rhythm, rate 72, right bundle branch block, normal axis, normal FL and QTc, no STEMI. Patient received morphine, Zofran for treatment. Labs personally reviewed demonstrate normal CBC and PT/INR, CMP with trace hypokalemia, patient is receiving oral repletion. Creatinine continues to slightly increase, up to 1.4 today, based on my review of previous labs it was 1.3 on 04/03 and 1.2 on 03/10. No JEB. Lactate normal at 1.7 which offers some reassurance against mesenteric ischemia, lipase normal at 172 reassuring against pancreatitis, UA not consistent with infection, patient has 1+ leukocyte esterase on dipstick however only occasional WBCs, no bacteria, nitrate negative. I do not believe any change in antibiotics is indicated at this time since she is already on trimethoprim daily. Notes troponin undetectably low less than 0.01. XR personally interpreted demonstrates no acute intrathoracic abnormality, see radiology read for final interpretation. CT abdomen pelvis personally interpreted does not demonstrate acute intra-abdominal pathology, no bowel obstruction, no mesenteric ischemia, see radiology read for final interpretation. I do not believe serial troponins are indicated since patient has been having symptoms for an extended period of time, if her symptoms were cardiac in etiology I would anticipate the troponin to be elevated by now. With reassuring labs and imaging, I believe patient is appropriate for discharge. She also has had improvement of symptoms and is tolerating oral intake. I prescribed dicyclomine and ondansetron for outpatient management. Patient was given instructions on medication use, symptomatic monitoring and management, follow-up instructions, and strict return precautions for the ER. She indicated understanding and the patient was discharged in stable condition. Critical Care Critical Care Time Critical Care Time: No
--- NOTE | 2024-05-19 05:02 | ECG_ITS ---
APPROVED REPORT Exam: Resting ECG HR:72 bpm ECG Measurements Heart Rate 72 AXES NV 141 P 76 QRSd 144 QRS 96 QT 410 T 45 QTc 434 Conclusion SINUS RHYTHM WITH SINUS ARRHYTHMIA RIGHT BUNDLE BRANCH BLOCK [120+ ms QRS DURATION, UPRIGHT V1, 40+ ms S IN I/aVL/V4/V5/V6] ABNORMAL ECG UNCONFIRMED REPORT Electronically signed by : YENI CURRAN, 05/19/2024 23:21:36
[2024-05-19] MEDS: ONDANSETRON 4MG/2ML VIAL 4 MG IV (05:10)
[2024-05-19] MEDS: MORPHINE 4MG/ML SYRINGE 4 MG IV (05:10)
[2024-05-19 05:15] LABS: Microscopic, Urine URINE MICROSCOPIC (MICROSCOPIC)
[2024-05-19 05:16] LABS: Basophils # 0.1 K/mm3 (0-0.2); Basophils % 1.1 % (0.1-2.0); Eosinophils # 0.1 K/mm3 (0.0-0.4); Hematocrit 38.5 % (37.0-47.0); Lymphocytes # 2.4 K/mm3 (0.7-4.5); Lymphocytes % 27.2 % (10-50); Mean Corpuscular HGB Conc 33.8 g/dL (31.8-35.4); Mean Corpuscular Hemoglobin 30.9 pg (27.0-31.2); Mean Corpuscular Volume 91.5 fl (81-99); Mean Platelet Volume 7.4 fl (7.4-10.4); Monocytes # 0.6 K/mm3 (0.1-1.0); Neutrophils # 5.6 K/mm3 (1.8-7.8); Neutrophils % 63.7 % (37.0-80.0); Platelet Count 336 K/mm3 (142-424); Red Blood Count 4.21 M/mm3 (4.20-5.40); Red Cell Distribution Width 14.5 % (11.5-17.5); White Blood Count 8.8 K/mm3 (4.8-10.8)
--- NOTE | 2024-05-19 05:16 | CT_ITS ---
PROCEDURE INFORMATION: Exam: CTA Abdomen and Pelvis With Contrast Exam date and time: 05/19/2024 5:34 AM Age: 69 years old Clinical indication: Abdominal pain; Acute; Additional info: Diffuse abdominal pain, worse mid abdomen TECHNIQUE: Imaging protocol: Computed tomographic angiography of the abdomen and pelvis with contrast. Exam focused on the arteries. 3D rendering (Not supervised by radiologist): MIP and/or 3D reconstructed images were created by the technologist. Radiation optimization: All CT scans at this facility use at least one of these dose optimization techniques: automated exposure control; mA and/or kV adjustment per patient size (includes targeted exams where dose is matched to clinical indication); or iterative reconstruction. Contrast material: ISOUVE 370; Contrast volume: 80 ml; Contrast route: INTRAVENOUS (IV); COMPARISON: CT ABDOMEN PELVIS W CON 03/10/2024 9:59 PM FINDINGS: Aorta: No aortic aneurysm. No aortic dissection. 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 Celiac trunk and mesenteric arteries: No occlusion or significant stenosis. Renal arteries: No occlusion or significant stenosis. Right iliac arteries: No occlusion or significant stenosis. Left iliac arteries: No occlusion or significant stenosis. Liver: Multiple liver granulomas. Gallbladder and biliary ducts: Unremarkable. No calcified stones. No ductal dilation. Pancreas: Unremarkable. No mass. No ductal dilation. Spleen: Multiple splenic granulomas. Adrenal glands: Unremarkable. No mass. Kidneys and ureters: Unremarkable. No solid mass. No hydronephrosis. Stomach and bowel: Unremarkable. No obstruction. No mucosal thickening. Appendix: No evidence of appendicitis. Intraperitoneal space: Unremarkable. No free air. No significant fluid collection. Lymph nodes: Unremarkable. No enlarged lymph nodes. Urinary bladder: Unremarkable. No mass. Reproductive: Unremarkable as visualized. Bones/joints: No acute fracture. Soft tissues: Unremarkable. IMPRESSION: No acute process identified.
[2024-05-19 05:22] LABS: Appearance,Urine CLEAR (Clear); Bilirubin,Urine Negative (Negative); Blood, Urine Negative (Negative); Color,Urine YELLOW (Yellow); Glucose,Urine (UA) Negative (Negative); Ketones,Urine Negative (Negative); Leukocyte Esterase,Urine 1+ (Negative); Nitrate,Urine Negative (Negative); Protein,Urine Negative (Negative); Urobilinogen,Urine 0.2 EU/dl (0.2)
[2024-05-19 05:24] LABS: Lactic Acid 1.7 mmol/L (0.7-2.1)
[2024-05-19 05:26] LABS: Alanine Aminotransferase 33 U/L (12-78); Albumin Level 4.5 g/dl (3.5-5.0); Albumin/Globulin Ratio 1.5 (1.1-1.8); Alkaline Phosphatase 80 U/L (38-126); Anion Gap 11.3 mEq/L (5-15); Aspartate Amino Transferase 37 U/L (14-36); Bilirubin,Total 0.7 mg/dl (0.2-1.3); Blood Urea Nitrogen 10 mg/dl (7-17); Calcium 9.8 mg/dl (8.4-10.2); Carbon Dioxide 24 mmol/L (22.0-30.0); Chloride 107 mmol/L (98-107); Creatinine Clearance Estimated 38 mL/min (50-200); Estimated Glomerular Filt Rate 38 ml/min (>60); GFR (African American) 45 ML/MIN (>60); Glucose 125 mg/dl (74-100); Lipase 172 U/L (23-300); Potassium 3.3 mmoL/L (3.5-5.1); Sodium 139 mmol/L (136-145); Total Protein,Serum 7.5 g/dl (6.3-8.2)
[2024-05-19 05:27] LABS: INR 0.91 (0.9-1.1); Prothrombin Time 10.3 seconds (10.1-12.5)
[2024-05-19 05:30] VITALS: BP 137/68; PULSE 61; RESP 17; O2SAT 97
--- NOTE | 2024-05-19 05:37 | PC.NURSE ---
Pt to CT scan via wheelchair
[2024-05-19 05:41] LABS: WBC,Urine Occasional #/hpf (0-3)
[2024-05-19 05:41] LABS: Troponin I < 0.01 ng/ml (0.00-0.034)
--- NOTE | 2024-05-19 05:52 | PC.NURSE ---
Pt back from CT
[2024-05-19] MEDS: SODIUM CHLORIDE 0.9% 10ML SYR (RAD ONLY) 10 ML IV (05:55)
[2024-05-19] MEDS: IOPAMIDOL-370 (76%);100ML BOTTLE 80 ML IV (05:55)
[2024-05-19] MEDS: 0.9 % SODIUM CHLORIDE 50 ML VIAL IV (05:55)
[2024-05-19] MEDS: POTASSIUM CHLORIDE 20MEQ TAB 20 MEQ PO (06:29)
[2024-05-19 06:55] VITALS: BP 139/73; PULSE 60; RESP 18; TEMP 36.6; O2SAT 99
== END 2024-05-19 06:59 | disposition home or self-care (01) ==
PROVIDERS: Emergency Provider Emergency Medicine; PCP Internal Medicine
DX: R10.30 Lower abdominal pain, unspecified (principal)
CPT/HCPCS: 71046; 74174; 80053; 81001; 83605; 83690; 84484; 85025; 85610; 87086; 93005; 96374; 96375; 99285; J2270; J2405; Q9967

== ENCOUNTER 2024-06-05 16:40 | Outpatient (CLI) | payer MEDICARE, SELFPAY ==
[2024-06-05 17:43] LABS: Free T4 (Free Thyroxine) 1.53 ng/dl (0.78-2.19)
== END 2024-06-05 23:59 | disposition home or self-care (01) ==
LOC: LAB.DROPOF 16:41
PROVIDERS: PCP Internal Medicine; Visit Provider Internal Medicine
DX: Z13.29 Encounter for screening for other suspected endocrine disorder (principal); E03.9 Hypothyroidism, unspecified
CPT/HCPCS: 36415; 84439; 84443

== ENCOUNTER 2024-07-09 09:42 | Outpatient (RCR) | payer MEDICARE, SELFPAY ==
--- NOTE | 2024-07-09 10:57 | HMH.PTOPEV ---
PT Outpatient Evaluation Rehab PT Outpatient Evaluation Start: 07/09/24 09:46 Freq: Status: Active Protocol: Document 07/09/24 09:47 GONZÁLEZ (Rec: 07/09/24 10:57 GONZÁLEZ [id number]) E-signed By Taylor Hurd, PT Outpatient Therapy Subjective History Subjective History Pt is a 69 y/o female who reports to the initial PT evaluation for bilateral lower extremity weakness. Pt reports she had a UTI in February of last year and was not weaned from her medication causing BLE weakness. Pt reports recurrent UTIs for 3-4 months, states she takes prescribed medication for this daily. Pt reports gradual improvement in leg strength since April. Pt denies required use of an AD and denies falls. Pt reports she has a flight of stairs at home she traverses multiple times a day without issue. Pt denies pain, altered balance/coordination, dizziness, visual changes, numbness/tingling, nausea/ vomiting, fevers or night sweats. Pt reports she has noticed taking more frequent rest breaks with daily activities due to leg fatigue and decreased endurance. Pt reports 6/10 RPE at the end of a normal day. Pt states she has been doing a bike at home for 10 repetitions 1x/day for 2 weeks with good tolerance. 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 Chief Complaint Weakness Symptoms Aggravated By Physical Activity Current Functional Limitations Housework,Standing,Recreation Activity,Walking,Stairs Lumbopelvic Eval Assistive device Assistive Devices None / NA Gait Observation General Gait Pattern Observation Shuffling Step Manual Muscle Test Right Knee Extension Strength Grade 4 Good Knee Flexion Strength Grade 4 Good Hip Flexion Strength Grade 4- Good- Hip Abduction Strength Grade 4- Good- Hip Adduction Strength Grade 4- Good- Hip Extension Strength Grade 4- Good- Ankle Dorsiflexion Strength Grade 5 Normal Left Knee Extension Strength Grade 4 Good Knee Flexion Strength Grade 4 Good Hip Flexion Strength Grade 4- Good- Hip Abduction Strength Grade 4- Good- Hip Adduction Strength Grade 4- Good- Hip Extension Strength Grade 4- Good- Ankle Dorsiflexion Strength Grade 5 Normal DTR Rt Patellar 2+ Lt Patellar 2+ Rt Gastroc/Soleus 2+ Lt Gastroc/Soleus 2+ Altered Sensation Bilateral Comment equal and intact to light touch sensation bilaterally Lower Extremity Functional Index Activities Today, do you or would you have any difficulty at all with: a.Any of your usual work, housework or A little bit of difficulty school activities b. Your usual hobbies, recreational or No difficulty sporting activities c. Getting into or out of the bath No difficulty d. Walking between rooms A little bit of difficulty e. Putting on your shoes or socks No difficulty f. Squatting A little bit of difficulty g. Lifting an object, like a bag of A little bit of difficulty groceries from the floor h. Performing light activities around A little bit of difficulty your home i. Performing heavy activities around A little bit of difficulty your home j. Getting into or out of a car No difficulty k. Walking 2 blocks Extreme difficulty or unable to perform activity l. Walking a mile Extreme difficulty or unable to perform activity m. Going up or down 10 stairs (about 1 A little bit of difficulty flight of stairs) n. Standing for 1 hour Extreme difficulty or unable to perform activity o. Sitting for 1 hour A little bit of difficulty p. Running on even ground Extreme difficulty or unable to perform activity q. Running on uneven ground Extreme difficulty or unable to perform activity r. Making sharp turns while running fast Quite a bit of difficulty s. Hopping Extreme difficulty or unable to perform activity t. Rolling over in bed No difficulty LEFI Score Lower Extremity Functional Index Score 45 Outpatient Therapy Assessment Impairments Problems/Impairmments Impaired Strength,Impaired Endurance,Impaired Walking, Impaired Standing,Impaired Household Care,Impaired Stair Climbing,Impaired Self Care/ Self Management Prognosis Rehab Potential Good Clinical Impression Consistent with Diagnosis Yes Short Term Goals Number of Weeks 3 Increase Endurance Yes: Perform NuStep x10' with RPE 5/10 or less Improve LEFI Score Yes: Improve score to at least 50/80 to improve overall QOL Improve Self Care/Self Management Yes Patient to be Ind w/ HEP Yes Halfway Goals Number of Weeks 6 Increase Strength Yes: Improve BLE MMT to 4+/5 grossly to assist with function Increase Endurance Yes: Perform NuStep x15' with RPE 5/10 or less Improve Ability For Household Care Yes: report ability to perform ADLs with RPE <5/10 Improve LEFI Score Yes: Improve score to at least 55/80 to improve overall QOL Patient to be Ind w/ Advanced HEP Yes Outpatient Therapy Plan of Care Treatment Plan May Include Therapeutic Exercise Including Home Yes Exercise Program Manual Therapy Techniques Yes Neuromuscular Re-education Yes Therapeutic Activities to Return to Yes Previous Functional/Work Level Gait Training Yes ADL/Self Care Education Yes Group Therapy for Medicare Yes Eval/Re-Eval Yes Frequency Times per week 1-2 Duration Number of Weeks 4-6 Addendums This patient is a candidate for social No or vocational rehab? Patient/Guardian verbally acknowledges Yes understanding of treatment program and consents to further treatment? Patient/Guardian verbally acknowledges Yes understanding of diagnosis, prognosis and goals for treatment? Eval Complexity PT Charges 00143 - Moderate Complexity Shoulder/Elbow Eval Shoulder Objective Measurements Elbow Objective Measurements PHYSICIAN CERTIFICATION: I certify the specified therapy services for Tierney Ibrahim are required, authorized, and reviewed every 30 days.
== END 2024-07-09 23:59 | disposition home or self-care (01) ==
LOC: PT 09:42
PROVIDERS: PCP Internal Medicine; Visit Provider Internal Medicine
DX: R29.898 Other symptoms and signs involving the musculoskeletal system (principal)
CPT/HCPCS: 97163

== ENCOUNTER 2024-09-26 07:33 | Outpatient (CLI) | payer MEDICARE, SELFPAY ==
[2024-09-26 16:51] LABS: Basophils # 0.1 K/mm3 (0-0.2); Basophils % 0.8 % (0.1-2.0); Eosinophils % 0.6 % (0.1-12.0); Hematocrit 35.8 % (37.0-47.0); Lymphocytes # 2.2 K/mm3 (0.7-4.5); Lymphocytes % 30.3 % (10-50); Mean Corpuscular HGB Conc 33.5 g/dL (31.8-35.4); Mean Corpuscular Volume 92.5 fl (81-99); Mean Platelet Volume 10.3 fl (7.4-10.4); Monocytes # 0.5 K/mm3 (0.1-1.0); Monocytes % 6.9 % (1.7-9.3); Neutrophils # 4.4 K/mm3 (1.8-7.8); Neutrophils % 61.1 % (37.0-80.0); Nucleated Red Blood Cells # 0 10^3/uL; Nucleated Red Blood Cells % 0 %; Platelet Count 260 K/mm3 (142-424); Red Blood Count 3.87 M/mm3 (4.20-5.40); Red Cell Distribution Width 11.8 % (11.5-17.5); Red Cell Distribution Width-SD 39.7 fL; White Blood Count 7.3 K/mm3 (4.8-10.8)
[2024-09-26 17:19] LABS: Alanine Aminotransferase 24 U/L (12-78); Albumin Level 4.4 g/dl (3.5-5.0); Albumin/Globulin Ratio 1.5 (1.1-1.8); Alkaline Phosphatase 78 U/L (38-126); Anion Gap 9.8 mEq/L (5-15); Aspartate Amino Transferase 31 U/L (14-36); Bilirubin,Total 0.7 mg/dl (0.2-1.3); Blood Urea Nitrogen 15 mg/dl (7-17); Calcium 9.7 mg/dl (8.4-10.2); Carbon Dioxide 24 mmol/L (22.0-30.0); Chloride 110 mmol/L (98-107); Estimated Glomerular Filt Rate 38 ml/min (>60); GFR (African American) 45 ML/MIN (>60); Glucose 104 mg/dl (74-100); Potassium 3.8 mmoL/L (3.5-5.1); Sodium 140 mmol/L (136-145); Total Protein,Serum 7.4 g/dl (6.3-8.2)
[2024-09-26 17:25] LABS: C-Reactive Protein 0.6 mg/L (0-4)
[2024-09-26 17:36] LABS: Free T4 (Free Thyroxine) 1.61 ng/dl (0.78-2.19)
[2024-09-26 17:55] LABS: Thyroid Stimulating Hormone 2.52 uIU/mL (0.465-4.68)
[2024-09-29 15:11] LABS: Tissue Transglutaminase IgA Ab <2 U/mL (0-3)
== END 2024-09-26 23:59 | disposition home or self-care (01) ==
LOC: LAB.DROPOF 09-27 07:33
PROVIDERS: PCP Internal Medicine; Visit Provider Internal Medicine
DX: Z00.00 Encounter for general adult medical examination without abnormal findings (principal); E03.9 Hypothyroidism, unspecified; Z13.29 Encounter for screening for other suspected endocrine disorder; K52.9 Noninfective gastroenteritis and colitis, unspecified; R10.9 Unspecified abdominal pain
CPT/HCPCS: 80053; 83516; 84439; 84443; 85025; 86140; 87086; 87088

== ENCOUNTER 2024-09-29 11:31 | Outpatient (CLI) | payer MEDICARE, SELFPAY ==
[2024-10-01 07:10] LABS: Calprotectin, Fecal 100 ug/g (0-120)
== END 2024-09-29 23:59 | disposition home or self-care (01) ==
LOC: LAB.DROPOF 11:32
PROVIDERS: PCP Internal Medicine; Visit Provider Internal Medicine
DX: K52.9 Noninfective gastroenteritis and colitis, unspecified (principal); R63.4 Abnormal weight loss; Z68.1 Body mass index [BMI] 19.9 or less, adult
CPT/HCPCS: 83993; 87045

== ENCOUNTER 2024-10-13 12:16 | Day surgery (SDC) | payer MEDICARE, SELFPAY ==
[2024-10-10 13:07] VITALS: BMI 18.3
[2024-10-13 13:21] VITALS: BP 156/78; PULSE 72; RESP 17; TEMP 36.2; O2SAT 96
[2024-10-13] MEDS: LACTATED RINGERS 1000ML 1,000 ML 50 ML IV (13:21)
--- NOTE | 2024-10-13 14:11 | EXP.HP ---
History of Present Illness *Admission Date: 10/13/24 *Reason for visit:: Early satiety/weight loss/diarrhea and change in bowel habits *History of present illness: Mrs. Ibrahim is a 69-year-old female who is here for diagnostic EGD and colonoscopy. The patient has had early satiety and weight loss. She also has had a change in bowel habits and diarrhea. The examination is deemed medically necessary for EGD and colonoscopy. The patient has been seen, interviewed and examined prior to the procedure by both myself and the anesthesia provider. [facility] Disclaimer: The information contained in this section may have been updated after the patient was seen, as this information can be updated by other users. 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 Dyspnea HTN (hypertension) Right bundle branch block Abnormal electrocardiography Chest pain Surgical History History of esophagogastroduodenoscopy (EGD) History of colonoscopy History of appendectomy Family History Other Diabetes Social History Smoking Status: Never smoker alcohol intake: never substance use type: denies use current occupational status: retired Travel in the last 8 weeks?: None household members: family and children housing: house caffeine: Yes Have you lived/traveled outside [place] in past 30 days?: No Contact w/someone who lives/traveled outside [place] past 30 days?: No Exposure to someone with infectious disease in past 14 days?: No Do you have a fever (greater than 100.4 F or 38 C)?: No Have you tested positive for COVID-19?: No Exposed to someone with COVID-19 in past 14 days?: No Do you have a sore throat?: No Do you have a cough?: No Do you have any weakness?: No Are you experiencing any nausea/vomitting?: No Do you have any diarrhea?: No Are you experiencing any unusual bleeding?: No Do you have any muscle aches/pain?: No Do you have any abdominal pain?: No Are you experiencing loss of taste or smell?: No Other Medical History Have you received the Flu Vaccine for this season: No Have you received the Pneumonia Vaccine: No Review of Systems Review of Systems Review of systems (narrative): Negative *Cardiovascular Comments: Negative *Gastrointestinal Comments: Negative *Genitourinary Comments: Negative *Musculoskeletal Comments: Negative *Neurologic Comments: Negative Meds Home Medications and Allergies Home Medications ?Medication ?Instructions ?Recorded ?Confirmed ?Type bisoprolol fumarate 10 mg tablet 10 mg PO DAILY #90 tabs 05/29/24 10/13/24 Rx aspirin 81 mg tablet,delayed 81 mg PO DAILY 06/05/24 10/10/24 History release (Angus Low Dose Aspirin) atorvastatin 20 mg tablet See Rx Instructions .Route 06/06/24 10/10/24 Rx .COMPLEX #90 tabs losartan 50 mg tablet 50 mg PO DAILY #90 tabs 07/31/24 10/13/24 Rx oxybutynin chloride 10 mg 10 mg PO DAILY #30 tabs 07/31/24 10/10/24 Rx tablet,extended release 24 hr trimethoprim 100 mg tablet 100 mg PO DAILY #90 tabs 09/22/24 10/10/24 Rx [id number]-[id number] 2 cap PO QID 10/10/24 10/10/24 History 36,000-114,000-180,000 unit capsule,delay rel (Creon) clonazepam 0.5 mg tablet 0.5 mg PO BID anxiety #60 tabs 10/11/24 10/13/24 Rx New Prescriptions to Start Prescriptions: Allergies Allergy/AdvReac Type Severity Reaction Status Date / Time cefaclor (From [facility]) Allergy Unknown Verified 10/13/24 13:19 allergy reaction clindamycin Allergy Unknown Verified 10/13/24 13:19 allergy reaction potassium chloride AdvReac Vomiting Verified 10/13/24 13:19 steroids AdvReac Vomiting Uncoded 10/10/24 13:31 Exam Data for Last 24 hours Vital signs and Labs for Last 24 Hours: Temp Pulse Resp BP Pulse Ox O2 Del Method 97.2 F L 72 17 156/78 H 96 Room Air 10/13/24 13:21 10/13/24 13:21 10/13/24 13:21 10/13/24 13:21 10/13/24 13:21 10/13/24 13:21 I & O for Last 24 hours: Intake & Output 10/10/24 10/11/24 10/12/24 10/13/24 23:59 23:59 23:59 23:59 Weight 117 lb *Routine HEENT Exam Head: Present normocephalic Eye: Present EOMI and PERRL ENT: Present mucous membranes moist *Routine Neck Exam Neck: Present supple *Routine Respiratory Exam Respiratory: Present CTA bilaterally *Routine Cardiovascular Exam Cardiovascular: Present RRR *Routine Abdominal Exam Abdominal: Present soft and normoactive bowel sounds; Absent tenderness *Routine Rectal Exam Rectal:: deferred *Routine Genitalia Exam Genitalia:: deferred *Routine Extremities Exam Extremities: Absent cyanosis, clubbing or edema *Routine Skin Exam Skin: Present warm; Absent rash *Routine Neurological Exam Neurological: Present alert and oriented X3 Assessment and Plan *Assessment and plan (1) Early satiety: Status: Acute Category: Medical Code(s): R68.81 - Early satiety (2) Change in bowel habits: Status: Acute Category: Medical Code(s): R19.4 - Change in bowel habit (3) Weight loss, non-intentional: Status: Acute Category: Medical Code(s): R63.4 - Abnormal weight loss (4) Chronic diarrhea: Status: Acute Category: Medical Code(s): K52.9 - Noninfective gastroenteritis and colitis, unspecified Plan A/P: 1. Early satiety with weight loss and change in bowel habits with diarrhea is the preprocedural diagnosis. The patient will be anesthetized/sedated using MAC sedation. The patient has been seen and examined. Cardiac and lung assessment prior to the examination is stable. Proceed with planned diagnostic EGD and colonoscopy.
[2024-10-13 14:16] VITALS: O2SAT 98
--- NOTE | 2024-10-13 14:20 | P.PCN_ITS ---
[facility] Procedure Note Date: 10/13/24 Time: 14:31 Procedure Note:: Upper Endoscopy Procedure Report: Esophagogastroduodenoscopy with cold biopsies Endoscopost: Jett Sanchez II, MD Referring Physician: Pranay Ta DO Date of Procedure: October 13, 2024 Equipment: Olympus GIF 190 standard upper endoscope Sedation: MAC sedation Indications: Mrs. Ibrahim is a 69-year-old female who is here for diagnostic EGD and colonoscopy. The patient has had longstanding IBS with diarrhea as well as exocrine pancreatic insufficiency. Her fecal elastase was low at 77. The patient has had increasing fullness and weight loss. The patient did have CT imaging of the abdomen in May 2024 that was read as no acute process with normal-appearing pancreas. There were multiple granulomas in the liver and spleen. The gallbladder and biliary system appeared normal. Her chest x-ray in May 2024 was also unremarkable. The patient has had labs and most recent labs in September 2024 showed hemoglobin 12.0 and hematocrit 35.8 (mild decline) and her liver chemistries were normal. She did have a normal lipase (172) in May 2024. Stool testing has shown normal fecal fats and normal fecal calprotectin. She has had negative celiac serologies. The patient does have chronic diarrhea. The patient's colonoscopy in February 2018 was normal. She did have an EGD with al in December 2017 which showed gastritis/gastropathy and biopsies at that time showed H. pylori. Procedure: Prior to the procedure, a history and physical exam was performed, and patient's medications and allergies were reviewed. The risks, benefits and alternatives of the sedation and procedure were discussed with the patient. All questions were answered and informed consent was obtained. The patient was brought to the procedure room. Patient identification and proposed procedure were verified by the physician and the nurse. The patient was placed in a left lateral decubitus position and the scope was passed under direct vision. Throughout the procedure, the patient's blood pressure, pulse, and oxygen saturations were monitored continuously. The upper GI endoscopy was accomplished without difficulty. The patient tolerated the procedure well. Findings: The scope was passed directly into the upper esophagus and advanced to the fourth portion of duodenum and proximal jejunum. Cold biopsies were taken x 4 of the proximal jejunum for the disaccharidase assay. The jejunum, post bulbar duodenum and duodenal bulb were normal with normal mucosa and conniventes. The scope was withdrawn through a normal duodenal bulb and pylorus into the stomach. There was bile reflux with mild antral gastropathy and mild atrophy of the body and fundus. Biopsies were taken from the proximal body of the stomach to rule out H. pylori. Upon retroflexion there was no hiatal hernia. The scope was then withdrawn into the esophagus. There was no evidence of reflux esophagitis or Nagy's. The remainder of the esophageal mucosa was normal. Impression: 1. Bile reflux with very mild antral gastropathy and mild proximal gastric atrophy Plan: I will follow-up the biopsies for H. pylori as well as the disaccharidase assay of jejunum. I will proceed with diagnostic colonoscopy. Given her marked and abrupt weight loss, I would consider repeating imaging of the abdomen as well.
--- NOTE | 2024-10-13 14:33 | P.PCN_ITS ---
[facility] Procedure Note Date: 10/13/24 Time: 14:43 Procedure Note:: Colonoscopy Procedure Report: Colonoscopy with cold biopsies Endoscopist: Jett Sanchez II, MD Referring physician: Pranay Ta DO Date of Procedure: October 13, 2024 Equipment: Olympus 190 variable stiffness pediatric colonoscope Sedation: MAC sedation Indication: Mrs. Ibrahim is a 69-year-old female who is here for diagnostic EGD and colonoscopy. The patient has had longstanding IBS with diarrhea as well as exocrine pancreatic insufficiency. Her fecal elastase was low at 77. The patient has had increasing fullness and weight loss. The patient did have CT imaging of the abdomen in May 2024 that was read as no acute process with normal-appearing pancreas. There were multiple granulomas in the liver and spleen. The gallbladder and biliary system appeared normal. Her chest x-ray in May 2024 was also unremarkable. The patient has had labs and most recent labs in September 2024 showed hemoglobin 12.0 and hematocrit 35.8 (mild decline) and her liver chemistries were normal. She did have a normal lipase (172) in May 2024. Stool testing has shown normal fecal fats and normal fecal calprotectin. She has had negative celiac serologies. The patient does have chronic diarrhea. The patient's colonoscopy in February 2018 was normal. She did have an EGD with id in December 2017 which showed gastritis/gastropathy and biopsies at that time showed H. pylori. The patient reports no rectal bleeding or family history of colon cancer. Her colonoscopy in February 2018 was normal and was also normal in 2009. Procedure: Prior to the procedure, a history and physical exam was performed, and patient's medications and allergies were reviewed. The risks, benefits and alternatives of the sedation and procedure were discussed with the patient. All questions were answered and informed consent was obtained. The patient was brought to the procedure room. Patient identification and proposed procedure were verified by the physician and the nurse. The patient was placed in a left lateral decubitus position and the scope was passed under direct vision. Throughout the procedure, the patient's blood pressure, pulse, and oxygen saturations were monitored continuously. The colonoscopy was accomplished without difficulty. The patient tolerated the procedure well. Findings: On digital rectal examination there was normal rectal tone. There were no external hemorrhoids. The colonoscope was introduced through the anal canal to the rectum and advanced to the cecum. The ileocecal valve and appendiceal orifice were identified. The scope was advanced a short distance into the ileum which appeared grossly normal. The scope was then withdrawn into the colon. The cecum, ascending, transverse, descending, sigmoid and rectum were grossly normal. Cold biopsies were taken from the right colon to rule out microscopic colitis. There was some minor blanching of the right colon mucosa suggestive of vascular perfusion defect. There were no mucosal abnormalities identified. Upon retroflexion within the rectum there were grade 1 internal hemorrhoids. The preparation was excellent throughout with [place] Preparation Score of 9. The cecal time was 12 minutes. Impression: 1. Normal colonoscopy with intubation of the terminal ileum Plan: I will follow-up the biopsies to rule out microscopic colitis. There was some mild blanching of the right colon suggestive of a vascular perfusion defect of the SMA but the patient CT angiography in May showed no celiac/mesenteric artery occlusion or stenosis. I would consider follow-up CT imaging because of her profound weight loss.
[2024-10-13 14:48] VITALS: BP 98/51; PULSE 69; RESP 16; O2SAT 99
[2024-10-13 14:58] VITALS: BP 94/54; PULSE 72; RESP 16; O2SAT 99
[2024-10-13 15:08] VITALS: BP 113/71; PULSE 77; RESP 16; O2SAT 99
[2024-10-13 15:16] VITALS: BP 120/77; PULSE 71; RESP 18; O2SAT 99
[2024-10-17 15:42] LABS: Disclaimer Notes (.); Interpretation Notes (.); Lactase 81.59 (>/= 14.0); Maltase 262.97 (>/= 110.0); Palatinase 39.31 (>/= 8.5); Reference Notes (.); Sucrase 203.58 (>/= 25.0)
== END 2024-10-13 15:44 | disposition home or self-care (01) ==
PROVIDERS: PCP Internal Medicine; Visit Provider Internal Medicine Gastroenterology
PROC: 0DJ08ZZ Inspection of Upper Intestinal Tract, Via Natural or Artificial Opening Endoscopic (ICD-10-PCS; CPT 45378; principal; 2024-10-13 14:00)
DX: R68.81 Early satiety (principal); R19.4 Change in bowel habit; R63.4 Abnormal weight loss; K58.0 Irritable bowel syndrome with diarrhea; K31.9 Disease of stomach and duodenum, unspecified; K29.40 Chronic atrophic gastritis without bleeding
CPT/HCPCS: 43239; 82657; J7120

== ENCOUNTER 2024-11-27 14:11 | Outpatient (CLI) | payer MEDICARE, SELFPAY ==
[2024-11-27 18:06] LABS: Alanine Aminotransferase 125 U/L (12-78); Albumin Level 4.7 g/dl (3.5-5.0); Albumin/Globulin Ratio 1.4 (1.1-1.8); Alkaline Phosphatase 114 U/L (38-126); Anion Gap 17.1 mEq/L (5-15); Aspartate Amino Transferase 92 U/L (14-36); Bilirubin,Total 0.8 mg/dl (0.2-1.3); Blood Urea Nitrogen 14 mg/dl (7-17); Calcium 10.1 mg/dl (8.4-10.2); Carbon Dioxide 25 mmol/L (22.0-30.0); Chloride 101 mmol/L (98-107); Estimated Glomerular Filt Rate 38 ml/min (>60); GFR (African American) 45 ML/MIN (>60); Globulin 3.3 g/dL (1.3-3.2); Glucose 119 mg/dl (74-100); Potassium 4.1 mmoL/L (3.5-5.1); Sodium 139 mmol/L (136-145)
== END 2024-11-27 23:59 | disposition home or self-care (01) ==
LOC: LAB.DROPOF 11-28 10:02
PROVIDERS: PCP Internal Medicine; Visit Provider Internal Medicine
DX: Z00.00 Encounter for general adult medical examination without abnormal findings (principal)
CPT/HCPCS: 80053

== ENCOUNTER 2024-12-02 15:27 | Outpatient (CLI) | payer MEDICARE, SELFPAY ==
[2024-12-02 14:03] LABS: Microscopic, Urine URINE MICROSCOPIC (MICROSCOPIC)
[2024-12-02 15:12] LABS: Bilirubin,Urine Negative (Negative); Color,Urine YELLOW (Yellow); Glucose,Urine (UA) Negative (Negative); Ketones,Urine Negative (Negative); Leukocyte Esterase,Urine 1+ (Negative); PH,Urine 6.0 (5.0-8.5); Protein,Urine Negative (Negative); Specific Gravity, Urine 1.010 (1.005-1.030); Urobilinogen,Urine 0.2 EU/dl (0.2)
[2024-12-02 17:51] LABS: Hemoglobin A1C 6.6 % (4.0-6.0)
[2024-12-02 18:04] LABS: Amorphous Sediment,Urine 2+ /lpf; WBC,Urine 20-50 #/hpf (0-3)
[2024-12-02 18:05] LABS: Bacteria,Urine 4+ /lpf
[2024-12-02 22:11] LABS: C-Reactive Protein 320.0 mg/L (0-4)
[2024-12-03 12:12] LABS: Antinuclear Antibodies (ANA) Positive (Negative)
== END 2024-12-02 23:59 | disposition home or self-care (01) ==
LOC: LAB.DROPOF 15:27
PROVIDERS: PCP Internal Medicine; Visit Provider Internal Medicine
DX: Z00.00 Encounter for general adult medical examination without abnormal findings (principal); Z13.1 Encounter for screening for diabetes mellitus; I10 Essential (primary) hypertension; R10.9 Unspecified abdominal pain; K52.9 Noninfective gastroenteritis and colitis, unspecified; R63.4 Abnormal weight loss
CPT/HCPCS: 81001; 83036; 85651; 86038; 86140; 87086

== ENCOUNTER 2024-12-31 12:18 | Outpatient (CLI) | payer MEDICARE, SELFPAY ==
[2024-12-31 12:38] LABS: Microscopic, Urine URINE MICROSCOPIC (MICROSCOPIC)
[2024-12-31 12:59] LABS: Bilirubin,Urine Negative (Negative); Color,Urine YELLOW (Yellow); Glucose,Urine (UA) Negative (Negative); Ketones,Urine Negative (Negative); Leukocyte Esterase,Urine 2+ (Negative); PH,Urine 6.0 (5.0-8.5); Protein,Urine Negative (Negative); Specific Gravity, Urine <= 1.005 (1.005-1.030); Urobilinogen,Urine 0.2 EU/dl (0.2)
[2024-12-31 13:03] LABS: Hematocrit 37.0 % (37.0-47.0); Hemoglobin 11.8 g/dL (12.2-16.2); Immature Granulocytes % 0.2 %; Mean Corpuscular HGB Conc 31.9 g/dL (31.8-35.4); Mean Corpuscular Hemoglobin 29.3 pg (27.0-31.2); Mean Corpuscular Volume 91.8 fl (81-99); Nucleated Red Blood Cells % 0 %; Platelet Count 244 K/mm3 (142-424); Red Blood Count 4.03 M/mm3 (4.20-5.40); Red Cell Distribution Width-SD 43.0 fL; White Blood Count 5.9 K/mm3 (4.8-10.8)
[2024-12-31 13:21] LABS: Bacteria,Urine Trace /lpf
[2024-12-31 13:38] LABS: Creatine Kinase 42 U/L (30-135)
[2024-12-31 13:45] LABS: C-Reactive Protein 0.7 mg/L (0-4)
[2025-01-01 08:42] LABS: Immunoglobulin A, Qn 332 mg/dL (87-352); Immunoglobulin G, Qn 1718 mg/dL (586-1602); Immunoglobulin M, Qn 90 mg/dL (26-217); RA Latex Turbid. 13.8 IU/mL (<14.0)
[2025-01-01 16:13] LABS: Albumin 3.7 g/dL (2.9-4.4); Alpha-1-Globulin 0.2 g/dL (0.0-0.4); Alpha-2-Globulin 0.8 g/dL (0.4-1.0); Gamma Globulin 1.7 g/dL (0.4-1.8)
[2025-01-02 15:11] LABS: dsDNA AB Crithidia Negative (Negative)
== END 2024-12-31 23:59 | disposition home or self-care (01) ==
LOC: LAB 12:21
PROVIDERS: PCP Internal Medicine; Visit Provider Internal Medicine Rheumatology
DX: N18.9 Chronic kidney disease, unspecified (principal); R63.4 Abnormal weight loss; R68.2 Dry mouth, unspecified; R76.0 Raised antibody titer; R53.83 Other fatigue
CPT/HCPCS: 36415; 81001; 82550; 82784; 82785; 84155; 84165; 85025; 85651; 86140; 86160; 86225; 86431; 87077; 87086

== ENCOUNTER 2025-01-05 16:00 | Outpatient (CLI) | payer MEDICARE, SELFPAY ==
[2025-01-05 16:09] LABS: Microscopic, Urine URINE MICROSCOPIC (MICROSCOPIC)
[2025-01-05 19:04] LABS: Bilirubin,Urine Negative (Negative); Color,Urine YELLOW (Yellow); Glucose,Urine (UA) Negative (Negative); Ketones,Urine Negative (Negative); Leukocyte Esterase,Urine Negative (Negative); PH,Urine 6.0 (5.0-8.5); Protein,Urine Negative (Negative); Specific Gravity, Urine 1.010 (1.005-1.030); Urobilinogen,Urine 0.2 EU/dl (0.2)
[2025-01-05 20:28] LABS: WBC,Urine Occasional #/hpf (0-3)
== END 2025-01-05 23:59 | disposition home or self-care (01) ==
LOC: LAB 16:01
PROVIDERS: PCP Internal Medicine; Visit Provider Internal Medicine Rheumatology
DX: N18.9 Chronic kidney disease, unspecified (principal); R53.83 Other fatigue; R63.4 Abnormal weight loss
CPT/HCPCS: 81001; 87086

== ENCOUNTER 2025-02-18 20:09 | Emergency (ER) | payer MEDICARE, SELFPAY ==
[2025-02-18 20:22] VITALS: BP 116/88; PULSE 63; RESP 20; TEMP 36.6; O2SAT 100; BMI 15.5
[2025-02-18 20:49] LABS: Hematocrit 34.4 % (37.0-47.0); Hemoglobin 11.7 g/dL (12.2-16.2); Immature Granulocytes % 0.3 %; Mean Corpuscular HGB Conc 34.0 g/dL (31.8-35.4); Mean Corpuscular Hemoglobin 30.7 pg (27.0-31.2); Mean Corpuscular Volume 90.3 fl (81-99); Nucleated Red Blood Cells % 0 %; Platelet Count 218 K/mm3 (142-424); Red Blood Count 3.81 M/mm3 (4.20-5.40); Red Cell Distribution Width-SD 42.0 fL; White Blood Count 6.7 K/mm3 (4.8-10.8)
--- NOTE | 2025-02-18 21:06 | HMH.EDGENADL ---
Discharge Plan Disposition Patient Disposition: Home, Self-Care Condition: Fair Prescriptions Prescriptions: New ondansetron 4 mg tablet,disintegrating 4 mg PO DAILY PRN (Reason: nausea and vomiting) 5 Days Qty: 10 0RF dicyclomine 20 mg tablet 20 mg PO BID Qty: 20 0RF No Action bisoprolol fumarate 10 mg tablet 10 mg PO DAILY Qty: 90 2RF atorvastatin 20 mg tablet See Rx Instructions .ROUTE .COMPLEX Qty: 90 5RF Dose Instruction: TAKE ONE TABLET BY MOUTH EVERY DAY Rx Instructions: TAKE ONE TABLET BY MOUTH EVERY DAY trimethoprim 100 mg tablet 100 mg PO DAILY Qty: 90 2RF Creon 36,000-114,000- 180,000 unit capsule,delayed release(DR/EC) 2 cap PO .With meals Qty: 200 12RF Rx Instructions: Please take 2 capsules with meals triamcinolone acetonide 0.1 % cream 1 applic topical TID Qty: 30 0RF Viberzi 75 mg tablet 75 mg PO BID Qty: 60 3RF Rx Instructions: must administer with a meal/food oxybutynin chloride 10 mg tablet extended release 24hr 10 mg PO DAILY Qty: 30 3RF ondansetron 4 mg tablet,disintegrating 4 mg PO Q6-8H Qty: 40 1RF levocetirizine 5 mg tablet See Rx Instructions .ROUTE .COMPLEX Qty: 90 3RF Dose Instruction: TAKE ONE TABLET BY MOUTH EVERY DAY Rx Instructions: TAKE ONE TABLET BY MOUTH EVERY DAY losartan 25 mg tablet See Rx Instructions .ROUTE .COMPLEX Qty: 90 3RF Dose Instruction: TAKE ONE TABLET BY MOUTH EVERY DAY Rx Instructions: TAKE ONE TABLET BY MOUTH EVERY DAY clonazepam [Klonopin] 0.5 mg tablet 0.5 mg PO BID Qty: 60 0RF Referrals Follow up/Referrals: Pranay Ta DO [Primary Care Provider, Family Practice] - See instructions Activity Restrictions/Add. Instructions Additional Instructions/Restrictions: Follow-up with Dr. Sanchez tomorrow and your primary care provider for further work-up of your abdominal pain. I have sent you with zofran which you can continue to use for nausea at home. Clinical Impressions Clinical Impression: Abdominal pain Instructions Patient Instructions: DI for Diarrhea and Traveler's Diarrhea -- Adult, DI for Diarrhea and Traveler's Diarrhea -- Child, DI for Nausea -- Adult, DI for Nausea -- Child Print Language Print Language: Cook Islander Discharge ED Provider: Tricia Oreilly General Adult HPI General Chief complaint: Nausea/Vomiting/Diarrhea Stated complaint: abdominal pain x4 Time Seen by Provider: 02/18/25 21:06 Mode of Arrival: Ambulatory Source of Information: Patient Description of Symptoms (Recalled from ER Triage Doc. by RN): Pt has been experiencing constipation for the last week and took miralax yesterday and is now complaining of diarrhea and nausea. Pt states she has just felt sick for going on a year now. Has a history of IBS. History of Present Illness HPI narrative: Patient is a 69-year-old female who presented to the emergency department with abdominal pain, diarrhea and vomiting. Patient states that last week she had not had a bowel movement for 4 days and therefore her pharmacist recommended that she take MiraLAX. Patient states that she took 2 doses and then she had significant diarrhea. Patient states that her diarrhea then resolved and she was having some constipation and now she is having abdominal pain. Patient reports diffuse abdominal pain. Patient does report some pain with eating as well. Patient states that she has lost weight over the last year as she has been sick multiple times. Patient reports nausea but no significant vomiting. Patient denies any fevers. Patient denies any chest pain or shortness of breath. Related Data Previous Rx's ?Medication ?Instructions ?Recorded bisoprolol fumarate 10 mg tablet 10 mg PO DAILY #90 tabs 05/29/24 atorvastatin 20 mg tablet See Rx Instructions .Route 06/06/24 .COMPLEX #90 tabs trimethoprim 100 mg tablet 100 mg PO DAILY #90 tabs 09/22/24 [id number]-tenhprtu-[place] 2 cap PO .With meals #200 caps 10/15/24 36,000-114,000-180,000 unit capsule,delay rel (Creon) triamcinolone acetonide 0.1 % 1 applic topical TID Apply to 10/23/24 topical cream affected area #30 grams eluxadoline 75 mg tablet (Viberzi) 75 mg PO BID #60 tabs 12/24/24 oxybutynin chloride 10 mg 10 mg PO DAILY #30 tabs 02/06/25 tablet,extended release 24 hr ondansetron 4 mg disintegrating 4 mg PO Q6-8H nausea and vomiting 02/11/25 tablet #40 tabs dicyclomine 20 mg tablet 20 mg PO BID #20 tabs 02/18/25 ondansetron 4 mg disintegrating 4 mg PO DAILY PRN nausea and 02/18/25 tablet vomiting 5 days #10 tabs levocetirizine 5 mg tablet See Rx Instructions .Route 02/20/25 .COMPLEX #90 tabs losartan 25 mg tablet See Rx Instructions .Route 02/20/25 .COMPLEX #90 tabs clonazepam 0.5 mg tablet (Klonopin) 0.5 mg PO BID #60 tabs 02/23/25 Allergies Allergy/AdvReac Type Severity Reaction Status Date / Time cefaclor (From Ceclor) Allergy Unknown Verified 01/09/25 11:06 allergy reaction clindamycin Allergy Unknown Verified 01/09/25 11:06 allergy reaction potassium chloride AdvReac Vomiting Verified 01/09/25 11:06 steroids AdvReac Vomiting Uncoded 01/09/25 11:06 [facility] Disclaimer: The information contained in this section may have been updated after the patient was seen, as this information can be updated by other users. 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 Dyspnea HTN (hypertension) Right bundle branch block Abnormal electrocardiography Chest pain Surgical History History of esophagogastroduodenoscopy (EGD) History of colonoscopy History of appendectomy Family History Other Diabetes Social History Smoking Status: Never smoker alcohol intake: never substance use type: denies use current occupational status: retired Travel in the last 8 weeks?: None household members: family and children housing: house caffeine: Yes Other Medical History Have you received the Flu Vaccine for this season: No Have you received the Pneumonia Vaccine: No ROS Obtained: Yes All systems reviewed & no additional complaints except as documented and Yes Systems reviewed as appropriate & no additional complaints except as documented Physical Exam General General appearance: alert and in no apparent distress Head Head exam: atraumatic, normocephalic and normal inspection Eye Eye exam: Present normal appearance, PERRL and EOMI; Absent scleral icterus ENT ENT exam: Present normal exam and normal external ear exam Neck Neck exam: Present normal inspection and full ROM Chest Chest inspection: Present normal inspection and symmetric chest wall rise Respiratory Respiratory exam: Present normal lung sounds bilaterally; Absent respiratory distress or wheezes Cardiovascular Cardiovascular exam: Present regular rate, normal rhythm and normal heart sounds Abdominal Exam Abdominal exam: Present soft, distention and tenderness (lower abdominal tenderness); Absent guarding or rebound Extremities Exam Extremities exam: Present normal inspection and full ROM Back Exam Back exam: Present normal inspection and full ROM Neurological Exam Neurological exam: Present alert and oriented X3 Psychiatric Psychiatric exam: Present normal affect and normal mood Skin Skin exam: Present warm and dry Medical Decision Making Medical Records Medical records reviewed: Yes I reviewed the patient's medical records. Screening: Per USPSTF and CDC recommendations, given the prevalence of disease in our region, it is our hospital?s policy to screen for HIV and viral Hepatitis for all patients aged 18 and over and those with ongoing risk factors. Charlie Inquiry Pt receiving controlled substance: No Vital Signs: 02/18/25 20:22 02/18/25 21:24 02/18/25 22:00 Temperature 97.9 F 97.9 F Temperature Source Temporal Artery Scan Pulse Rate 65 52 L Pulse Rate [Right Radial] 63 Respiratory Rate 20 17 Blood Pressure 168/104 H 174/81 H Blood Pressure [Right Arm] 116/88 Blood Pressure Mean 112 Blood Pressure Mean [Right Arm] 97 Blood Pressure Source Automatic Cuff Blood Pressure Source [Right Arm] Automatic Cuff Blood Pressure Position Blood Pressure Position [Right Arm] Sitting 02 Sat by Pulse Oximetry 100 96 100 Oxygen Delivery Method Room Air Room Air 02/19/25 00:44 Temperature 97.8 F Temperature Source Oral Pulse Rate 94 H Pulse Rate [Right Radial] Respiratory Rate 16 Blood Pressure 157/94 H Blood Pressure [Right Arm] Blood Pressure Mean Blood Pressure Mean [Right Arm] Blood Pressure Source Automatic Cuff Blood Pressure Source [Right Arm] Blood Pressure Position Sitting Blood Pressure Position [Right Arm] 02 Sat by Pulse Oximetry Oxygen Delivery Method Room Air Lab Data Lab results reviewed: Yes I reviewed the patient's lab results. Lab Results 02/18/25 20:39: WBC 6.7, RBC 3.81 L, Hgb 11.7 L, Hct 34.4 L, MCV 90.3, MCH 30.7, MCHC 34.0, RDW 12.5, Plt Count 218, MPV 9.7, Neut % (Auto) 62.0, Lymph % (Auto) 28.8, [place] % (Auto) 7.2, Eos % (Auto) 0.7, Baso % (Auto) 1.0, Neut # (Auto) 4.1, Lymph # (Auto) 1.9, [place] # (Auto) 0.5, Eos # (Auto) 0.1, Baso # (Auto) 0.1, Sodium 134 L, Potassium 4.0, Chloride 99, Carbon Dioxide 26, Anion Gap 13.0, BUN 13, Creatinine 1.50 H, Estimated Creat Clear 26, Estimated GFR 35 L, Est GFR ( Amer) 42 L, Glucose 122 H, Calcium 9.7, Total Bilirubin 0.7, AST 37 H, ALT 24, Alkaline Phosphatase 91, Total Protein 8.4 H, Albumin 4.8, Globulin 3.6 H, Albumin/Globulin Ratio 1.3, Lipase 288 02/18/25 20:39 02/18/25 20:39 Orders (Tests/Meds): ED MEDICATIONS Discontinued Medications Generic Name Dose Route Start Last Admin Trade Name Freq PRN Reason Stop Dose Admin Belladonna Alkaloids 60 ml 02/18/25 21:22 02/18/25 21:44 Belladonna Alkaloids 60 Ml Ml PO 02/18/25 21:23 5 ml ONCE ONE Administration Sodium Chloride 1,000 mls @ 999 mls/hr 02/18/25 22:05 02/18/25 23:18 Sod Chlor 0.9% 1000ml Bag IV 02/18/25 23:05 Infused .Q1H1M ONE Infusion Morphine Sulfate 2 mg 02/18/25 22:15 02/18/25 22:25 Morphine 2mg/Ml Syringe IV 02/18/25 22:16 2 mg ONCE ONE Administration Morphine Sulfate 2 mg 02/18/25 23:48 02/19/25 00:30 Morphine 2mg/Ml Syringe IV 02/18/25 23:49 2 mg ONCE ONE Administration Ondansetron HCl 4 mg 02/18/25 22:05 02/18/25 22:16 Ondansetron 4mg/2ml Vial IM 02/18/25 22:06 Not Given ONCE ONE Ondansetron HCl 4 mg 02/18/25 22:14 02/18/25 22:17 Ondansetron 4mg/2ml Vial IV 02/18/25 22:15 4 mg ONCE ONE Administration Prochlorperazine Edisylate 5 mg 02/18/25 23:08 02/18/25 23:14 Prochlorperazine 10mg/2ml Vial IV 02/18/25 23:09 5 mg ONCE ONE Administration ORDERS Category Date Time Status CT abdomen pelvis wo con Stat Cat Scan 02/18/25 21:22 Completed POCUS Point of Care (ER Only) Stat Exams 02/18/25 21:22 Completed Complete Blood Count Auto Diff Stat Lab 02/18/25 20:39 Completed Comprehensive Metabolic Panel Stat Lab 02/18/25 20:39 Completed Lipase Stat Lab 02/18/25 20:39 Completed Medical Decision Narrative: Patient is a 69-year-old female who presented to the emergency department with a mixture of constipation and diarrhea. On arrival, patient was hemodynamically stable with unremarkable vital signs. Differential includes but not limited to: Bowel obstruction, enteritis, laxative induced diarrhea, electrolyte abnormalities, intra-abdominal mass, intra-abdominal abscess, amongst others. Patient's labs were reviewed and interpreted by myself: CBC showed no leukocytosis, CMP was unremarkable, lipase is normal. Patient CT scan was reviewed and interpreted by myself and showed mild enteritis. No other acute pathology. Patient was instructed to eat and drink a bland diet over the next few days patient was otherwise discharged home in stable condition, return precautions were discussed. Critical Care Critical Care Time Critical Care Time: No
[2025-02-18 21:09] LABS: Alanine Aminotransferase 24 U/L (12-78); Albumin Level 4.8 g/dl (3.5-5.0); Albumin/Globulin Ratio 1.3 (1.1-1.8); Alkaline Phosphatase 91 U/L (38-126); Anion Gap 13.0 mEq/L (5-15); Aspartate Amino Transferase 37 U/L (14-36); Bilirubin,Total 0.7 mg/dl (0.2-1.3); Blood Urea Nitrogen 13 mg/dl (7-17); Calcium 9.7 mg/dl (8.4-10.2); Carbon Dioxide 26 mmol/L (22.0-30.0); Chloride 99 mmol/L (98-107); Creatinine Clearance Estimated 26 mL/min (50-200); Creatinine,Serum 1.50 mg/dl (0.52-1.04); Estimated Glomerular Filt Rate 35 ml/min (>60); GFR (African American) 42 ML/MIN (>60); Globulin 3.6 g/dL (1.3-3.2); Glucose 122 mg/dl (74-100); Potassium 4.0 mmoL/L (3.5-5.1); Sodium 134 mmol/L (136-145); Total Protein,Serum 8.4 g/dl (6.3-8.2)
--- NOTE | 2025-02-18 21:22 | CT_ITS ---
PROCEDURE INFORMATION: Exam: CT Abdomen And Pelvis Without Contrast Exam date and time: 02/18/2025 9:37 PM Age: 69 years old Clinical indication: Abdominal pain TECHNIQUE: Imaging protocol: Computed tomography of the abdomen and pelvis without contrast. Radiation optimization: All CT scans at this facility use at least one of these dose optimization techniques: automated exposure control; mA and/or kV adjustment per patient size (includes targeted exams where dose is matched to clinical indication); or iterative reconstruction. COMPARISON: CT ANGIO ABDOMEN PELVIS 05/19/2024 5:34 AM FINDINGS: Liver: Unremarkable. No mass. Gallbladder and biliary ducts: Unremarkable. No calcified stones. No ductal dilation. Pancreas: Unremarkable. No ductal dilation. Spleen: Unremarkable. No splenomegaly. Adrenal glands: Unremarkable. No mass. Kidneys and ureters: No nephroureterolithiasis or hydroureter. Stomach and bowel: Nonobstructive fluid-filled small bowel loops. Appendix: No evidence of appendicitis. Intraperitoneal space: Unremarkable. No free air. No significant fluid collection. Vasculature: Unremarkable. No abdominal aortic aneurysm. Lymph nodes: Unremarkable. No enlarged lymph nodes. Urinary bladder: Unremarkable as visualized. Reproductive: Unremarkable as visualized. Bones/joints: Unremarkable. No acute fracture. Soft tissues: Unremarkable. IMPRESSION: Nonobstructive fluid-filled small bowel loops. Correlate for low-grade enteritis symptoms.
[2025-02-18 21:24] VITALS: BP 168/104; PULSE 65; RESP 17; TEMP 36.6; O2SAT 96
[2025-02-18 21:37] LABS: Lipase 288 U/L (23-300)
[2025-02-18] MEDS: BELLADONNA ALKALOIDS 60 ML ML PO (21:44)
--- NOTE | 2025-02-18 21:45 | PC.NURSE ---
patient took a single sip of the belladonna alkaloids PO medication and refused to take the rest. provider notified.
[2025-02-18 22:00] VITALS: BP 174/81; PULSE 52; O2SAT 100
[2025-02-18] MEDS: 0.9 % SODIUM CHLORIDE 1000ML 1,000 ML 999 ML IV (22:17)
[2025-02-18] MEDS: ONDANSETRON 4MG/2ML VIAL 4 MG IV (22:17)
[2025-02-18] MEDS: MORPHINE 2MG/ML SYRINGE 2 MG IV (22:25)
[2025-02-18] MEDS: PROCHLORPERAZINE 10MG/2ML VIAL 5 MG IV (23:14)
[2025-02-19] MEDS: MORPHINE 2MG/ML SYRINGE 2 MG IV (00:30)
[2025-02-19 00:44] VITALS: BP 157/94; PULSE 94; RESP 16; TEMP 36.6; O2SAT 97
== END 2025-02-19 00:51 | disposition home or self-care (01) ==
PROVIDERS: Emergency Provider Student in an Organized Health Care Education/Training Program; PCP Internal Medicine
DX: R10.84 Generalized abdominal pain (principal); K52.9 Noninfective gastroenteritis and colitis, unspecified; R11.0 Nausea
CPT/HCPCS: 74176; 80053; 83690; 85025; 96361; 96374; 96375; 96376; 99285; J0780; J2270; J2405; J7030